=== PATIENT | female | born 1950 | race Hispanic/Latino ===

== ENCOUNTER 2017-05-18 09:49 | Inpatient (IN) | payer MEDICARE ==
[2017-05-18] MEDS ORDERED: NITROSTAT SL ONE (10:21)
[2017-05-18] MEDS: NITROSTAT SL ONE ×3 (10:30→11:25)
--- NOTE | 2017-05-18 10:30 | Emergency Department Report ---
ED Chest Pain HPI - General Chief Complaint: Chest Pain Stated Complaint: CHEST PAIN Time Seen by Provider: 05/18/17 10:16 Source: patient, EMS Mode of arrival: Stretcher Limitations: No Limitations - History of Present Illness Initial Comments: Mrs. Ferrari presents with chest pain since yesterday. The pain resolved with nitroglycerin and aspirin. The pain recurred while in the office of Dr. Lovett at [facility]. Patient arrived via EMS. Chest pain transiently improved with ASA and nitroglycerin. Pain has now returned to 10/[address] Lovett communicated with Dr. Carr. Dr. Carr spoke with my ED colleague Dr. Humberto KINCAID Complaint: chest pain -: Gradual, days(s) (1) Onset: during rest Pain Location: substernal Pain Radiation: back Severity: severe Severity scale (0 -10): 10 Quality: squeezing Consistency: constant Improves With: nitroglycerin Worsens With: nothing Context: other (history of non-ST elevation AR LAD was stented December [address] Lovett she feels that the recent anginal is due to RCA chronically occluded with collaterals despite medical management Dr. Lovett felt the patient may need possible PTCA of chronically occluded RCA) Treatments Prior to Arrival: aspirin, nitroglycerin - Related Data Home Medications Medication Instructions Recorded Confirmed Last Taken Metoprolol [Lopressor TAB] 50 mg PO BID 10/26/16 02/28/17 10/26/16 Furosemide [Lasix] 20 mg PO DAILY 02/28/17 02/28/17 Unknown methOCARBAMOL [Robaxin TAB] 1,000 mg PO Q8H PRN 02/28/17 02/28/17 Unknown Previous Rx's Medication Instructions Recorded Last Taken Type AtorvaSTATin [Lipitor] 40 mg PO QHS #30 tablet 12/30/15 10/26/16 Rx Losartan [Cozaar] 50 mg PO QDAY #30 tablet 12/30/15 10/26/16 Rx Nitroglycerin [Nitrostat] 0.4 mg SL .Q5MIN PRN #60 tablet 12/30/15 10/26/16 Rx Acetaminophen [Acetaminophen TAB] 325 mg PO Q6H PRN #30 tablet 03/01/17 Unknown Rx Aspirin EC [Aspirin Enteric Coated 81 mg PO DAILY #30 tablet 03/01/17 Unknown Rx TAB] AtorvaSTATin [Lipitor] 40 mg PO QHS #30 tablet 03/01/17 Unknown Rx Clopidogrel [Plavix] 75 mg PO DAILY #30 tablet 03/01/17 Unknown Rx ISOSORBIDE MONOnitrate [Imdur ER] 60 mg PO QDAY #30 day 03/01/17 Unknown Rx LORazepam [Ativan] 1 mg PO DAILY PRN tablet 03/01/17 Unknown Rx Pantoprazole [Protonix TAB] 40 mg PO QDAY #7 day 03/01/17 Unknown Rx Ranolazine ER [Ranexa ER] 1,000 mg PO BID #60 day 03/01/17 Unknown Rx Allergies Allergy/AdvReac Type Severity Reaction Status Date / Time No Known Allergies Allergy Unverified 12/24/15 08:47 Heart Score - HEART Score History: Highly suspicious EKG: Non-specific Age: > 65 Risk factors: > 3 risk factors or hx of atherosclerotic disease Troponin: < normal limit HEART Score: 7 ED Review of Systems ROS: Stated complaint: CHEST PAIN Other details as noted in HPI Comment: All other systems reviewed and negative Constitutional: denies: fever, malaise Respiratory: denies: cough Cardiovascular: chest pain ED Past Medical Hx - Past Medical History Hx Hypertension: Yes Hx Heart Attack/AMI: Yes Hx Congestive Heart Failure: Yes Hx Arthritis: Yes - Surgical History Hx Coronary Stent: Yes - Social History Smoking Status: Former Smoker - Medications Home Medications: Home Medications Medication Instructions Recorded Confirmed Last Taken Type AtorvaSTATin [Lipitor] 40 mg PO QHS #30 tablet 12/30/15 02/28/17 10/26/16 Rx Losartan [Cozaar] 50 mg PO QDAY #30 tablet 12/30/15 02/28/17 10/26/16 Rx Nitroglycerin [Nitrostat] 0.4 mg SL .Q5MIN PRN #60 tablet 12/30/15 02/28/17 Rx Metoprolol [Lopressor TAB] 50 mg PO BID 10/26/16 02/28/17 10/26/16 History Furosemide [Lasix] 20 mg PO DAILY 02/28/17 02/28/17 Unknown History methOCARBAMOL [Robaxin TAB] 1,000 mg PO Q8H PRN 02/28/17 02/28/17 Unknown History Acetaminophen [Acetaminophen TAB] 325 mg PO Q6H PRN #30 tablet 01/18/18 Unknown Rx Aspirin EC [Aspirin Enteric Coated 81 mg PO DAILY #30 tablet 03/01/17 Unknown Rx TAB] AtorvaSTATin [Lipitor] 40 mg PO QHS #30 tablet 03/01/17 Unknown Rx Clopidogrel [Plavix] 75 mg PO DAILY #30 tablet 03/01/17 Unknown Rx ISOSORBIDE MONOnitrate [Imdur ER] 60 mg PO QDAY #30 day 03/01/17 Unknown Rx LORazepam [Ativan] 1 mg PO DAILY PRN tablet 03/01/17 Unknown Rx Pantoprazole [Protonix TAB] 40 mg PO QDAY #7 day 03/01/17 Unknown Rx Ranolazine ER [Ranexa ER] 1,000 mg PO BID #60 day 03/01/17 Unknown Rx ED Physical Exam - General Limitations: No Limitations General appearance: alert, other (appears in severe pain) - Head Head exam: Present: atraumatic, normocephalic - Eye Eye exam: Present: normal appearance - ENT ENT exam: Present: mucous membranes moist - Neck Neck exam: Present: normal inspection - Respiratory Respiratory exam: Present: normal lung sounds bilaterally. Absent: respiratory distress, wheezes, rales, rhonchi - Cardiovascular Cardiovascular Exam: Present: regular rate, normal rhythm, normal heart sounds. Absent: systolic murmur, diastolic murmur, rubs, gallop - GI/Abdominal GI/Abdominal exam: Present: soft, normal bowel sounds. Absent: distended, tenderness, guarding, rebound - Extremities Exam Extremities exam: Present: normal inspection - Back Exam Back exam: Present: normal inspection - Neurological Exam Neurological exam: Present: alert, oriented X3 - Psychiatric Psychiatric exam: Present: normal affect, normal mood - Skin Skin exam: Present: warm, dry, intact, normal color. Absent: rash ED Course Vital Signs 05/18/17 10:01 Temperature 97.8 F Pulse Rate 64 Respiratory 17 Rate Blood Pressure 149/78 O2 Sat by Pulse 98 Oximetry - Reevaluation(s) Reevaluation #1: 05/18/17 10:33 I reviewed EKG sent with the patient from Dr. Lovett's office. I reviewed 12 lead heart tracing for EMS. Both revealed inferior and anterior Q waves without significant ST elevation or acute ischemia LAYNE score - Layne Score Age > 65: (1) Yes Aspirin use within the Past 7 Days: (1) Yes 3 or more CAD Risk Factors: (1) Yes 2 or more Angina events in past 24 hrs: (0) No Known CAD with more than 50% Stenosis: (1) Yes Elevated Cardiac Markers: (0) No ST Deviation Greater than 0.5mm: (0) No LAYNE Score: 4 ED Medical Decision Making - Medical Decision Making Mrs. Ferrari will be admitted for unstable angina, acute coronary syndrome. I have discussed this case with pharmacy delivery driver Dr. Carr. Critical care attestation.: If time is entered above; I have spent that time in minutes in the direct care of this critically ill patient, excluding procedure time. ED Disposition Clinical Impression: Acute coronary syndrome, Unstable angina pectoris due to coronary arteriosclerosis Disposition: 09 OP ADMIT IP TO THIS HOSP Is pt being admited?: Yes Does the pt Need Aspirin: No Condition: Stable Time of Disposition: 10:36
--- NOTE | 2017-05-18 10:56 | XRay Report ---
PORTABLE CHEST INDICATION: Chest pain. COMPARISON: 02/28/2017 FINDINGS: Portable, frontal chest radiograph demonstrates stable cardiomediastinal silhouette, slight aortic knob calcifications and slightly prominent/crowded lung markings centrally. Mild biapical scarring/pleural thickening. No pleural effusions or CHF. EKG leads. Intact bones. CONCLUSION: No acute chest process or significant interval change, as described. Thank you for the opportunity to participate in this patient's care.
[2017-05-18] MEDS ORDERED: TRIDIL DRIP 50MG/250ML 50 MG/250 ML BOTTLE IV SCH (11:00)
[2017-05-18 11:09] LABS: Basophils % (Auto) 0.7 % (0.0-1.8); Eosinophils # (Auto) 0.3 K/mm3 (0.0-0.4); Hematocrit 39.5 % (30.3-42.9); Hemoglobin 12.6 gm/dl (10.1-14.3); Lymphocytes # (Auto) 1.6 K/mm3 (1.2-5.4); Lymphocytes % (Auto) 26.5 % (13.4-35.0); Mean Corpuscular HGB Conc 32 % (30-34); Mean Corpuscular Hemoglobin 29 pg (28-32); Mean Corpuscular Volume 92 fl (79-97); Monocytes # (Auto) 0.3 K/mm3 (0.0-0.8); Monocytes % (Auto) 5.9 % (0.0-7.3); Platelet Count 229 K/mm3 (140-440); Red Blood Count 4.31 M/mm3 (3.65-5.03); Red Cell Distribution Width 16.2 % (13.2-15.2)
[2017-05-18 11:10] LABS: Alanine Aminotransferase 16 units/L (7-56); Albumin 3.7 g/dL (3.9-5); BUN/Creatinine Ratio 23; Blood Urea Nitrogen 21 mg/dL (7-17); Calcium 9.3 mg/dL (8.4-10.2); Hemolysis Index 52
--- NOTE | 2017-05-18 11:12 | Progress Note ---
Assessment and Plan Angina Hx of CAD LHC: patent LAD stent. There was chronic total occlusion of the RCA with left to right collaterals. Left ventricular ejection fraction 35%. Risk factor modification and medical management was recommended. Hypertension Ischemic Cardiomyopathy Recommend: Medical therapy for coronary artery disease to include imdur and ranexa twice a day. Subjective Date of service: 05/18/17 Interval history: This is a 66yr old woman with a history of coronary artery disease. She presented to his flue blower's office this morning with increasing chest pain. 12 lead EKG is a sinus rhythm with old inferior infarct. No acute ischemia. She was sent to the emergency room for further evaluation and management. Patient underwent a cardiac catheterization 2 months ago which reports a patent LAD stent. There was chronic total occlusion of the RCA with left to right collaterals. Left ventricular ejection fraction 35%. Risk factor modification and medical management was recommended. Objective Vital Signs Temp Pulse Resp BP BP Pulse Ox 05/18/17 10:51 18 98 05/18/17 10:40 65 126/75 05/18/17 10:30 68 126/75 05/18/17 10:25 97.8 F 64 17 149/78 98 05/18/17 10:01 97.8 F 64 17 149/78 98
[2017-05-18 11:17] LABS: INR 0.85 (0.87-1.13)
[2017-05-18 11:18] LABS: Partial Thromboplastin Time 22.5 Sec. (24.2-36.6)
--- NOTE | 2017-05-18 12:26 | History and Physical Report ---
History of Present Illness Chief complaint: My chest hurts History of present illness: 66 YO Female with CAD, HTN, CHF, Nicotine Dependence, OA, Obesity presents to ED for evaluation. Pt states that she has experienced pain in her chest for the past 2 days with worsening symptoms over the past 1 day. Pt states that pain is 10/10, substernal, radiates to her back, crushing in nature, not worsened with exertion or relieved with rest. Pt was seen and evaluated in her dark room attendant's office and was sent to ED for further care and evaluation. EMS notified and patient transported to [facility]. Pt denies fever, chills, palpitations, NVD, diaphoresis, shortness of breath, back pain, BRBPR, productive cough, trauma, or recent ill contacts. Pt seen an evaluated in ED and found to have unstable angina. Pt initiated on nitro drip and admitted to ICU. Past History Past Medical History: acute [place], arthritis, CAD, heart failure, hypertension Past Surgical History: Other (cardiac stent placement) Social history: , lives with family. denies: smoking, alcohol abuse, prescription drug abuse Family history: CAD, hypertension Medications and Allergies Allergies Allergy/AdvReac Type Severity Reaction Status Date / Time No Known Allergies Allergy Unverified 12/24/15 08:47 Home Medications Medication Instructions Recorded Confirmed Last Taken Type Losartan [Cozaar] 50 mg PO QDAY #30 tablet 12/30/15 05/18/17 10/26/16 Rx Nitroglycerin [Nitrostat] 0.4 mg SL .Q5MIN PRN #60 tablet 12/30/15 05/18/17 Rx Metoprolol [Lopressor TAB] 50 mg PO BID 10/26/16 05/18/17 10/26/16 History Furosemide [Lasix] 20 mg PO DAILY 02/28/17 05/18/17 Unknown History Aspirin EC [Aspirin Enteric Coated 81 mg PO DAILY #30 tablet 03/01/17 05/18/17 Unknown Rx TAB] AtorvaSTATin [Lipitor] 40 mg PO QHS #30 tablet 03/01/17 05/18/17 Unknown Rx Clopidogrel [Plavix] 75 mg PO DAILY #30 tablet 03/01/17 05/18/17 Unknown Rx Pantoprazole [Protonix TAB] 40 mg PO QDAY #7 day 03/01/17 05/18/17 Unknown Rx Ranolazine ER [Ranexa ER] 1,000 mg PO BID #60 day 03/01/17 05/18/17 Unknown Rx Acetaminophen/Codeine [Tylenol 1 tab PO BID PRN 05/18/17 05/18/17 Unknown History /Codeine # 3 tab] Celecoxib [Celebrex] 100 mg PO BID 05/18/17 05/18/17 Unknown History Duloxetine HCl [Cymbalta] 30 mg PO QDAY 05/18/17 05/18/17 Unknown History Gabapentin [Neurontin] 300 mg PO HS 05/18/17 05/18/17 Unknown History HYDROcodone/APAP 7.5-325 [[place] 1 each PO BID 05/18/17 05/18/17 Unknown History 7.5/325] ISOSORBIDE MONOnitrate [Imdur ER] 60 mg PO QDAY 05/18/17 05/18/17 Unknown History LORazepam [Ativan] 0.5 - 1 mg PO DAILY PRN 05/18/17 05/18/17 Unknown History Active Meds: Active Medications Nitroglycerin/Dextrose (Tridil Drip 50mg/250ml) 50 mg in 250 mls @ 3 mls/hr IV TITR RU; Protocol Last Titration: 05/18/17 12:15 Dose: 40 mcg/min, 12 mls/hr Review of Systems Constitutional: no weight loss, no weight gain, no fever, no chills Ears, nose, mouth and throat: no ear pain, no ear discharge, no tinnitis, no decreased hearing, no nose pain, no nasal congestion, no nasal discharge, no sinus pressure Breasts: no change in shape, no swelling, no mass Cardiovascular: chest pain, no palpitations, no rapid/irregular heart beat, no edema, no lightheadedness Respiratory: no cough, no cough with sputum, no excessive sputum, no hemoptysis Gastrointestinal: no nausea, no vomiting, no diarrhea, no constipation Genitourinary Female: no pelvic pain, no flank pain, no menorrhagia, no dysuria , no urinary frequency, no urgency Rectal: no pain, no incontinence, no bleeding Musculoskeletal: no neck stiffness, no neck pain, no shooting arm pain, no arm numbness/tingling, no low back pain, no shooting leg pain, no leg numbness/ tingling Integumentary: no rash, no pruritis, no redness, no wounds, no jaundice, no boils Neurological: no head injury, no transient paralysis, no paralysis, no weakness , no parathesias, no numbness, no tingling, no seizures, no syncope Psychiatric: no memory loss, no change in sleep habits, no sleep disturbances, no insomnia, no hypersomnia, no change in appetite, no change in libido, no suicidal ideation Endocrine: no cold intolerance, no heat intolerance, no polyphagia, no excessive thirst, no polydipsia, no polyuria, no nocturia, no excessive sweating , no flushing Hematologic/Lymphatic: no easy bruising, no easy bleeding, no lymphadenopathy, no lymphedema Allergic/Immunologic: no urticaria, no allergic rhinitis, no wheezing, no persistent infections, no anaphylaxis, no angioedema Exam - Constitutional Vitals: Temp Pulse Resp BP Pulse Ox 97.8 F 68 18 156/73 98 05/18/17 10:25 05/18/17 11:25 05/18/17 10:51 05/18/17 11:25 05/18/17 10:51 General appearance: Present: mild distress, obese - EENT Eyes: Present: PERRL ENT: hearing intact, clear oral mucosa - Neck Neck: Present: supple, normal ROM - Respiratory Respiratory effort: normal Respiratory: bilateral: CTA - Cardiovascular Heart Sounds: Present: S1 & S2. Absent: rub, click - Extremities Extremities: pulses symmetrical, No edema Peripheral Pulses: within normal limits - Abdominal General gastrointestinal: Present: soft, non-tender, non-distended, normal bowel sounds Female genitourinary: Present: normal - Integumentary Integumentary: Present: clear - Musculoskeletal Musculoskeletal: strength equal bilaterally - Psychiatric Psychiatric: appropriate mood/affect, intact judgment & insight, memory intact - Neurologic Neurologic: CNII-XII intact, gait normal Results - Labs CBC & Chem 7: 05/18/17 10:36 05/18/17 10:40 Labs: Abnormal lab results 05/18/17 05/18/17 05/18/17 Range/Units 10:36 10:40 10:40 RDW 16.2 H (13.2-15.2) % Eos % (Auto) 5.0 H (0.0-4.3) % PT 12.0 L (12.2-14.9) Sec. INR 0.85 L (0.87-1.13) APTT 22.5 L (24.2-36.6) Sec. Sodium 136 L (137-145) mmol/L BUN 21 H (7-17) mg/dL Glucose 111 H (65-100) mg/dL Albumin 3.7 L (3.9-5) g/dL Assessment and Plan - Patient Problems (1) Unstable angina pectoris due to coronary arteriosclerosis Current Visit: Yes Status: Acute Plan to address problem: Nitro drip, cardiology consulted, heparin, supportive care. The high probability of a clinically significant, sudden or life threatening deterioration of the [cardiac, renal, pulmonary] system(s) required my full and direct attention, intervention and personal management. The aggregate critical care time was [65] minutes. This time is in addition to time spent performing reported procedures but includes the following: [x] Data Review and interpretation [x] Patient assessment and monitoring of vital signs [x] Documentation [x] Medication orders and management (2) CHF (congestive heart failure) Current Visit: No Status: Acute Qualifiers: Heart failure type: systolic Heart failure chronicity: acute on chronic Qualified Code(s): I50.23 - Acute on chronic systolic (congestive) heart failure Plan to address problem: Cardiology consulted in ED: Admit to ICU, nitro drip as per cardiology team, monitor uop q shift, strict I/O, daily weight, afterload reduction, diuresis, low sodium diet. (3) HTN (hypertension) Current Visit: No Status: Acute (4) CAD (coronary artery disease) Current Visit: No Status: Chronic Qualifiers: Associated angina: with angina and documented spasm Plan to address problem: Cardiology consulted, Nitro drip, pain control, supportive care. (5) DVT prophylaxis Current Visit: No Status: Acute
[2017-05-18] MEDS ORDERED: SODIUM CHLORIDE FLUSH SYRINGE 10 ML IV PRN (12:51)
[2017-05-18] MEDS ORDERED: PROVENTIL IH PRN (12:51)
[2017-05-18] MEDS ORDERED: MORPHINE IV PRN (12:51)
[2017-05-18] MEDS ORDERED: ATIVAN PO PRN (12:52)
[2017-05-18] MEDS: LOPRESSOR PO SCH (21:06)
[2017-05-18] MEDS: NEURONTIN PO SCH (21:06)
[2017-05-18] MEDS: SODIUM CHLORIDE FLUSH SYRINGE 10 ML IV SCH (21:07)
[2017-05-19] MEDS: RANEXA ER PO SCH ×3 (06:52→22:06)
[2017-05-19] MEDS: LASIX PO SCH (07:37)
--- NOTE | 2017-05-19 10:50 | Progress Note ---
Assessment and Plan - Patient Problems (1) Unstable angina pectoris due to coronary arteriosclerosis Current Visit: Yes Status: Acute (2) Cardiomyopathy Current Visit: No Status: Acute (3) HTN (hypertension) Current Visit: No Status: Acute Subjective Date of service: 05/19/17 Interval history: [place] C\O NOW Objective Vital Signs Temp Pulse Resp BP Pulse Ox 05/19/17 08:00 97.4 F L 05/18/17 22:00 90 05/18/17 19:43 96 05/18/17 17:32 98.2 F 05/18/17 17:16 80 10 L 118/64 96 05/18/17 17:00 71 17 112/51 96 05/18/17 16:46 76 19 104/59 97 05/18/17 16:30 70 16 108/63 96 05/18/17 16:15 71 15 114/58 96 05/18/17 16:00 69 23 111/55 95 05/18/17 15:45 71 19 116/62 96 05/18/17 15:30 69 19 111/60 94 05/18/17 15:18 68 20 128/65 97 05/18/17 15:00 69 26 H 112/49 98 05/18/17 14:45 70 18 113/61 98 05/18/17 14:30 68 18 131/70 95 05/18/17 14:15 65 17 112/73 96 05/18/17 14:00 66 18 117/64 94 05/18/17 13:46 67 19 113/63 95 05/18/17 13:30 67 18 117/68 95 05/18/17 13:15 67 16 114/60 95 05/18/17 13:00 67 18 116/57 95 05/18/17 12:45 67 19 124/65 95 05/18/17 12:30 68 12 142/61 96 05/18/17 12:16 69 23 139/59 97 05/18/17 12:00 68 19 148/69 94 05/18/17 11:45 67 14 134/71 98 05/18/17 11:30 67 24 127/62 96 05/18/17 11:25 68 156/73 05/18/17 11:16 76 26 H 127/62 97 05/18/17 11:00 67 25 H 127/62 97 05/18/17 10:51 18 98 - Physical Examination General: Other (OW) HEENT: Positive: PERRL Neck: Positive: neck supple Cardiac: Positive: Reg Rate and Rhythm Lungs: Positive: clear to auscultation Abdomen: Positive: Unremarkable - Labs and Meds Cardiac Enzymes 05/18/17 Range/Units 10:40 AST 16 (5-40) units/L Coagulation 05/18/17 Range/Units 10:40 PT 12.0 L (12.2-14.9) Sec. INR 0.85 L (0.87-1.13) APTT 22.5 L (24.2-36.6) Sec. CBC 05/18/17 Range/Units 10:36 WBC 6.0 (4.5-11.0) K/mm3 RBC 4.31 (3.65-5.03) M/mm3 Hgb 12.6 (10.1-14.3) gm/dl Hct 39.5 (30.3-42.9) % Plt Count 229 (140-440) K/mm3 Lymph # 1.6 (1.2-5.4) K/mm3 [place] # 0.3 (0.0-0.8) K/mm3 Eos # 0.3 (0.0-0.4) K/mm3 Baso # 0.0 (0.0-0.1) K/mm3 Comprehensive Metabolic Panel 05/18/17 Range/Units 10:40 Sodium 136 L (137-145) mmol/L Potassium 4.9 (3.6-5.0) mmol/L Chloride 99.0 (98-107) mmol/L Carbon Dioxide 23 (22-30) mmol/L BUN 21 H (7-17) mg/dL Creatinine 0.9 (0.7-1.2) mg/dL Glucose 111 H (65-100) mg/dL Calcium 9.3 (8.4-10.2) mg/dL AST 16 (5-40) units/L ALT 16 (7-56) units/L Alkaline Phosphatase 65 (35-129) units/L Total Protein 6.8 (6.3-8.2) g/dL Albumin 3.7 L (3.9-5) g/dL
[2017-05-19] MEDS: PLAVIX PO SCH (11:00)
[2017-05-19] MEDS: IMDUR PO SCH (11:00)
[2017-05-19] MEDS: HALFPRIN EC PO SCH (11:00)
[2017-05-19] MEDS: COZAAR PO SCH (11:00)
[2017-05-19] MEDS: CYMBALTA PO SCH (11:01)
[2017-05-19] MEDS: PROTONIX PO SCH (11:01)
--- NOTE | 2017-05-19 11:41 | Progress Note ---
Assessment and Plan (1) Unstable angina pectoris due to coronary arteriosclerosis Current Visit: Yes Status: Acute Plan to address problem: s/p Nitro drip, cardiology consulted, heparin, supportive care. (2) CHF (congestive heart failure) Current Visit: No Status: Acute Qualifiers: Heart failure type: systolic Heart failure chronicity: acute on chronic Qualified Code(s): I50.23 - Acute on chronic systolic (congestive) heart failure Plan to address problem: Cardiology consulted in ED: Admit to ICU, nitro drip as per cardiology team, monitor uop q shift, strict I/O, daily weight, afterload reduction, diuresis, low sodium diet. (3) HTN (hypertension) Current Visit: No Status: Acute (4) CAD (coronary artery disease) Current Visit: No Status: Chronic Qualifiers: Associated angina: with angina and documented spasm Plan to address problem: Cardiology consulted, Nitro drip, pain control, supportive care. (5) DVT prophylaxis Current Visit: No Status: Acute Brief history: Radiological test: Hospitalist Physical exam: GENERAL: well-developed and well-nourished lying on bed appeared to be in no discomfort. HEENT: Normocephalic. Atraumatic. No conjunctival congestion or icterus. Patient has moist mucous membranes. NECK: Supple. Trachea midline. CHEST/LUNGS: Clear to auscultated bilaterally, breathing nonlabored. No wheezes crackles or rhonchi. HEART/CARDIOVASCULAR: Regular in rate and rhythm. S1 and S2 positive. ABDOMEN: Abdomen is soft, nontender. Patient has normal bowel sounds. SKIN: There is no rash. Warm and dry. NEURO: No focal motor deficit. Follows command. MUSCULOSKELETAL: No joint effusion or tenderness. EXTRIMITY: No edema, no cyanosis or clubbing. PSYCH: Cooperative. Subjective Date of service: 05/19/17 Interval history: Patient seen and examined. Medical records and medication list reviewed. No acute event overnight noted by the RN. Patient denies any chest pain or difficulty breathing. Discussed plan of care at bedside with patient. Objective - Constitutional Vitals: Vital Signs - 12hr 05/19/17 08:00 Temperature 97.4 F L - Labs CBC & Chem 7: 05/18/17 10:36 05/18/17 10:40 Labs: Abnormal lab results 05/18/17 Range/Units 17:57 D-Dimer 287.23 H (0-234) ng/mlDDU
[2017-05-19] MEDS: LOPRESSOR PO SCH ×2 (13:00→22:06)
--- NOTE | 2017-05-19 15:02 | Consultation ---
History of Present Illness Consult date: 05/19/17 Requesting physician: KUSH NG Reason for consult: other (Unstable Angina) History of present illness: PULMONARY/CCM CONSULT NOTE (Full dictation # ) Please see dictated notes for full details Past History Past Medical History: acute [place], arthritis, CAD, heart failure, hypertension Past Surgical History: Other (cardiac stent placement) Social history: , lives with family. denies: smoking, alcohol abuse, prescription drug abuse Family history: CAD, hypertension Medications and Allergies Allergies Allergy/AdvReac Type Severity Reaction Status Date / Time No Known Allergies Allergy Unverified 12/24/15 08:47 Home Medications Medication Instructions Recorded Confirmed Last Taken Type Losartan [Cozaar] 50 mg PO QDAY #30 tablet 12/30/15 05/18/17 10/26/16 Rx Nitroglycerin [Nitrostat] 0.4 mg SL .Q5MIN PRN #60 tablet 12/30/15 05/18/17 Rx Metoprolol [Lopressor TAB] 50 mg PO BID 10/26/16 05/18/17 10/26/16 History Furosemide [Lasix] 20 mg PO DAILY 02/28/17 05/18/17 Unknown History Aspirin EC [Aspirin Enteric Coated 81 mg PO DAILY #30 tablet 03/01/17 05/18/17 Unknown Rx TAB] AtorvaSTATin [Lipitor] 40 mg PO QHS #30 tablet 03/01/17 05/18/17 Unknown Rx Clopidogrel [Plavix] 75 mg PO DAILY #30 tablet 03/01/17 05/18/17 Unknown Rx Pantoprazole [Protonix TAB] 40 mg PO QDAY #7 day 03/01/17 05/18/17 Unknown Rx Ranolazine ER [Ranexa ER] 1,000 mg PO BID #60 day 03/01/17 05/18/17 Unknown Rx Acetaminophen/Codeine [Tylenol 1 tab PO BID PRN 05/18/17 05/18/17 Unknown History /Codeine # 3 tab] Celecoxib [Celebrex] 100 mg PO BID 05/18/17 05/18/17 Unknown History Duloxetine HCl [Cymbalta] 30 mg PO QDAY 05/18/17 05/18/17 Unknown History Gabapentin [Neurontin] 300 mg PO HS 05/18/17 05/18/17 Unknown History HYDROcodone/APAP 7.5-325 [[place] 1 each PO BID 05/18/17 05/18/17 Unknown History 7.5/325] ISOSORBIDE MONOnitrate [Imdur ER] 60 mg PO QDAY 05/18/17 05/18/17 Unknown History LORazepam [Ativan] 0.5 - 1 mg PO DAILY PRN 05/18/17 05/18/17 Unknown History Active Meds: Active Medications Albuterol (Proventil) 2.5 mg IH Q3HRT PRN PRN Reason: Shortness Of Breath Aspirin (Halfprin Ec) 81 mg PO DAILY [facility] Last Admin: 05/19/17 11:00 Dose: 81 mg Atorvastatin Calcium (Lipitor) 40 mg PO QHS [facility] Last Admin: 05/18/17 21:06 Dose: 40 mg Celecoxib (Celebrex) 100 mg PO BID [facility] Last Admin: 05/19/17 12:50 Dose: Not Given Clopidogrel Bisulfate (Plavix) 75 mg PO DAILY [facility] Last Admin: 05/19/17 11:00 Dose: 75 mg Duloxetine HCl (Cymbalta) 30 mg PO QDAY [facility] Last Admin: 05/19/17 11:01 Dose: 30 mg Furosemide (Lasix) 20 mg PO DAILY@0600 [facility] Last Admin: 05/19/17 07:37 Dose: 20 mg Gabapentin (Neurontin) 300 mg PO HS [facility] Last Admin: 05/18/17 21:06 Dose: 300 mg Nitroglycerin/Dextrose (Tridil Drip 50mg/250ml) 50 mg in 250 mls @ 3 mls/hr IV TITR [facility]; Protocol Last Titration: 05/18/17 18:25 Dose: Infused Isosorbide Mononitrate (Imdur) 60 mg PO QDAY [facility] Last Admin: 05/19/17 11:00 Dose: 60 mg Lorazepam (Ativan) 1 mg PO DAILY PRN PRN Reason: Anxiety Last Admin: 05/18/17 21:06 Dose: 1 mg Losartan Potassium (Cozaar) 50 mg PO QDAY [facility] Last Admin: 05/19/17 11:00 Dose: 50 mg Metoprolol Tartrate (Lopressor) 50 mg PO BID [facility] Last Admin: 05/19/17 13:00 Dose: Not Given Morphine Sulfate (Morphine) 2 mg IV Q4H PRN PRN Reason: Pain, Moderate (4-6) Last Admin: 05/18/17 13:16 Dose: 2 mg Pantoprazole Sodium (Protonix) 40 mg PO QDAY [facility] Last Admin: 05/19/17 11:01 Dose: 40 mg Ranolazine (Ranexa Er) 1,000 mg PO BID [facility] Last Admin: 05/19/17 06:52 Dose: Not Given Sodium Chloride (Sodium Chloride Flush Syringe 10 Ml) 10 ml IV BID [facility] Last Admin: 05/18/17 21:07 Dose: 10 ml Sodium Chloride (Sodium Chloride Flush Syringe 10 Ml) 10 ml IV PRN PRN PRN Reason: LINE FLUSH Physical Examination Vital signs: Vital Signs Pulse Resp Pulse Ox 63 17 98 05/18/17 09:49 05/18/17 09:49 05/18/17 09:49 Results - Laboratory Findings CBC and BMP: 05/18/17 10:36 05/18/17 10:40 PT/INR, D-dimer PT 12.0 Sec. (12.2-14.9) L 05/18/17 10:40 INR 0.85 (0.87-1.13) L 05/18/17 10:40 D-Dimer 287.23 ng/mlDDU (0-234) H 05/18/17 17:57 Abnormal lab findings: Abnormal Labs 05/18/17 05/18/17 05/18/17 10:36 10:40 10:40 RDW 16.2 H Eos % (Auto) 5.0 H PT 12.0 L INR 0.85 L APTT 22.5 L D-Dimer Sodium 136 L BUN 21 H Glucose 111 H Albumin 3.7 L 05/18/17 17:57 RDW Eos % (Auto) PT INR APTT D-Dimer 287.23 H Sodium BUN Glucose Albumin
[2017-05-19] MEDS: NEURONTIN PO SCH (22:06)
[2017-05-19] MEDS: SODIUM CHLORIDE FLUSH SYRINGE 10 ML IV SCH ×2 (22:11)
[2017-05-20] MEDS: LASIX PO SCH (05:21)
[2017-05-20] MEDS: RANEXA ER PO SCH (09:40)
[2017-05-20] MEDS: CYMBALTA PO SCH (09:40)
[2017-05-20] MEDS: HALFPRIN EC PO SCH (09:40)
[2017-05-20] MEDS: PROTONIX PO SCH (09:40)
[2017-05-20] MEDS: COZAAR PO SCH (09:41)
[2017-05-20] MEDS: PLAVIX PO SCH (09:41)
[2017-05-20] MEDS: IMDUR PO SCH (09:42)
[2017-05-20] MEDS: LOPRESSOR PO SCH (09:42)
[2017-05-20] MEDS: SODIUM CHLORIDE FLUSH SYRINGE 10 ML IV SCH (09:43)
--- NOTE | 2017-05-20 11:21 | Progress Note ---
Assessment and Plan - Patient Problems (1) Unstable angina pectoris due to coronary arteriosclerosis Current Visit: Yes Status: Acute (2) Cardiomyopathy Current Visit: No Status: Acute (3) HTN (hypertension) Current Visit: No Status: Acute Subjective Date of service: 05/20/17 Interval history: NO CV C\O NOW,,,AMBULATED SIN CP MILD EDEMA--PCP CHECKING FOR DVT D\C SOON WITH ANTIANGINAL Rx Objective Vital Signs Temp Pulse Pulse Resp BP BP Pulse Ox 05/20/17 10:12 61 20 05/20/17 10:00 62 05/20/17 09:42 61 108/67 05/20/17 09:41 61 108/67 05/20/17 08:28 97.3 F L 61 22 108/67 98 05/20/17 08:27 96 05/20/17 04:49 97.9 F 58 L 20 132/52 96 05/20/17 01:16 97.4 F L 87 111/42 05/20/17 00:13 58 L 92 05/19/17 20:38 97.9 F 78 20 123/67 94 05/19/17 17:47 98.1 F 71 22 109/58 95 05/19/17 16:59 97.5 F L 68 20 112/64 93 05/19/17 13:41 81 27 H 143/70 97 05/19/17 13:31 74 8 L 143/70 98 05/19/17 13:21 75 14 143/70 96 05/19/17 13:11 80 15 143/70 98 05/19/17 13:01 74 12 143/70 97 05/19/17 12:51 76 15 143/70 98 05/19/17 12:41 78 16 143/70 97 05/19/17 12:31 78 15 143/70 96 05/19/17 12:21 77 13 143/70 94 05/19/17 12:11 79 13 143/70 97 05/19/17 12:01 78 14 143/70 98 05/19/17 11:51 77 16 143/70 96 05/19/17 11:41 75 15 143/70 95 05/19/17 11:31 70 20 143/70 98 05/19/17 11:21 65 21 143/70 98 - Physical Examination General: Other (OW) HEENT: Positive: PERRL Neck: Positive: neck supple Cardiac: Positive: Reg Rate and Rhythm Lungs: Positive: clear to auscultation Abdomen: Positive: Unremarkable Extremities: Present: edema (TR)
--- NOTE | 2017-05-20 14:17 | Discharge Summary ---
Providers - Providers Date of Admission: 05/18/17 12:51 Date of discharge: 05/20/17 Attending physician: STEFF SHERIFF 05/18/17 10:24 Consult to Cardiology [CONS] Stat Consulting Provider: BROOK REED Reason For Exam: Unstable angina 05/18/17 11:41 Consult to Physician [CONS] Stat Comment: Consulting Provider: JUNE LAN Physician Instructions: Reason For Exam: ICU admit 05/19/17 11:43 Physical Therapy Evaluation and Treat [CONS] Routine Comment: Reason For Exam: d/c clearance Primary care physician: PALLETIZER OPERATOR Hospitalization Condition: Stable Hospital course: Discharge diagnosis and management: / Unstable angina pectoris due to coronary arteriosclerosis / CHF (congestive heart failure) / HTN (hypertension) / CAD (coronary artery disease) / DVT prophylaxis Disposition: - TO HOME OR SELFCARE Time spent for discharge: 32 minutes Core Measure Documentation - Palliative Care Palliative Care/ Comfort Measures: Not Applicable - Core Measures Any of the following diagnoses?: history only Exam - Constitutional Vitals: Temp Pulse Resp BP Pulse Ox 97.3 F L 61 20 108/67 98 05/20/17 08:28 05/20/17 10:12 05/20/17 10:12 05/20/17 09:42 05/20/17 08:28 General appearance: Present: no acute distress, well-nourished - EENT Eyes: Present: PERRL ENT: hearing intact, clear oral mucosa - Neck Neck: Present: supple, normal ROM - Respiratory Respiratory effort: normal Respiratory: bilateral: CTA - Cardiovascular Heart Sounds: Present: S1 & S2. Absent: rub, click - Extremities Extremities: pulses symmetrical, No edema Peripheral Pulses: within normal limits - Abdominal General gastrointestinal: Present: soft, non-tender, non-distended, normal bowel sounds - Integumentary Integumentary: Present: clear, warm, dry - Musculoskeletal Musculoskeletal: gait normal, strength equal bilaterally - Psychiatric Psychiatric: appropriate mood/affect, intact judgment & insight - Neurologic Neurologic: CNII-XII intact, moves all extremities Plan Activity: advance as tolerated Weight Bearing Status: Weight Bear as Tolerated Diet: low fat, low salt Additional Instructions: f/u with piping manager in one week Follow up with: PRIMARY CARE, [Primary Care Provider] - 7 Days
[2017-05-20 15:46] VITALS: BP 125/64
== END 2017-05-20 18:21 | disposition home or self-care (01) | DRG 303 ==
LOC: ED 09:49 → CC1 12:51 → 4A 05-19 14:13
PROVIDERS: ADMIT Internal Medicine; ATTEND Internal Medicine
DX: I25.110 Atherosclerotic heart disease of native coronary artery with unstable angina pectoris (principal); I50.22 Chronic systolic (congestive) heart failure; M19.90 Unspecified osteoarthritis, unspecified site; E66.9 Obesity, unspecified; I25.5 Ischemic cardiomyopathy; I11.0 Hypertensive heart disease with heart failure; Z79.899 Other long term (current) drug therapy; I25.2 Old myocardial infarction; Z95.5 Presence of coronary angioplasty implant and graft; Z68.39 Body mass index [BMI] 39.0-39.9, adult; Z82.49 Family history of ischemic heart disease and other diseases of the circulatory system
CPT/HCPCS: 36415; 71045; 80053; 83880; 84484; 85025; 85379; 85610; 85730; 93005; 93010; 93970; 94760; 96365; 96375; A9270-GY; J2270

== ENCOUNTER 2017-06-07 18:26 | Inpatient (IN) | payer MEDICARE ==
[2017-06-07] MEDS ORDERED: ASPIRIN PO ONE (18:32)
[2017-06-07 19:06] LABS: Calcium 9.3 mg/dL (8.4-10.2)
[2017-06-07 19:09] LABS: Basophils # (Auto) 0.1 K/mm3 (0.0-0.1); Basophils % (Auto) 0.9 % (0.0-1.8); Eosinophils # (Auto) 0.4 K/mm3 (0.0-0.4); Eosinophils % (Auto) 5.4 % (0.0-4.3); Hematocrit 35.7 % (30.3-42.9); Hemoglobin 11.7 gm/dl (10.1-14.3); Lymphocytes # (Auto) 1.7 K/mm3 (1.2-5.4); Lymphocytes % (Auto) 22.1 % (13.4-35.0); Mean Corpuscular HGB Conc 33 % (30-34); Mean Corpuscular Hemoglobin 29 pg (28-32); Mean Corpuscular Volume 89 fl (79-97); Monocytes # (Auto) 0.4 K/mm3 (0.0-0.8); Monocytes % (Auto) 5.6 % (0.0-7.3); Platelet Count 273 K/mm3 (140-440); Red Cell Distribution Width 14.7 % (13.2-15.2)
[2017-06-07 19:11] LABS: INR 0.9 (0.87-1.13); Partial Thromboplastin Time 23.7 Sec. (24.2-36.6)
[2017-06-07] MEDS ORDERED: LASIX IV ONE (20:35)
[2017-06-07] MEDS ORDERED: MORPHINE IV ONE (20:35)
[2017-06-07] MEDS ORDERED: NITRO-BID 2% TP ONE (20:35)
[2017-06-07] MEDS ORDERED: HEPARIN 10,000 UNITS/10 ML IV ONE (20:36)
--- NOTE | 2017-06-07 21:27 | Emergency Department Report ---
ED Chest Pain HPI - General Chief Complaint: Chest Pain Stated Complaint: CHEST PAIN Time Seen by Provider: 06/07/17 20:04 Source: patient Mode of arrival: Ambulatory Limitations: No Limitations - History of Present Illness Initial Comments: Mrs. Ferrari is a pleasant 66 yo female with hx of CHF and CAD. Hx of [place]. She was recently admitted to the hospital earlier this month for unstable angina. She was also recently discharged Sunday 6 days ago from [facility]. She had cardiac 4 stents placed during recent hospitalization at [place]. She developed chest pain yesterday. Chest pain is episodic. Mild improvement with nitroglycerin without complete relief. She also has had feert swelling for several days. She contacted her cardiac nurse who recommended double dose of furosemide. She takes 40 mg of furosemide daily. She took aspirin 6 tablets prior to arrival. She took 2 nitroglycerin tablets prior to arrival. Current chest pain is 6 out of 10. MD Complaint: chest pain -: Gradual Onset: during rest Pain Location: substernal Pain Radiation: back Severity scale (0 -10): 6 Quality: dull Consistency: intermittent Improves With: nitroglycerin Worsens With: nothing Context: recent illness, recent surgery re: dyspnea Other Symptoms: denies: cough, fever, syncope, rash, palpitations, burping Treatments Prior to Arrival: aspirin, nitroglycerin - Related Data Home Medications Medication Instructions Recorded Confirmed Last Taken Metoprolol [Lopressor TAB] 50 mg PO BID 10/26/16 05/18/17 10/26/16 Furosemide [Lasix] 20 mg PO DAILY 02/28/17 05/18/17 Unknown Acetaminophen/Codeine [Tylenol 1 tab PO BID PRN 05/18/17 05/18/17 Unknown /Codeine # 3 tab] Celecoxib [Celebrex] 100 mg PO BID 05/18/17 05/18/17 Unknown Duloxetine HCl [Cymbalta] 30 mg PO QDAY 05/18/17 05/18/17 Unknown Gabapentin [Neurontin] 300 mg PO HS 05/18/17 05/18/17 Unknown HYDROcodone/APAP 7.5-325 [[place] 1 each PO BID 05/18/17 05/18/17 Unknown 7.5-325 mg TAB] ISOSORBIDE MONOnitrate [Imdur ER] 60 mg PO QDAY 05/18/17 05/18/17 Unknown LORazepam [Ativan] 0.5 - 1 mg PO DAILY PRN 05/18/17 05/18/17 Unknown Previous Rx's Medication Instructions Recorded Last Taken Type Losartan [Cozaar] 50 mg PO QDAY #30 tablet 12/30/15 10/26/16 Rx Nitroglycerin [Nitrostat] 0.4 mg SL .Q5MIN PRN #60 tablet 12/30/15 10/26/16 Rx Aspirin EC [Aspirin Enteric Coated 81 mg PO DAILY #30 tablet 03/01/17 Unknown Rx TAB] AtorvaSTATin [Lipitor] 40 mg PO QHS #30 tablet 03/01/17 Unknown Rx Clopidogrel [Plavix] 75 mg PO DAILY #30 tablet 03/01/17 Unknown Rx Pantoprazole [Protonix TAB] 40 mg PO QDAY #7 day 03/01/17 Unknown Rx Ranolazine ER [Ranexa ER] 1,000 mg PO BID #60 day 03/01/17 Unknown Rx Allergies Allergy/AdvReac Type Severity Reaction Status Date / Time No Known Allergies Allergy Unverified 12/24/15 08:47 Heart Score - HEART Score History: Highly suspicious EKG: Non-specific Age: > 65 Risk factors: > 3 risk factors or hx of atherosclerotic disease Troponin: 1-3x normal limit HEART Score: 8 ED Review of Systems ROS: Stated complaint: CHEST PAIN Other details as noted in HPI Comment: All other systems reviewed and negative Constitutional: denies: fever, malaise Respiratory: denies: cough ED Past Medical Hx - Past Medical History Hx Hypertension: Yes Hx Heart Attack/AMI: Yes Hx Congestive Heart Failure: Yes Hx Arthritis: Yes - Surgical History Hx Coronary Stent: Yes Additional Surgical History: cardiac stents - Social History Smoking Status: Former Smoker Substance Use Type: None - Medications Home Medications: Home Medications Medication Instructions Recorded Confirmed Last Taken Type Losartan [Cozaar] 50 mg PO QDAY #30 tablet 12/30/15 05/18/17 10/26/16 Rx Nitroglycerin [Nitrostat] 0.4 mg SL .Q5MIN PRN #60 tablet 12/30/15 05/18/17 Rx Metoprolol [Lopressor TAB] 50 mg PO BID 10/26/16 05/18/17 10/26/16 History Furosemide [Lasix] 20 mg PO DAILY 02/28/17 05/18/17 Unknown History Aspirin EC [Aspirin Enteric Coated 81 mg PO DAILY #30 tablet 03/01/17 05/18/17 Unknown Rx TAB] AtorvaSTATin [Lipitor] 40 mg PO QHS #30 tablet 03/01/17 05/18/17 Unknown Rx Clopidogrel [Plavix] 75 mg PO DAILY #30 tablet 03/01/17 05/18/17 Unknown Rx Pantoprazole [Protonix TAB] 40 mg PO QDAY #7 day 03/01/17 05/18/17 Unknown Rx Ranolazine ER [Ranexa ER] 1,000 mg PO BID #60 day 03/01/17 05/18/17 Unknown Rx Acetaminophen/Codeine [Tylenol 1 tab PO BID PRN 05/18/17 05/18/17 Unknown History /Codeine # 3 tab] Celecoxib [Celebrex] 100 mg PO BID 05/18/17 05/18/17 Unknown History Duloxetine HCl [Cymbalta] 30 mg PO QDAY 05/18/17 05/18/17 Unknown History Gabapentin [Neurontin] 300 mg PO HS 05/18/17 05/18/17 Unknown History HYDROcodone/APAP 7.5-325 [[place] 1 each PO BID 05/18/17 05/18/17 Unknown History 7.5-325 mg TAB] ISOSORBIDE MONOnitrate [Imdur ER] 60 mg PO QDAY 05/18/17 05/18/17 Unknown History LORazepam [Ativan] 0.5 - 1 mg PO DAILY PRN 05/18/17 05/18/17 Unknown History ED Physical Exam - General Limitations: No Limitations General appearance: alert, in no apparent distress - Head Head exam: Present: atraumatic, normocephalic - Eye Eye exam: Present: normal appearance - ENT ENT exam: Present: mucous membranes moist - Neck Neck exam: Present: normal inspection - Respiratory Respiratory exam: Present: normal lung sounds bilaterally. Absent: respiratory distress, wheezes, rales, rhonchi - Cardiovascular Cardiovascular Exam: Present: regular rate, normal rhythm, normal heart sounds. Absent: bradycardia, tachycardia, systolic murmur, diastolic murmur, rubs, gallop - GI/Abdominal GI/Abdominal exam: Present: soft, normal bowel sounds. Absent: distended, tenderness, guarding, rebound - Extremities Exam Extremities exam: Present: normal inspection - Back Exam Back exam: Present: normal inspection - Neurological Exam Neurological exam: Present: alert, oriented X3 - Psychiatric Psychiatric exam: Present: normal affect, normal mood - Skin Skin exam: Present: warm, dry, intact, normal color. Absent: rash ED Course Vital Signs 06/07/17 06/07/17 18:30 20:44 Pulse Rate 65 58 L Respiratory 16 Rate Blood Pressure 121/55 112/45 O2 Sat by Pulse 97 Oximetry LAYNE score - Layne Score Age > 65: (1) Yes Aspirin use within the Past 7 Days: (1) Yes 3 or more CAD Risk Factors: (1) Yes 2 or more Angina events in past 24 hrs: (0) No Known CAD with more than 50% Stenosis: (1) Yes Elevated Cardiac Markers: (0) No ST Deviation Greater than 0.5mm: (0) No LAYNE Score: 4 ED Medical Decision Making - Lab Data Result diagrams: 06/07/17 18:39 06/07/17 18:39 Laboratory Results - last 24 hr 06/07/17 06/07/17 06/07/17 18:39 18:39 18:53 WBC 7.6 RBC 4.00 Hgb 11.7 Hct 35.7 MCV 89 MCH 29 MCHC 33 RDW 14.7 Plt Count 273 Lymph % (Auto) 22.1 [place] % (Auto) 5.6 Eos % (Auto) 5.4 H Baso % (Auto) 0.9 Lymph # 1.7 [place] # 0.4 Eos # 0.4 Baso # 0.1 Seg Neutrophils % 66.0 Seg Neutrophils # 5.0 PT 12.6 INR 0.90 APTT 23.7 L Sodium 135 L Potassium 3.7 Chloride 91.8 L Carbon Dioxide 28 Anion Gap 19 BUN 25 H Creatinine 1.2 Estimated GFR 45 BUN/Creatinine Ratio 21 Glucose 123 H Calcium 9.3 Troponin T 0.093 H Vital Signs - 24 hr 06/07/17 06/07/17 18:30 20:44 Pulse Rate 65 58 L Respiratory 16 Rate Blood Pressure 121/55 112/45 O2 Sat by Pulse 97 Oximetry - EKG Data When compared to previous EKG there are: no significant change Interpretation: no acute changes, unchanged when compared t (05/18/2017) 06/07/17 21:31 EKG obtained 1834 Normal sinus rhythm rate of a wall axis prolonged QT no signs of ischemiain the significant ST elevation persistent Q waves in inferior leads - Medical Decision Making however presents with unstable angina and CHF exacerbation. EKG did not have acute changes from previous EKG earlier this month. Heparin infusion initiated in the ED. Dr. Ramos cardiolgist consulted on behalf of primary chargemaster analyst Dr. Carr Hospitalist Dr. Viera will admit. Critical care attestation.: If time is entered above; I have spent that time in minutes in the direct care of this critically ill patient, excluding procedure time. ED Disposition Clinical Impression: Unstable angina, Acute exacerbation of CHF (congestive heart failure) Disposition: OP ADMIT IP TO THIS HOSP Is pt being admited?: Yes Does the pt Need Aspirin: No Condition: Stable Time of Disposition: 20:30
--- NOTE | 2017-06-07 22:07 | XRay Report ---
FINAL REPORT PROCEDURE: XR CHEST 1V AP TECHNIQUE: Chest radiograph anteroposterior view. CPT 06662 HISTORY: dyspnea COMPARISON: No prior studies are available for comparison. FINDINGS: Heart: Normal. Mediastinum/Vessels: Normal. Lungs/Pleural space: Normal. Bony thorax: No acute osseous abnormality. Life support devices: None. IMPRESSION: No acute cardiopulmonary abnormality.
[2017-06-07] MEDS: HEPARIN/ 0.45% NACL-25,000 UNIT/500 ML 25,000 UNIT/500 ML BAG IV SCH (22:30)
[2017-06-07 22:52] LABS: Chol/HDL Ratio 4.59 %
[2017-06-07] MEDS ORDERED: XOPENEX IH PRN (22:54)
[2017-06-07] MEDS ORDERED: ZOFRAN IV PRN (22:55)
[2017-06-07] MEDS ORDERED: TYLENOL PO PRN (23:13)
[2017-06-07] MEDS: NITRO-BID 2% TP SCH (23:26)
[2017-06-08 00:06] LABS: Creatine Kinase MB 2.4 ng/mL (0.0-4.0)
[2017-06-08] MEDS ORDERED: HEPARIN 10,000 UNITS/10 ML IV ONE (06:28)
[2017-06-08] MEDS: NITRO-BID 2% TP SCH ×5 (06:43→18:21)
--- NOTE | 2017-06-08 08:21 | Progress Note ---
Assessment and Plan Assessment and plan: --Nonischemic cardiomyopathy; Continue current cardiac medications, cardiology evaluation noted and appreciated Continue current cardiac medications, continue heparin drip Possible heart cath on Sunday --History of coronary artery disease status post PCI[1 week ago and [facility]] Continue current cardiac medications, cardiology following --Dyslipidemia; stable on lipid lowering medications --Ischemic cardiomyopathy; LVEF is 35% Continue current anti-failure medications --Chronic systolic congestive heart failure; stable --DVT prophylaxis; patient on heparin drip Closely monitor the patient and adjust management as needed Plan of care reviewed with the patient. Cardiology recommendations noted and appreciated History Interval history: Patient was admitted for chest pain One week ago had heart cath status post stents in [facility] Today patient denies any chest pain or shortness of breath Cardiology evaluated the patient Alert awake oriented 3 Vital signs reviewed Hospitalist Physical - Constitutional Vitals: Temp Pulse Resp BP Pulse Ox 98.3 F 78 20 112/66 94 06/08/17 04:47 06/08/17 06:43 06/08/17 04:47 06/08/17 06:43 06/08/17 04:47 General appearance: Present: no acute distress, well-nourished, obese (morbidly obese) - EENT Eyes: Present: PERRL, EOM intact - Neck Neck: Present: supple, normal ROM - Respiratory Respiratory effort: normal Respiratory: negative: rales, rhonchi, wheezing - Cardiovascular Rhythm: regular Heart Sounds: Present: S1 & S2 - Extremities Extremities: no ischemia, No edema - Abdominal General gastrointestinal: soft, non-tender, non-distended, normal bowel sounds - Integumentary Integumentary: Present: clear, warm - Psychiatric Psychiatric: appropriate mood/affect, cooperative - Neurologic Neurologic: CNII-XII intact, moves all extremities Results - Labs CBC & Chem 7: 06/07/17 18:39 06/07/17 18:39 Labs: Laboratory Last Values WBC 7.6 K/mm3 (4.5-11.0) 06/07/17 18:39 RBC 4.00 M/mm3 (3.65-5.03) 06/07/17 18:39 Hgb 11.7 gm/dl (10.1-14.3) 06/07/17 18:39 Hct 35.7 % (30.3-42.9) 06/07/17 18:39 MCV 89 fl (79-97) 06/07/17 18:39 MCH 29 pg (28-32) 06/07/17 18:39 MCHC 33 % (30-34) 06/07/17 18:39 RDW 14.7 % (13.2-15.2) 06/07/17 18:39 Plt Count 273 K/mm3 (140-440) 06/07/17 18:39 Lymph % (Auto) 22.1 % (13.4-35.0) 06/07/17 18:39 [place] % (Auto) 5.6 % (0.0-7.3) 06/07/17 18:39 Eos % (Auto) 5.4 % (0.0-4.3) H 06/07/17 18:39 Baso % (Auto) 0.9 % (0.0-1.8) 06/07/17 18:39 Lymph # 1.7 K/mm3 (1.2-5.4) 06/07/17 18:39 [place] # 0.4 K/mm3 (0.0-0.8) 06/07/17 18:39 Eos # 0.4 K/mm3 (0.0-0.4) 06/07/17 18:39 Baso # 0.1 K/mm3 (0.0-0.1) 06/07/17 18:39 Seg Neutrophils % 66.0 % (40.0-70.0) 06/07/17 18:39 Seg Neutrophils # 5.0 K/mm3 (1.8-7.7) 06/07/17 18:39 PT 12.6 Sec. (12.2-14.9) 06/07/17 18:53 INR 0.90 (0.87-1.13) 06/07/17 18:53 APTT 23.7 Sec. (24.2-36.6) L 06/07/17 18:53 Heparin Anti-Xa Level < 0.10 U.I./ml (0.3-0.7) L 06/08/17 05:12 Sodium 135 mmol/L (137-145) L 06/07/17 18:39 Potassium 3.7 mmol/L (3.6-5.0) 06/07/17 18:39 Chloride 91.8 mmol/L (98-107) L 06/07/17 18:39 Carbon Dioxide 28 mmol/L (22-30) 06/07/17 18:39 Anion Gap 19 mmol/L 06/07/17 18:39 BUN 25 mg/dL (7-17) H 06/07/17 18:39 Creatinine 1.2 mg/dL (0.7-1.2) 06/07/17 18:39 Estimated GFR 45 ml/min 06/07/17 18:39 BUN/Creatinine Ratio 21 % 06/07/17 18:39 Glucose 123 mg/dL (65-100) H 06/07/17 18:39 Calcium 9.3 mg/dL (8.4-10.2) 06/07/17 18:39 Total Creatine Kinase 51 units/L (30-135) 06/07/17 23:03 CK-MB (CK-2) 2.4 ng/mL (0.0-4.0) 06/07/17 23:03 CK-MB (CK-2) Rel Index 4.7 (0-4) H 06/07/17 23:03 Troponin T 0.075 ng/mL (0.00-0.029) H D 06/08/17 05:12 Triglycerides 295 mg/dL (2-149) H 06/07/17 22:08 Cholesterol 193 mg/dL (50-199) 06/07/17 22:08 LDL Cholesterol Direct 117 mg/dL (50-130) 06/07/17 22:08 HDL Cholesterol 42 mg/dL (40-59) 06/07/17 22:08 Cholesterol/HDL Ratio 4.59 % 06/07/17 22:08
--- NOTE | 2017-06-08 08:24 | History and Physical Report ---
CHIEF COMPLAINT: Chest pain. HISTORY OF PRESENT ILLNESS: The patient is a 66-year-old female with history of coronary artery disease, status post myocardial infarction, congestive heart failure presenting with chest pain. The patient was recently discharged about six days ago from [facility], where actually she had four cardiac stents placed. The patient started having chest pain the day prior to presentation. She described the pain as intermittent that was relieved with nitroglycerin. There is also complaint of swelling in the ankles going on for some days. The patient denies history of fever or chills,but complained about associated shortness of breath and wheezing. Also, the patient denies history of nausea or vomiting or dizziness. PAST MEDICAL HISTORY: Pertinent for congestive heart failure, coronary artery disease. The patient has past medical history of hypertension and arthritis. PAST SURGICAL HISTORY: Pertinent for coronary stent placed. FAMILY HISTORY: Noncontributory. SOCIAL HISTORY: The patient is a former cigarette smoker, does not smoke currently, does not drink alcohol, and does not use illicit drugs. MEDICATIONS: The patient is on losartan 50 mg by mouth daily, Nitrostat 0.4 mg sublingual every 5 minutes as needed for pain, Lopressor 50 mg by mouth twice daily. The patient is also on Lasix 20 mg by mouth daily, and aspirin 81 mg by mouth daily as well as Lipitor 40 mg by mouth at bedtime. The patient is also on Plavix 75 mg by mouth daily, Protonix 40 mg by mouth daily, Ranexa 1000 mg by mouth twice daily. Also, the patient is on Tylenol No. 3 one by mouth twice daily and Celebrex 100 mg by mouth daily as well as Cymbalta 30 mg by mouth daily. The patient is also on Neurontin 300 mg by mouth at bedtime, and [place] 7.5/325 mg one by mouth twice daily as well as isosorbide mononitrate, Imdur 60 mg by mouth daily, and Ativan 0.5 to 1 mg by mouth daily. ALLERGIES: There are no known drug allergies. REVIEW OF SYSTEMS: CONSTITUTIONAL: There is no fever, no chills, no diaphoresis. HEENT: There is no headache or sore throat. CARDIOVASCULAR SYSTEM: There is chest pain, but no orthopnea. RESPIRATORY SYSTEM: There is shortness of breath and no cough, but there is wheezing as well. GASTROINTESTINAL SYSTEM: There is no nausea, no vomiting, no abdominal pain, diarrhea or constipation. NEUROLOGICAL SYSTEM: There is no numbness, no dizziness, no altered mental status. MUSCULOSKELETAL SYSTEM: There is no joint pain or swelling. DERMATOLOGICAL SYSTEM: There is no skin rash or itching. GENITOURINARY SYSTEM: There is no dysuria, hematuria, or flank pain. Rest of system review is normal. PHYSICAL EXAMINATION: GENERAL: At the time of exam, the patient was found to be alert, oriented x 3, and is mild distress due to shortness of breath. VITAL SIGNS: The patient's vital signs at the time of presentation shows normal temperature with pulse of 65, respiration 16, blood pressure 121/55, O2 sat of 97% on room air. HEENT: Showed pupils to be equal, round, and reactive to light and accommodation. Extraocular muscles are intact. NECK: Supple with no JVD or carotid bruit. CARDIOVASCULAR SYSTEM: Show normal first and second heart sounds, with no gallops or murmur. RESPIRATORY SYSTEM: Show reduced air entry on both sides of the lung with respiratory wheezing. GASTROINTESTINAL SYSTEM: Show abdomen to be full, soft, nontender with no organomegaly or rigidity. NEUROLOGIC: Exam shows no focal deficit. MUSCULOSKELETAL SYSTEM: Show no joint swelling or tenderness. DERMATOLOGICAL SYSTEM: Show no skin rash. GENITOURINARY SYSTEM: Show no costovertebral angle tenderness. PERTINENT LABORATORY AND IMAGING STUDIES: The patient had chest x-ray done that shows no acute cardiopulmonary lesion and the patient's lab results shows a CBC, which was unremarkable except for CBC differential that shows elevated eosinophilic count of 5.4%. The patient's coagulation studies were unremarkable. Chemistry shows low sodium of 135, low chloride of 91.8, with slightly elevated BUN of 25, otherwise, rest of chemistry remained unremarkable. Cardiac enzymes shows normal total CPK with normal CK-MB fraction with elevated CK percentage index and elevated troponin level with first one being 0.093, the second one being elevated with a value of 0.105, the third troponin level has also showed an increase up to 0.110. The patient's lipid panel show high triglyceride and remaining lipid levels were unremarkable. DIAGNOSES: 1. Non-ST elevation myocardial infarction. 2. Chronic obstructive pulmonary disease exacerbation. PLAN: The patient will be admitted to medical floor on telemetry and will remain nothing by mouth with cardiac enzymes that will be monitored every 6 hours x 2 levels. The patient will be on aspirin 325 mg by mouth daily and will have intravenous Lasix 40 mg daily because of edema in the leg. The patient will continue intravenous heparin drip started in the Emergency Room and will be on intravenous Solu-Medrol 60 mg every 8 hours. The patient will also be on intravenous morphine 2 mg every 3 hours as needed for pain and will be on nitro paste 1-inch to anterior chest wall four times a day as well as intravenous Zofran 4 mg every 6 hours for nausea and vomiting. The patient will be on oxygen by nasal cannula. We will continue Cardiology consult with the enlisted aircrew/aerial observer/gunner who is covering the patient's enlisted aircrew/aerial observer/gunner Dr. Carr as indicated by the ER physician. JOB# [id number] LAXMIN/JOSETTE MTDD
[2017-06-08] MEDS: MORPHINE IV PRN ×2 (09:12→11:25)
[2017-06-08] MEDS ORDERED: LASIX IV SCH (10:00)
[2017-06-08] MEDS ORDERED: ASPIRIN PO SCH (10:00)
--- NOTE | 2017-06-08 10:00 | Consultation ---
History of Present Illness Consult date: 06/08/17 Consult reason: chest pain History of present illness: This is a 66yr old woman who is admitted with chest pain. Patient has a history of coronary artery disease an ischemic cardiomyopathy. A cardiac cath 3 months ago demonstrates a widely patent LAD stent and a chronic total occlusion of the right coronary artery. Ejection fraction 35%. Despite maximal medical therapy, patient continued to experience chest pain and just a week ago, patient was referred to [facility] and underwent revascularization of the right coronary artery using synergy drug eluting stents. Patient admits to compliance with plavix and aspirin. Currently, she is chest pain free. She denies shortness of breath. MIld lower extremity edema noted. A chest xray is negative. 12 lead ECG is a sinus rhythm, no acute ischemic changes. Cardiac consultation is requested for further evaluation. Medications and Allergies Allergies Allergy/AdvReac Type Severity Reaction Status Date / Time No Known Allergies Allergy Unverified 12/24/15 08:47 Home Medications Medication Instructions Recorded Confirmed Last Taken Type Losartan [Cozaar] 50 mg PO QDAY #30 tablet 12/30/15 06/08/17 2 Days Ago Rx ~06/06/17 Metoprolol [Lopressor TAB] 50 mg PO BID 10/26/16 06/08/17 2 Days Ago History ~06/06/17 Furosemide [Lasix] 20 mg PO DAILY 02/28/17 06/08/17 2 Days Ago History ~06/06/17 Aspirin EC [Aspirin Enteric Coated 81 mg PO DAILY #30 tablet 03/01/17 06/08/17 2 Days Ago Rx TAB] ~06/06/17 AtorvaSTATin [Lipitor] 40 mg PO QHS #30 tablet 03/01/17 06/08/17 2 Days Ago Rx ~06/06/17 Clopidogrel [Plavix] 75 mg PO DAILY #30 tablet 03/01/17 06/08/17 2 Days Ago Rx ~06/06/17 Ranolazine ER [Ranexa ER] 1,000 mg PO BID #60 day 03/01/17 06/08/17 2 Days Ago Rx ~06/06/17 Celecoxib [Celebrex] 100 mg PO BID 05/18/17 06/08/17 2 Days Ago History ~06/06/17 Duloxetine HCl [Cymbalta] 30 mg PO QDAY 05/18/17 06/08/17 2 Days Ago History ~06/06/17 Gabapentin [Neurontin] 300 mg PO HS 05/18/17 06/08/17 2 Days Ago History ~06/06/17 ISOSORBIDE MONOnitrate [Imdur ER] 60 mg PO QDAY 05/18/17 06/08/17 2 Days Ago History ~06/06/17 Active Meds: Active Medications Acetaminophen (Tylenol) 650 mg PO Q4H PRN PRN Reason: For Pain/Fever/Headache Aspirin (Halfprin Ec) 81 mg PO DAILY [facility] Atorvastatin Calcium (Lipitor) 40 mg PO QHS [facility] Clopidogrel Bisulfate (Plavix) 75 mg PO DAILY [facility] Duloxetine HCl (Cymbalta) 30 mg PO QDAY [facility] Furosemide (Lasix) 20 mg PO DAILY [facility] Gabapentin (Neurontin) 300 mg PO HS [facility] Heparin Sodium/Sodium Chloride (Heparin/ 0.45% Nacl-25,000 Unit/500 Ml) 25,000 unit in 500 mls @ 20 mls/hr IV TITRATE [facility]; Protocol Last Titration: 06/08/17 06:30 Dose: 1,350 units/hr, 27 mls/hr Isosorbide Mononitrate (Imdur) 60 mg PO QDAY [facility] Levalbuterol HCl (Xopenex) 0.63 mg IH Q8HRT PRN PRN Reason: Shortness Of Breath Losartan Potassium (Cozaar) 50 mg PO QDAY [facility] Methylprednisolone Sodium Succinate (Solu-Medrol) 60 mg IV Q8H [facility] Last Admin: 06/08/17 00:12 Dose: 60 mg Metoprolol Tartrate (Lopressor) 50 mg PO BID [facility] Morphine Sulfate (Morphine) 2 mg IV Q3H PRN PRN Reason: Pain, Moderate (4-6) Nitroglycerin (Nitro-Bid 2%) 1 inch TP QIDNTG [facility]; Protocol Last Admin: 06/08/17 06:43 Dose: 1 inch Ondansetron HCl (Zofran) 4 mg IV Q6H PRN PRN Reason: Nausea And Vomiting Ranolazine (Ranexa Er) 1,000 mg PO BID [facility] Physical Examination Vital Signs Pulse Resp BP Pulse Ox 65 16 121/55 97 06/07/17 18:30 06/07/17 18:30 06/07/17 18:30 06/07/17 18:30 General appearance: no acute distress HEENT: Positive: PERRL Cardiac: Positive: Reg Rate and Rhythm Lungs: Positive: Decreased Breath Sounds Neuro: Positive: Grossly Intact Extremities: Present: +1 Edema Results 06/07/17 18:39 06/07/17 18:39 Cardiac Enzymes 06/07/17 Range/Units 23:03 CK-MB (CK-2) 2.4 (0.0-4.0) ng/mL Coagulation 06/07/17 Range/Units 18:53 PT 12.6 (12.2-14.9) Sec. INR 0.90 (0.87-1.13) APTT 23.7 L (24.2-36.6) Sec. Lipids 06/07/17 Range/Units 22:08 Triglycerides 295 H (2-149) mg/dL Cholesterol 193 (50-199) mg/dL HDL Cholesterol 42 (40-59) mg/dL Cholesterol/HDL Ratio 4.59 % CBC 06/07/17 Range/Units 18:39 WBC 7.6 (4.5-11.0) K/mm3 RBC 4.00 (3.65-5.03) M/mm3 Hgb 11.7 (10.1-14.3) gm/dl Hct 35.7 (30.3-42.9) % Plt Count 273 (140-440) K/mm3 Lymph # 1.7 (1.2-5.4) K/mm3 Reagan # 0.4 (0.0-0.8) K/mm3 Eos # 0.4 (0.0-0.4) K/mm3 Baso # 0.1 (0.0-0.1) K/mm3 Comprehensive Metabolic Panel 06/07/17 Range/Units 18:39 Sodium 135 L (137-145) mmol/L Potassium 3.7 (3.6-5.0) mmol/L Chloride 91.8 L (98-107) mmol/L Carbon Dioxide 28 (22-30) mmol/L BUN 25 H (7-17) mg/dL Creatinine 1.2 (0.7-1.2) mg/dL Glucose 123 H (65-100) mg/dL Calcium 9.3 (8.4-10.2) mg/dL Assessment and Plan Chronic angina Hx of CAD [facility] 06/01/2017 at [place]: 1. patent LAD stent. 2. s/p revascularization of the RCA using synergy drug eluting stents Hypertension Ischemic Cardiomyopathy
[2017-06-08] MEDS: LASIX PO SCH (11:06)
[2017-06-08] MEDS: IMDUR PO SCH (11:07)
[2017-06-08] MEDS: LOPRESSOR PO SCH ×2 (11:08→22:00)
[2017-06-08] MEDS: HALFPRIN EC PO SCH (11:08)
[2017-06-08] MEDS: RANEXA ER PO SCH ×2 (11:09→22:35)
[2017-06-08] MEDS: CYMBALTA PO SCH (11:10)
[2017-06-08] MEDS: COZAAR PO SCH (11:10)
[2017-06-08] MEDS: PLAVIX PO SCH (11:11)
--- NOTE | 2017-06-08 15:01 | Event Note ---
Date: 06/08/17 The patient underwent plasty and stenting of the chronic total occlusion of the right coronary artery one week ago at [facility]. The post intervention angiograms revealed an excellent angiographic result and taoism of LAYNE-3 flow. Since then, she has been fully compliant with her dual oral antiplatelet therapy of aspirin and Plavix. On this presentation, her chest pain is atypical, she mostly complained of some mild bilateral lower extremity edema. She appears comfortable in no distress. Most significantly, the ECG shows no changes suggestive of subacute stent thrombosis. There is normal sinus rhythm, with old inferior Q waves unchanged from her old EKG. No acute ST or T-wave abnormalities. There is no clinical or ECG evidence of subacute stent thrombosis, we will continue medical management of underlying coronary artery disease. The patient states that she feels fine and will be stable for discharge home tomorrow on medical management and close outpatient follow-up.
[2017-06-08] MEDS ORDERED: ATIVAN PO PRN ×2 (15:11→20:54)
[2017-06-08] MEDS ORDERED: NEURONTIN PO SCH (22:00)
[2017-06-09] MEDS: HEPARIN/ 0.45% NACL-25,000 UNIT/500 ML 25,000 UNIT/500 ML BAG IV SCH (01:40)
[2017-06-09 05:42] LABS: Hematocrit 33.1 % (30.3-42.9); Hemoglobin 10.7 gm/dl (10.1-14.3)
[2017-06-09 05:58] LABS: BUN/Creatinine Ratio 26; Blood Urea Nitrogen 23 mg/dL (7-17); Calcium 9.2 mg/dL (8.4-10.2); Hemolysis Index 27
[2017-06-09] MEDS: NITRO-BID 2% TP SCH (07:24)
[2017-06-09] MEDS ORDERED: HEPARIN 10,000 UNITS/10 ML IV ONE (07:44)
--- NOTE | 2017-06-09 09:37 | Progress Note ---
Assessment and Plan 1. Coronary artery disease status post PCI to the RCA one week ago 2. Ischemic cardiomyopathy (ventricular ejection fraction 55% [place] [employer] class II 3. Hyperlipidemia 4. Essential hypertension 5. Obesity Plan. Patient is currently stable scheduled for coronary angiography on Sunday to assess patency of the RCA stent given present presentation Subjective Date of service: 06/09/17 Interval history: No cardiac symptoms Objective Vital Signs Temp Pulse Pulse Resp Resp Resp BP 06/09/17 08:35 06/09/17 07:17 97.7 F 80 20 137/70 06/09/17 04:45 81 06/09/17 04:44 98.4 F 78 20 113/60 06/09/17 00:00 82 06/08/17 23:43 98.7 F 76 20 06/08/17 22:24 81 14 06/08/17 22:11 79 13 06/08/17 22:00 20 06/08/17 20:09 20 06/08/17 19:17 98.4 F 89 18 06/08/17 18:21 93/41 06/08/17 17:48 82 06/08/17 16:00 87 06/08/17 15:13 87 06/08/17 12:20 97.9 F 95 H 20 116/64 06/08/17 11:12 100 H 06/08/17 11:10 100 H 06/08/17 11:08 100 H 06/08/17 11:07 100 H 06/08/17 09:57 06/08/17 09:54 BP Pulse Ox 06/09/17 08:35 95 06/09/17 07:17 95 06/09/17 04:45 96 06/09/17 04:44 96 06/09/17 00:00 06/08/17 23:43 110/58 95 06/08/17 22:24 06/08/17 22:11 06/08/17 22:00 06/08/17 20:09 06/08/17 19:17 107/45 91 06/08/17 18:21 06/08/17 17:48 93/41 06/08/17 16:00 06/08/17 15:13 06/08/17 12:20 91 06/08/17 11:12 06/08/17 11:10 06/08/17 11:08 06/08/17 11:07 06/08/17 09:57 96 06/08/17 09:54 96 - Physical Examination General: Appears Well HEENT: Positive: PERRL, Normocephaly, Mucus Membranes Moist Neck: Positive: neck supple, trachea midline. Negative: JVD/HJR Cardiac: Positive: Regular Rate, S1/S2, PMI, Laterally Displaced Lungs: Positive: clear to auscultation Neuro: Positive: Grossly Intact Abdomen: Positive: Unremarkable, Soft Extremities: Absent: edema - Labs and Meds CBC 06/09/17 Range/Units 04:46 Hgb 10.7 (10.1-14.3) gm/dl Hct 33.1 (30.3-42.9) % Plt Count 287 (140-440) K/mm3 Comprehensive Metabolic Panel 06/09/17 Range/Units 04:46 Sodium 136 L (137-145) mmol/L Potassium 4.1 (3.6-5.0) mmol/L Chloride 94.9 L (98-107) mmol/L Carbon Dioxide 26 (22-30) mmol/L BUN 23 H (7-17) mg/dL Creatinine 0.9 (0.7-1.2) mg/dL Glucose 168 H (65-100) mg/dL Calcium 9.2 (8.4-10.2) mg/dL
[2017-06-09] MEDS: LASIX PO SCH (10:34)
[2017-06-09] MEDS: PLAVIX PO SCH (10:34)
[2017-06-09] MEDS: HALFPRIN EC PO SCH (10:34)
[2017-06-09] MEDS: IMDUR PO SCH (10:34)
[2017-06-09] MEDS: LOPRESSOR PO SCH (10:34)
[2017-06-09] MEDS: RANEXA ER PO SCH (10:34)
[2017-06-09] MEDS: CYMBALTA PO SCH (10:35)
[2017-06-09] MEDS: COZAAR PO SCH (10:35)
[2017-06-09 10:37] VITALS: BP 137/72
--- NOTE | 2017-06-09 13:09 | Discharge Summary ---
Providers - Providers Date of Admission: 06/07/17 22:47 Date of discharge: 06/09/17 Attending physician: THAI ELLIS 06/08/17 05:57 Consult to Physician [CONS] Routine Comment: Consulting Provider: HUGH MCCABE Physician Instructions: Reason For Exam: NSTEMI Primary care physician: DAVID TAVERAS MD Hospitalization Reason for admission: chest pain Condition: Stable Pertinent studies: Chest x-ray no acute abnormality Hospital course: Very pleasant 66-year-old obese female patient was admitted through emergency room with chest pain patient recently had heart catheterization, status post stent placement one week ago, patient was symptomatically managed Evaluated by golf club assembler, old records reviewed No further cardiac intervention was recommended Patient's medications resumed, symptoms significantly improved Today patient is comfortable, denies chest pain shortness of breath Vital signs stable, ambulatory and tolerating oral nutrition Physical examination prior to discharge is unremarkable Clear by cardiology for discharge and follow-up with private golf club assembler Advised to continue all her home medications as before Patient is stable at the time of discharge Discharge diagnosis; --History of coronary artery disease status post PCI[1 week ago and [facility]] --Dyslipidemia; stable on lipid lowering medications --Ischemic cardiomyopathy; LVEF is 35% --Chronic systolic congestive heart failure; stable --Morbid obesity; BMI 42.6, counseling done Disposition: DC-01 TO HOME OR SELFCARE Time spent for discharge: 32 min Core Measure Documentation - Palliative Care Palliative Care/ Comfort Measures: Not Applicable - Core Measures Any of the following diagnoses?: heart failure - Heart Failure Discharge Requirements LILIAN/ARB for LVSD if EF <40%: Yes Beta juan at discharge: Yes Exam - Constitutional Vitals: Temp Pulse Resp BP Pulse Ox 97.7 F 78 20 137/72 95 06/09/17 07:17 06/09/17 10:34 06/09/17 07:17 06/09/17 10:35 06/09/17 08:35 General appearance: Present: no acute distress, well-nourished, obese - EENT Eyes: Present: PERRL, EOM intact - Neck Neck: Present: supple, normal ROM - Respiratory Respiratory effort: normal Respiratory: negative: rales, rhonchi, wheezing - Cardiovascular Rhythm: regular Heart Sounds: Present: S1 & S2 - Extremities Extremities: no ischemia, No edema - Abdominal General gastrointestinal: Present: soft, non-tender, non-distended, normal bowel sounds - Integumentary Integumentary: Present: clear, warm - Musculoskeletal Musculoskeletal: strength equal bilaterally - Psychiatric Psychiatric: appropriate mood/affect, cooperative - Neurologic Neurologic: CNII-XII intact, moves all extremities Plan Activity: no restrictions Diet: other (cardiac diet) Additional Instructions: If you have chest pain or shortness of breath, contact M.D. or go to emergency room Follow up with: DAVID TAVERAS MD [Primary Care Provider] - 7 Days CHUCKY CLARK MD [Staff Physician] - 7 Days
== END 2017-06-09 14:54 | disposition home or self-care (01) | DRG 280 ==
LOC: ED 18:26 → 4A 22:47
PROVIDERS: ADMIT Internal Medicine; ATTEND Internal Medicine
DX: I21.4 Non-ST elevation (NSTEMI) myocardial infarction (principal); I50.23 Acute on chronic systolic (congestive) heart failure; J44.1 Chronic obstructive pulmonary disease with (acute) exacerbation; Z68.41 Body mass index [BMI] 40.0-44.9, adult; E78.5 Hyperlipidemia, unspecified; I25.5 Ischemic cardiomyopathy; E66.01 Morbid (severe) obesity due to excess calories; I11.0 Hypertensive heart disease with heart failure; M19.90 Unspecified osteoarthritis, unspecified site; I25.110 Atherosclerotic heart disease of native coronary artery with unstable angina pectoris; Z95.5 Presence of coronary angioplasty implant and graft; Z79.899 Other long term (current) drug therapy
CPT/HCPCS: 36415; 71045; 80048; 80061; 82550; 82553; 82962; 84484; 85014; 85018; 85025; 85049; 85520; 85610; 85730; 93005; 93010; 94640; 96365; 96375; 96376; A9270-GY; J1644; J1940; J2270; J2920

== ENCOUNTER 2017-06-17 10:51 | Inpatient (IN) | payer MEDICARE ==
[2017-06-17] MEDS ORDERED: ASPIRIN PO ONE (11:30)
[2017-06-17 11:43] LABS: Basophils % (Auto) 0.4 % (0.0-1.8); Eosinophils # (Auto) 0.2 K/mm3 (0.0-0.4); Eosinophils % (Auto) 2.5 % (0.0-4.3); Hematocrit 35.3 % (30.3-42.9); Hemoglobin 11.9 gm/dl (10.1-14.3); Lymphocytes # (Auto) 1.6 K/mm3 (1.2-5.4); Lymphocytes % (Auto) 17.1 % (13.4-35.0); Mean Corpuscular HGB Conc 34 % (30-34); Mean Corpuscular Hemoglobin 30 pg (28-32); Mean Corpuscular Volume 88 fl (79-97); Monocytes # (Auto) 0.7 K/mm3 (0.0-0.8); Monocytes % (Auto) 7.4 % (0.0-7.3); Platelet Count 233 K/mm3 (140-440)
[2017-06-17] MEDS ORDERED: ZOFRAN IV ONE (11:50)
[2017-06-17] MEDS ORDERED: NACL 0.9% 1000 ML 1,000 ML IV ONE (11:50)
--- NOTE | 2017-06-17 11:55 | Emergency Department Report ---
ED General Adult HPI - General Chief complaint: Neck Pain/Injury Stated complaint: CHEST PAIN Time Seen by Provider: 06/17/17 11:44 Source: patient, EMS Mode of arrival: Stretcher Limitations: No Limitations - History of Present Illness Initial comments: Patient is 66 years old female history of coronary artery disease with multiple stents, congestive heart failure and hypertension and arthritis. Patient presented to the ER complaining of neck pain and nausea and vomiting. Patient stated that her neck pain started yesterday and this is similar to when she had her first heart attack 3 years ago. She stated that she woke up this morning with nausea and vomiting. Patient is actively vomiting in the ER. She denied any chest pain at this moment, abdominal pain or diarrhea. No cough or urinary symptoms. - Related Data Home Medications Medication Instructions Recorded Confirmed Last Taken Metoprolol [Lopressor TAB] 50 mg PO BID 10/26/16 06/08/17 2 Days Ago ~06/06/17 Furosemide [Lasix] 20 mg PO DAILY 02/28/17 06/08/17 2 Days Ago ~06/06/17 Celecoxib [Celebrex] 100 mg PO BID 05/18/17 06/08/17 2 Days Ago ~06/06/17 Duloxetine HCl [Cymbalta] 30 mg PO QDAY 05/18/17 06/08/17 2 Days Ago ~06/06/17 Gabapentin [Neurontin] 300 mg PO HS 05/18/17 06/08/17 2 Days Ago ~06/06/17 ISOSORBIDE MONOnitrate [Imdur ER] 60 mg PO QDAY 05/18/17 06/08/17 2 Days Ago ~06/06/17 Previous Rx's Medication Instructions Recorded Last Taken Type Losartan [Cozaar] 50 mg PO QDAY #30 tablet 12/30/15 2 Days Ago Rx ~06/06/17 Aspirin EC [Aspirin Enteric Coated 81 mg PO DAILY #30 tablet 03/01/17 2 Days Ago Rx TAB] ~06/06/17 AtorvaSTATin [Lipitor] 40 mg PO QHS #30 tablet 03/01/17 2 Days Ago Rx ~06/06/17 Clopidogrel [Plavix] 75 mg PO DAILY #30 tablet 03/01/17 2 Days Ago Rx ~06/06/17 Ranolazine ER [Ranexa ER] 1,000 mg PO BID #60 day 03/01/17 2 Days Ago Rx ~06/06/17 Allergies Allergy/AdvReac Type Severity Reaction Status Date / Time No Known Allergies Allergy Unverified 06/17/17 11:29 ED Review of Systems ROS: Stated complaint: CHEST PAIN Other details as noted in HPI Comment: All other systems reviewed and negative Constitutional: denies: chills, fever Respiratory: denies: cough, orthopnea, shortness of breath, SOB with exertion, SOB at rest Cardiovascular: denies: chest pain, palpitations, dyspnea on exertion, orthopnea Gastrointestinal: nausea, vomiting. denies: abdominal pain, diarrhea, constipation, hematemesis, melena, hematochezia Musculoskeletal: denies: back pain Neurological: denies: headache, weakness, numbness, paresthesias, confusion, abnormal gait, vertigo ED Past Medical Hx - Past Medical History Previous Medical History?: Yes Hx Hypertension: Yes Hx Heart Attack/AMI: Yes Hx Congestive Heart Failure: Yes Hx Arthritis: Yes - Surgical History Past Surgical History?: Yes Hx Coronary Stent: Yes Additional Surgical History: cardiac stents - Social History Smoking Status: Current Every Day Smoker Substance Use Type: None - Medications Home Medications: Home Medications Medication Instructions Recorded Confirmed Last Taken Type Losartan [Cozaar] 50 mg PO QDAY #30 tablet 12/30/15 06/08/17 2 Days Ago Rx ~06/06/17 Metoprolol [Lopressor TAB] 50 mg PO BID 10/26/16 06/08/17 2 Days Ago History ~06/06/17 Furosemide [Lasix] 20 mg PO DAILY 02/28/17 06/08/17 2 Days Ago History ~06/06/17 Aspirin EC [Aspirin Enteric Coated 81 mg PO DAILY #30 tablet 03/01/17 06/08/17 2 Days Ago Rx TAB] ~06/06/17 AtorvaSTATin [Lipitor] 40 mg PO QHS #30 tablet 03/01/17 06/08/17 2 Days Ago Rx ~06/06/17 Clopidogrel [Plavix] 75 mg PO DAILY #30 tablet 03/01/17 06/08/17 2 Days Ago Rx ~06/06/17 Ranolazine ER [Ranexa ER] 1,000 mg PO BID #60 day 03/01/17 06/08/17 2 Days Ago Rx ~06/06/17 Celecoxib [Celebrex] 100 mg PO BID 05/18/17 06/08/17 2 Days Ago History ~06/06/17 Duloxetine HCl [Cymbalta] 30 mg PO QDAY 05/18/17 06/08/17 2 Days Ago History ~06/06/17 Gabapentin [Neurontin] 300 mg PO HS 05/18/17 06/08/17 2 Days Ago History ~06/06/17 ISOSORBIDE MONOnitrate [Imdur ER] 60 mg PO QDAY 05/18/17 06/08/17 2 Days Ago History ~06/06/17 ED Physical Exam - General Limitations: No Limitations General appearance: alert, in no apparent distress, other (actively vomiting) - Head Head exam: Present: atraumatic, normocephalic, normal inspection - Eye Eye exam: Present: normal appearance, PERRL - ENT ENT exam: Present: normal exam, normal orophraynx, mucous membranes moist - Neck Neck exam: Present: normal inspection, full ROM. Absent: tenderness, meningismus, lymphadenopathy, thyromegaly - Respiratory Respiratory exam: Present: normal lung sounds bilaterally. Absent: respiratory distress, wheezes, rales, rhonchi, stridor, chest wall tenderness, accessory muscle use, decreased breath sounds, prolonged expiratory - Cardiovascular Cardiovascular Exam: Present: regular rate, bradycardia - GI/Abdominal GI/Abdominal exam: Present: soft, normal bowel sounds. Absent: distended, tenderness, guarding, rebound, rigid, organomegaly, mass, bruit, pulsatile mass , hernia - Extremities Exam Extremities exam: Present: normal inspection, full ROM, normal capillary refill. Absent: tenderness, pedal edema, joint swelling, calf tenderness - Back Exam Back exam: Present: normal inspection, full ROM. Absent: tenderness, CVA tenderness (R), CVA tenderness (L), muscle spasm, paraspinal tenderness, vertebral tenderness, rash noted - Neurological Exam Neurological exam: Present: alert, oriented X3, CN II-XII intact, normal gait - Skin Skin exam: Present: warm, intact, normal color ED Course Vital Signs 06/17/17 06/17/17 06/17/17 11:15 11:19 11:30 Temperature 97.9 F Pulse Rate 53 L 55 L 55 L Respiratory 15 16 11 L Rate Blood Pressure 75/36 71/40 75/36 O2 Sat by Pulse 97 96 99 Oximetry 06/17/17 06/17/17 06/17/17 11:45 12:08 12:15 Temperature Pulse Rate 56 L 54 L 53 L Respiratory 14 14 17 Rate Blood Pressure 80/35 80/35 78/42 O2 Sat by Pulse 99 98 96 Oximetry 06/17/17 06/17/17 06/17/17 12:30 12:46 13:00 Temperature Pulse Rate 54 L 55 L 56 L Respiratory 14 13 14 Rate Blood Pressure 82/46 80/35 80/35 O2 Sat by Pulse 98 99 100 Oximetry ED Medical Decision Making - Lab Data Result diagrams: 06/17/17 11:33 06/17/17 11:33 - EKG Data -: EKG Interpreted by Me EKG shows normal: sinus rhythm - EKG Data Interpretation: no acute changes - Radiology Data Radiology results: report reviewed CT cervical spine is negative for acute finding. - Medical Decision Making I discussed the patient with Dr Alcala, he agreed to admit to his service. Critical care attestation.: If time is entered above; I have spent that time in minutes in the direct care of this critically ill patient, excluding procedure time. ED Disposition Clinical Impression: Acute renal failure, Vomiting, Hypotension, Neck pain Disposition: DC-09 OP ADMIT IP TO THIS HOSP Is pt being admited?: Yes Condition: Stable Referrals: PRIMARY CARE, [Primary Care Provider] - 3-5 Days
[2017-06-17 12:05] LABS: Calcium 8.9 mg/dL (8.4-10.2)
--- NOTE | 2017-06-17 12:19 | Cat Scan Report ---
CT SCAN OF THE CERVICAL SPINE: HISTORY: Neck pain. TECHNIQUE: Contiguous 1.25 mm axial images of the cervical spine were obtained. Sagittal and coronal reformatted images. FINDINGS: There is normal alignment of the cervical spine. The body, pedicles and posterior ligaments are intact. No evidence of fracture or subluxation is seen. The spinal canal appears normal. Mild diffuse facet arthropathy and early degenerative disc disease at C4-5 and C5-6 are noted. The prevertebral soft tissues appear normal. IMPRESSION: Mild cervical spondylosis. No acute process is noted.
--- NOTE | 2017-06-17 13:22 | XRay Report ---
AP CHEST: HISTORY: chest pain AP view of the chest demonstrates a normal mediastinal and cardiac contour with clear lungs and normal bony and soft tissue structures. IMPRESSION: Unremarkable AP chest. No change since 06/07/17.
--- NOTE | 2017-06-17 13:36 | History and Physical Report ---
History of Present Illness Chief complaint: MY neck, and back hurts History of present illness: 66 YO Female with CAD S/P Stent Placement, SC, HTN, CHF, Nicotine Dependence, OA , Obesity presents to ED for evaluation. Pt states that she has experienced pain in her neck, and back for the past 2 days with worsening symptoms over the past 1 day. Pt states that she also experienced naussea, and three episodes of vomiting. Pt states that she experienced similar symptoms the last time she had a heart attack. Pt denies fever, chills, palpitations, diaphoresis, shortness of breath, BRBPR, productive cough, trauma, or recent ill contacts. Pt seen an evaluated in ED and found to have Acute Renal Failure and evidence of CHF and sinus bradycardia. Cardiology consulted in ED. Atropine sonography technician at patient bedside. Past History Past Medical History: acute SC, CAD, heart failure, hypertension Past Surgical History: Other (Stent placement) Social history: , lives with family Family history: hypertension Medications and Allergies Allergies Allergy/AdvReac Type Severity Reaction Status Date / Time No Known Allergies Allergy Unverified 06/17/17 11:29 Home Medications Medication Instructions Recorded Confirmed Last Taken Type Losartan [Cozaar] 50 mg PO QDAY #30 tablet 12/30/15 06/17/17 2 Days Ago Rx ~06/06/17 Metoprolol [Lopressor TAB] 50 mg PO BID 10/26/16 06/17/17 2 Days Ago History ~06/06/17 Furosemide [Lasix] 40 mg PO DAILY 02/28/17 06/17/17 2 Days Ago History ~06/06/17 Aspirin EC [Aspirin Enteric Coated 81 mg PO DAILY #30 tablet 03/01/17 06/17/17 2 Days Ago Rx TAB] ~06/06/17 AtorvaSTATin [Lipitor] 40 mg PO QHS #30 tablet 03/01/17 06/17/17 2 Days Ago Rx ~06/06/17 Clopidogrel [Plavix] 75 mg PO DAILY #30 tablet 03/01/17 06/17/17 2 Days Ago Rx ~06/06/17 Ranolazine ER [Ranexa ER] 1,000 mg PO BID #60 day 03/01/17 06/17/17 2 Days Ago Rx ~06/06/17 Duloxetine HCl [Cymbalta] 60 mg PO QDAY 05/18/17 06/17/17 2 Days Ago History ~06/06/17 Gabapentin [Neurontin] 300 mg PO HS 05/18/17 06/17/17 2 Days Ago History ~06/06/17 ISOSORBIDE MONOnitrate [Imdur ER] 60 mg PO QDAY 05/18/17 06/17/17 2 Days Ago History ~06/06/17 HYDROcodone/APAP 7.5-325 [[place] 1 tab PO BID 06/17/17 06/17/17 Unknown History 7.5-325 mg TAB] LORazepam [Ativan] 1 mg PO DAILY PRN 06/17/17 06/17/17 Unknown History Metolazone 5 mg PO DAILY 06/17/17 06/17/17 Unknown History Nitroglycerin [Nitrostat] 0.4 mg SL Q5M PRN 06/17/17 06/17/17 Unknown History Pantoprazole [Protonix] 40 mg PO QDAY 06/17/17 06/17/17 Unknown History Potassium Chloride 10 meq PO DAILY 06/17/17 06/17/17 Unknown History Review of Systems Constitutional: no weight loss, no weight gain, no fever, no chills Ears, nose, mouth and throat: pain front of neck, no ear pain, no ear discharge , no tinnitis, no decreased hearing, no nose pain Breasts: no change in shape, no swelling, no mass Cardiovascular: no chest pain, no orthopnea, no palpitations, no rapid/ irregular heart beat, no edema, no syncope, no lightheadedness Respiratory: no cough, no cough with sputum, no excessive sputum, no hemoptysis , no shortness of breath Gastrointestinal: no nausea, no vomiting, no diarrhea, no constipation Genitourinary Female: no pelvic pain, no flank pain, no menorrhagia, no dysuria , no urinary frequency Rectal: no pain, no incontinence, no bleeding Musculoskeletal: neck pain, no neck stiffness, no shooting arm pain, no arm numbness/tingling, no shooting leg pain, no redness of joints, no hot joints, no morning stiffness Integumentary: no rash, no pruritis, no redness, no sores, no wounds, no jaundice, no boils Neurological: no head injury, no transient paralysis, no paralysis, no weakness , no parathesias, no numbness, no tingling, no seizures, no syncope Psychiatric: no anxiety, no memory loss, no change in sleep habits, no insomnia , no hypersomnia, no change in appetite, no change in libido, no suicidal ideation Endocrine: no cold intolerance, no heat intolerance, no polyphagia, no excessive sweating, no flushing Hematologic/Lymphatic: no easy bruising, no lymphadenopathy, no lymphedema Allergic/Immunologic: no urticaria, no allergic rhinitis, no wheezing, no anaphylaxis, no angioedema Exam - Constitutional Vitals: Temp Pulse Resp BP Pulse Ox 97.9 F 56 L 14 80/35 100 06/17/17 11:19 06/17/17 13:00 06/17/17 13:00 06/17/17 13:00 06/17/17 13:00 General appearance: Present: mild distress, obese - EENT Eyes: Present: PERRL ENT: hearing intact, clear oral mucosa - Neck Neck: Present: supple, normal ROM - Respiratory Respiratory effort: normal Respiratory: bilateral: CTA - Cardiovascular Heart Sounds: Present: S1 & S2. Absent: rub, click - Extremities Extremities: pulses symmetrical, No edema Peripheral Pulses: within normal limits - Abdominal General gastrointestinal: Present: soft, non-tender, non-distended, normal bowel sounds Female genitourinary: Present: normal - Integumentary Integumentary: Present: clear, warm, dry - Musculoskeletal Musculoskeletal: gait normal, strength equal bilaterally - Psychiatric Psychiatric: appropriate mood/affect, intact judgment & insight - Neurologic Neurologic: CNII-XII intact, moves all extremities Results - Labs CBC & Chem 7: 06/17/17 11:33 06/17/17 11:33 Labs: Abnormal lab results 06/17/17 06/17/17 Range/Units 11:33 11:33 [place] % (Auto) 7.4 H (0.0-7.3) % Seg Neutrophils % 72.6 H (40.0-70.0) % Sodium 132 L (137-145) mmol/L Chloride 89.8 L (98-107) mmol/L BUN 33 H (7-17) mg/dL Creatinine 2.1 H (0.7-1.2) mg/dL Glucose 126 H (65-100) mg/dL Assessment and Plan - Patient Problems (1) Acute exacerbation of CHF (congestive heart failure) Current Visit: No Status: Acute Qualifiers: Heart failure type: systolic Qualified Code(s): I50.23 - Acute on chronic systolic (congestive) heart failure Plan to address problem: Cardiology consulted in ED, Admit to telemetry, Strict I/O, Daily weight, diuresis, afterload reduction, supplemental oxygen, (2) Nicotine dependence with withdrawal Current Visit: Yes Status: Acute Qualifiers: Nicotine product type: cigarettes Qualified Code(s): F17.213 - Nicotine dependence, cigarettes, with withdrawal Plan to address problem: supportive care. (3) Acute renal failure Current Visit: Yes Status: Acute Qualifiers: Acute renal failure type: with acute tubular necrosis Qualified Code(s): N17.0 - Acute kidney failure with tubular necrosis Plan to address problem: monitor uop q shift, urine electrolytes, monitor serum creatnine, (4) Acute coronary syndrome Current Visit: No Status: Acute Plan to address problem: serial cardiac enzymes, ekg,telemetry, morphine, supplemental oxygen, nitro, aspirin, (5) DVT prophylaxis Current Visit: No Status: Acute Plan to address problem: scd to ble while in bed
[2017-06-17] MEDS ORDERED: TYLENOL PO PRN (13:51)
[2017-06-17] MEDS ORDERED: SODIUM CHLORIDE FLUSH SYRINGE 10 ML IV PRN ×2 (13:51→16:41)
[2017-06-17] MEDS ORDERED: ZOFRAN IV PRN (13:51)
[2017-06-17] MEDS ORDERED: PROVENTIL IH PRN (13:51)
[2017-06-17] MEDS ORDERED: ATROPINE IV ONE ×2 (13:53→15:20)
[2017-06-17] MEDS ORDERED: ATROPINE IV NR (15:18)
[2017-06-17] MEDS ORDERED: NITROSTAT SL PRN (16:41)
[2017-06-17] MEDS: NORCO 7.5/325 PO SCH ×2 (17:17→22:44)
[2017-06-17] MEDS: CYMBALTA PO SCH (17:17)
[2017-06-17] MEDS: LASIX IV SCH (17:18)
[2017-06-17] MEDS: PROTONIX PO SCH (17:18)
[2017-06-17] MEDS: IMDUR PO SCH (17:18)
[2017-06-17] MEDS: COZAAR PO SCH (17:20)
[2017-06-17] MEDS: RANEXA ER PO SCH ×2 (20:22→22:51)
[2017-06-17] MEDS: ATIVAN PO PRN (20:26)
[2017-06-17] MEDS: NEURONTIN PO SCH ×2 (20:26→22:50)
[2017-06-17 21:39] LABS: Basophils # (Auto) 0.1 K/mm3 (0.0-0.1); Basophils % (Auto) 0.8 % (0.0-1.8); Eosinophils # (Auto) 0.2 K/mm3 (0.0-0.4); Eosinophils % (Auto) 2.4 % (0.0-4.3); Hematocrit 34.6 % (30.3-42.9); Hemoglobin 11.4 gm/dl (10.1-14.3); Lymphocytes # (Auto) 2.1 K/mm3 (1.2-5.4); Lymphocytes % (Auto) 24.7 % (13.4-35.0); Mean Corpuscular HGB Conc 33 % (30-34); Mean Corpuscular Hemoglobin 29 pg (28-32); Mean Corpuscular Volume 88 fl (79-97); Monocytes # (Auto) 0.7 K/mm3 (0.0-0.8); Monocytes % (Auto) 8.5 % (0.0-7.3); Platelet Count 231 K/mm3 (140-440); Red Blood Count 3.93 M/mm3 (3.65-5.03)
[2017-06-17 22:01] LABS: Calcium 8.7 mg/dL (8.4-10.2)
[2017-06-17] MEDS: LOPRESSOR PO SCH (22:50)
[2017-06-17] MEDS: SODIUM CHLORIDE FLUSH SYRINGE 10 ML IV SCH (22:52)
[2017-06-18] MEDS: LASIX IV SCH (07:44)
--- NOTE | 2017-06-18 08:58 | Progress Note ---
Assessment and Plan 1) Acute exacerbation of CHF (congestive heart failure) Current Visit: No Status: Acute Qualifiers: Heart failure type: systolic Qualified Code(s): I50.23 - Acute on chronic systolic (congestive) heart failure Plan to address problem: Cardiology consulted in ED, Admit to telemetry, Strict I/O, Daily weight, diuresis, afterload reduction, supplemental oxygen, LVEF 35 % as at 03/01 (2) Nicotine dependence with withdrawal Current Visit: Yes Status: Acute Qualifiers: Nicotine product type: cigarettes Qualified Code(s): F17.213 - Nicotine dependence, cigarettes, with withdrawal Plan to address problem: supportive care. (3) Acute renal failure Current Visit: Yes Status: Acute Qualifiers: Acute renal failure type: with acute tubular necrosis Qualified Code(s): N17.0 - Acute kidney failure with tubular necrosis Plan to address problem: Ranl US Nephrology consult monitor uop q shift, urine electrolytes, monitor serum creatnine, (4) Acute coronary syndrome Current Visit: No Status: Acute Plan to address problem: S/p Cath 03/01 with patent Coronaries serial cardiac enzymes, ekg,telemetry, morphine, supplemental oxygen, nitro, aspirin, (5) DVT prophylaxis Current Visit: No Status: Acute Plan to address problem: scd to ble while in bed Subjective Date of service: 06/18/17 Principal diagnosis: Systolic heart failure exercebation Interval history: Pt seen and examied. Still short of breath. Objective - Constitutional Vitals: Vital Signs - 12hr 06/17/17 06/17/17 06/17/17 21:09 21:10 23:11 Temperature 97.6 F 97.6 F 97.5 F L Pulse Rate 67 66 68 Respiratory 20 20 18 Rate Blood Pressure 109/52 Blood Pressure 75/37 75/37 [Left] Blood Pressure 85/45 [Right] O2 Sat by Pulse 90 92 90 Oximetry 06/17/17 06/17/17 06/18/17 23:12 23:51 04:47 Temperature 98.0 F Pulse Rate 68 66 71 Respiratory 20 Rate Blood Pressure Blood Pressure [Left] Blood Pressure 125/66 [Right] O2 Sat by Pulse 91 96 Oximetry 06/18/17 07:30 Temperature 98.4 F Pulse Rate 63 Respiratory 20 Rate Blood Pressure 113/57 Blood Pressure [Left] Blood Pressure [Right] O2 Sat by Pulse 94 Oximetry General appearance: Present: no acute distress, well-nourished - EENT Eyes: PERRL, EOM intact - Neck Neck: supple, normal ROM - Respiratory Respiratory effort: normal Respiratory: bilateral: diminished - Cardiovascular Rhythm: regular Heart Sounds: Present: S1 & S2. Absent: gallop, rub Extremities: pulses intact, No edema, normal color, Full ROM - Gastrointestinal General gastrointestinal: Present: soft, non-tender, non-distended, normal bowel sounds - Genitourinary Female genitourinary: normal - Integumentary Integumentary: clear, warm, dry - Musculoskeletal Musculoskeletal: 1, strength equal bilaterally - Neurologic Neurologic: moves all extremities - Psychiatric Psychiatric: memory intact, appropriate mood/affect, intact judgment & insight - Labs CBC & Chem 7: 06/17/17 21:16 06/17/17 21:16 Labs: Abnormal lab results 06/17/17 06/17/17 06/17/17 Range/Units 11:33 11:33 21:16 [place] % (Auto) 7.4 H 8.5 H (0.0-7.3) % Seg Neutrophils % 72.6 H (40.0-70.0) % Sodium 132 L (137-145) mmol/L Chloride 89.8 L (98-107) mmol/L BUN 33 H (7-17) mg/dL Creatinine 2.1 H (0.7-1.2) mg/dL Glucose 126 H (65-100) mg/dL 06/17/17 Range/Units 21:16 [place] % (Auto) (0.0-7.3) % Seg Neutrophils % (40.0-70.0) % Sodium 133 L (137-145) mmol/L Chloride 89.7 L (98-107) mmol/L BUN 36 H (7-17) mg/dL Creatinine 2.5 H (0.7-1.2) mg/dL Glucose 111 H (65-100) mg/dL
[2017-06-18] MEDS ORDERED: ZAROXOLYN PO SCH (10:00)
[2017-06-18] MEDS ORDERED: K-DUR PO SCH (10:00)
[2017-06-18] MEDS: CYMBALTA PO SCH (10:41)
[2017-06-18] MEDS: IMDUR PO SCH (10:41)
[2017-06-18] MEDS: PLAVIX PO SCH (10:41)
[2017-06-18] MEDS: ECOTRIN PO SCH (10:41)
[2017-06-18] MEDS: RANEXA ER PO SCH ×2 (10:41→21:45)
[2017-06-18] MEDS: PROTONIX PO SCH (10:41)
[2017-06-18] MEDS: COZAAR PO SCH (10:43)
[2017-06-18] MEDS: LOPRESSOR PO SCH ×2 (10:44→21:45)
[2017-06-18] MEDS: NORCO 7.5/325 PO SCH ×2 (10:51→21:45)
--- NOTE | 2017-06-18 11:09 | Consultation ---
History of Present Illness Consult date: 06/18/17 Consult reason: congestive heart failure History of present illness: This is a 66yr old woman with a history of coronary artery disease and ischemic cardiomyopathy. Patient underwent angioplasty and stenting of the chronic total occlusion of the right coronary artery 3 weeks ago at [facility]. Since then, she has been fully compliant with her dual oral antiplatelet therapy of aspirin and Plavix. Patient presented with complaints of right sided neck pain associated with nausea vomiting. A cardiac consultation is requested for CHF. Patient has no chest pain or shortness of breath. There is no lower extremity edema. She has a negative chest xray. ECG is normal sinus rhythm, with old inferior Q waves unchanged from her old EKG. No acute ST or T-wave abnormalities. Past History Past Medical History: CAD, heart failure, hypertension Social history: , lives with family Family history: hypertension Medications and Allergies Allergies Allergy/AdvReac Type Severity Reaction Status Date / Time No Known Allergies Allergy Unverified 06/17/17 11:29 Home Medications Medication Instructions Recorded Confirmed Last Taken Type Losartan [Cozaar] 50 mg PO QDAY #30 tablet 12/30/15 06/17/17 2 Days Ago Rx ~06/06/17 Metoprolol [Lopressor TAB] 50 mg PO BID 10/26/16 06/17/17 2 Days Ago History ~06/06/17 Furosemide [Lasix] 40 mg PO DAILY 02/28/17 06/17/17 2 Days Ago History ~06/06/17 Aspirin EC [Aspirin Enteric Coated 81 mg PO DAILY #30 tablet 03/01/17 06/17/17 2 Days Ago Rx TAB] ~06/06/17 AtorvaSTATin [Lipitor] 40 mg PO QHS #30 tablet 03/01/17 06/17/17 2 Days Ago Rx ~06/06/17 Clopidogrel [Plavix] 75 mg PO DAILY #30 tablet 03/01/17 06/17/17 2 Days Ago Rx ~06/06/17 Ranolazine ER [Ranexa ER] 1,000 mg PO BID #60 day 03/01/17 06/17/17 2 Days Ago Rx ~06/06/17 Duloxetine HCl [Cymbalta] 60 mg PO QDAY 05/18/17 06/17/17 2 Days Ago History ~06/06/17 Gabapentin [Neurontin] 300 mg PO HS 05/18/17 06/17/17 2 Days Ago History ~06/06/17 ISOSORBIDE MONOnitrate [Imdur ER] 60 mg PO QDAY 05/18/17 06/17/17 2 Days Ago History ~06/06/17 HYDROcodone/APAP 7.5-325 [[place] 1 tab PO BID 06/17/17 06/17/17 Unknown History 7.5-325 mg TAB] LORazepam [Ativan] 1 mg PO DAILY PRN 06/17/17 06/17/17 Unknown History Metolazone 5 mg PO DAILY 06/17/17 06/17/17 Unknown History Nitroglycerin [Nitrostat] 0.4 mg SL Q5M PRN 06/17/17 06/17/17 Unknown History Pantoprazole [Protonix] 40 mg PO QDAY 06/17/17 06/17/17 Unknown History Potassium Chloride 10 meq PO DAILY 06/17/17 06/17/17 Unknown History Active Meds: Active Medications Acetaminophen (Tylenol) 650 mg PO Q4H PRN PRN Reason: Pain MILD(1-3)/Fever >100.5/AVENDANO Last Admin: 06/17/17 20:26 Dose: 650 mg Acetaminophen/Hydrocodone Bitart ([place] 7.5/325) 1 each PO BID [facility] Last Admin: 06/18/17 10:51 Dose: Not Given Albuterol (Proventil) 2.5 mg IH Q4HRT PRN PRN Reason: Shortness Of Breath Aspirin (Ecotrin) 325 mg PO QDAY [facility] Last Admin: 06/18/17 10:41 Dose: 325 mg Atorvastatin Calcium (Lipitor) 40 mg PO QHS [facility] Last Admin: 06/17/17 22:53 Dose: Not Given Clopidogrel Bisulfate (Plavix) 75 mg PO DAILY [facility] Last Admin: 06/18/17 10:41 Dose: 75 mg Duloxetine HCl (Cymbalta) 60 mg PO QDAY [facility] Last Admin: 06/18/17 10:41 Dose: 60 mg Furosemide (Lasix) 20 mg IV 0600,1800 [facility] Last Admin: 06/18/17 07:44 Dose: 20 mg Gabapentin (Neurontin) 300 mg PO [facility] Last Admin: 06/17/17 22:50 Dose: Not Given Isosorbide Mononitrate (Imdur) 60 mg PO QDAY [facility] Last Admin: 06/18/17 10:41 Dose: 60 mg Lorazepam (Ativan) 1 mg PO DAILY PRN PRN Reason: Anxiety Last Admin: 06/17/17 20:26 Dose: 1 mg Losartan Potassium (Cozaar) 50 mg PO QDAY [facility] Last Admin: 06/18/17 10:43 Dose: Not Given Metolazone (Zaroxolyn) 5 mg PO DAILY [facility] Last Admin: 06/18/17 10:41 Dose: 5 mg Metoprolol Tartrate (Lopressor) 50 mg PO BID [facility] Last Admin: 06/18/17 10:44 Dose: 50 mg Nitroglycerin (Nitrostat) 0.4 mg SL Q5M PRN PRN Reason: Chest Pain Ondansetron HCl (Zofran) 4 mg IV Q8H PRN PRN Reason: Nausea And Vomiting Pantoprazole Sodium (Protonix) 40 mg PO QDAY [facility] Last Admin: 06/18/17 10:41 Dose: 40 mg Potassium Chloride (K-Dur) 10 meq PO QDAY [facility] Last Admin: 06/18/17 10:41 Dose: 10 meq Ranolazine (Ranexa Er) 1,000 mg PO BID [facility] Last Admin: 06/18/17 10:41 Dose: 1,000 mg Sodium Chloride (Sodium Chloride Flush Syringe 10 Ml) 10 ml IV BID [facility] Last Admin: 06/17/17 22:52 Dose: 10 ml Sodium Chloride (Sodium Chloride Flush Syringe 10 Ml) 10 ml IV PRN PRN PRN Reason: LINE FLUSH Sodium Chloride (Sodium Chloride Flush Syringe 10 Ml) 10 ml IV PRN PRN PRN Reason: LINE FLUSH Last Admin: 06/17/17 20:28 Dose: 10 ml Physical Examination Vital Signs Pulse Resp BP Pulse Ox 53 L 15 75/36 97 06/17/17 11:15 06/17/17 11:15 06/17/17 11:15 06/17/17 11:15 General appearance: no acute distress HEENT: Positive: PERRL Cardiac: Positive: Reg Rate and Rhythm Lungs: Positive: Decreased Breath Sounds Neuro: Positive: Grossly Intact Extremities: Absent: edema Results 06/17/17 21:16 06/17/17 21:16 CBC 06/17/17 06/17/17 Range/Units 11:33 21:16 WBC 9.5 8.7 (4.5-11.0) K/mm3 RBC 4.00 3.93 (3.65-5.03) M/mm3 Hgb 11.9 11.4 (10.1-14.3) gm/dl Hct 35.3 34.6 (30.3-42.9) % Plt Count 233 231 (140-440) K/mm3 Lymph # 1.6 2.1 (1.2-5.4) K/mm3 [place] # 0.7 0.7 (0.0-0.8) K/mm3 Eos # 0.2 0.2 (0.0-0.4) K/mm3 Baso # 0.0 0.1 (0.0-0.1) K/mm3 Comprehensive Metabolic Panel 06/17/17 06/17/17 Range/Units 11:33 21:16 Sodium 132 L 133 L (137-145) mmol/L Potassium 4.3 3.9 (3.6-5.0) mmol/L Chloride 89.8 L 89.7 L (98-107) mmol/L Carbon Dioxide 28 27 (22-30) mmol/L BUN 33 H 36 H (7-17) mg/dL Creatinine 2.1 H 2.5 H (0.7-1.2) mg/dL Glucose 126 H 111 H (65-100) mg/dL Calcium 8.9 8.7 (8.4-10.2) mg/dL Assessment and Plan Neck pain Hx of CAD [facility] 06/01/2017 at [place]: 1. patent LAD s stent 2. s/p revascularization of the [employer] of the RCA using synergy drug eluting stents Hypertension Ischemic Cardiomyopathy, EF 35%
--- NOTE | 2017-06-18 13:22 | Event Note ---
Date: 06/18/17 Patient's cardiac status is stable, chest x-ray has no heart failure, patient has no edema or other cardiac symptoms. Left ventricular systolic function was moderately reduced, 35-40% on cardiac catheterization 3 months ago. She is on adequate medical therapy for coronary artery disease and her ischemic cardiomyopathy, without symptoms of heart failure decompensation at this time. On my full review of heart chart, the major concern I have is acute renal failure. 2 weeks ago her creatinine was 0.9, and on this current admission creatinine is 2.1-2.5. I would strongly recommend to the medical service to obtain nephrology assessment of acute renal failure prior to anticipated discharge.
[2017-06-18] MEDS: NEURONTIN PO SCH (21:45)
[2017-06-18] MEDS: ATIVAN PO PRN (21:45)
[2017-06-19] MEDS: SODIUM CHLORIDE FLUSH SYRINGE 10 ML IV SCH ×3 (02:27→22:49)
--- NOTE | 2017-06-19 08:29 | Ultrasound Report ---
FINAL REPORT EXAM: US RENAL BILAT HISTORY: Acute renal failure COMPARISONS: None. FINDINGS: Grayscale and color Doppler renal and bladder ultrasound The right kidney measures 10.4 cm in length and is without hydronephrosis or echogenic shadowing foci to suggest nephrolithiasis. Left kidney measures 11.5 cm in length and is also without hydronephrosis or echogenic shadowing foci to suggest nephrolithiasis. No abdominal ascites or free fluid in Morison's pouch. The urinary bladder is incompletely distended and not well evaluated. In the left adnexa there is a hypoechoic cystic mass measuring 7.4 x 4.1 x 7.1 cm with an echogenic shadowing area measuring up to 2.6 cm. IMPRESSION: No hydronephrosis. Suggested left adnexal dermoid or other complex cyst measuring up to 7.4 cm. Consider dedicated pelvic ultrasound and/or CT for initial further evaluation.
--- NOTE | 2017-06-19 08:30 | Consultation ---
History of Present Illness - History of Present Illness Error, consult already dictated Past History Past Medical History: CAD, heart failure, hypertension Past Surgical History: Other (Stent placement) Social history: , lives with family Family history: hypertension Medications and Allergies Allergies Allergy/AdvReac Type Severity Reaction Status Date / Time No Known Allergies Allergy Unverified 06/17/17 11:29 Home Medications Medication Instructions Recorded Confirmed Last Taken Type Losartan [Cozaar] 50 mg PO QDAY #30 tablet 12/30/15 06/17/17 2 Days Ago Rx ~06/06/17 Metoprolol [Lopressor TAB] 50 mg PO BID 10/26/16 06/17/17 2 Days Ago History ~06/06/17 Aspirin EC [Aspirin Enteric Coated 81 mg PO DAILY #30 tablet 03/01/17 06/17/17 2 Days Ago Rx TAB] ~06/06/17 AtorvaSTATin [Lipitor] 40 mg PO QHS #30 tablet 03/01/17 06/17/17 2 Days Ago Rx ~06/06/17 Clopidogrel [Plavix] 75 mg PO DAILY #30 tablet 03/01/17 06/17/17 2 Days Ago Rx ~06/06/17 Ranolazine ER [Ranexa ER] 1,000 mg PO BID #60 day 03/01/17 06/17/17 2 Days Ago Rx ~06/06/17 Duloxetine HCl [Cymbalta] 60 mg PO QDAY 05/18/17 06/17/17 2 Days Ago History ~06/06/17 Gabapentin [Neurontin] 300 mg PO HS 05/18/17 06/17/17 2 Days Ago History ~06/06/17 ISOSORBIDE MONOnitrate [Imdur ER] 60 mg PO QDAY 05/18/17 06/17/17 2 Days Ago History ~06/06/17 HYDROcodone/APAP 7.5-325 [[place] 1 tab PO BID 06/17/17 06/17/17 Unknown History 7.5-325 mg TAB] LORazepam [Ativan] 1 mg PO DAILY PRN 06/17/17 06/17/17 Unknown History Nitroglycerin [Nitrostat] 0.4 mg SL Q5M PRN 06/17/17 06/17/17 Unknown History Pantoprazole [Protonix TAB] 40 mg PO QDAY 06/17/17 06/17/17 Unknown History Cephalexin [Keflex] 500 mg PO BID #6 capsule 06/20/17 Unknown Rx Furosemide [Lasix] 40 mg PO DAILY #60 06/20/17 06/17/17 2 Days Ago Rx ~06/06/17 Active Meds: Active Medications Acetaminophen (Tylenol) 650 mg PO Q4H PRN PRN Reason: Pain MILD(1-3)/Fever >100.5/AVENDANO Last Admin: 06/17/17 20:26 Dose: 650 mg Acetaminophen/Hydrocodone Bitart ([place] 7.5/325) 1 each PO BID [facility] Last Admin: 06/18/17 21:45 Dose: 1 each Albuterol (Proventil) 2.5 mg IH Q4HRT PRN PRN Reason: Shortness Of Breath Aspirin (Ecotrin) 325 mg PO QDAY [facility] Last Admin: 06/18/17 10:41 Dose: 325 mg Atorvastatin Calcium (Lipitor) 40 mg PO QHS [facility] Last Admin: 06/19/17 02:28 Dose: 40 mg Clopidogrel Bisulfate (Plavix) 75 mg PO DAILY [facility] Last Admin: 06/18/17 10:41 Dose: 75 mg Duloxetine HCl (Cymbalta) 60 mg PO QDAY [facility] Last Admin: 06/18/17 10:41 Dose: 60 mg Gabapentin (Neurontin) 300 mg PO [facility] Last Admin: 06/18/17 21:45 Dose: 300 mg Isosorbide Mononitrate (Imdur) 60 mg PO QDAY [facility] Last Admin: 06/18/17 10:41 Dose: 60 mg Lorazepam (Ativan) 1 mg PO DAILY PRN PRN Reason: Anxiety Last Admin: 06/18/17 21:45 Dose: 1 mg Losartan Potassium (Cozaar) 50 mg PO QDAY [facility] Last Admin: 06/18/17 10:43 Dose: Not Given Metoprolol Tartrate (Lopressor) 50 mg PO BID [facility] Last Admin: 06/18/17 21:45 Dose: 50 mg Nitroglycerin (Nitrostat) 0.4 mg SL Q5M PRN PRN Reason: Chest Pain Ondansetron HCl (Zofran) 4 mg IV Q8H PRN PRN Reason: Nausea And Vomiting Pantoprazole Sodium (Protonix) 40 mg PO QDAY [facility] Last Admin: 06/18/17 10:41 Dose: 40 mg Ranolazine (Ranexa Er) 1,000 mg PO BID [facility] Last Admin: 06/18/17 21:45 Dose: 1,000 mg Sodium Chloride (Sodium Chloride Flush Syringe 10 Ml) 10 ml IV BID [facility] Last Admin: 06/19/17 02:27 Dose: 10 ml Sodium Chloride (Sodium Chloride Flush Syringe 10 Ml) 10 ml IV PRN PRN PRN Reason: LINE FLUSH Last Admin: 06/18/17 21:45 Dose: 10 ml Sodium Chloride (Sodium Chloride Flush Syringe 10 Ml) 10 ml IV PRN PRN PRN Reason: LINE FLUSH Last Admin: 06/17/17 20:28 Dose: 10 ml Exam - Vital Signs Vital signs: Vital Signs Pulse Resp BP Pulse Ox 53 L 15 75/36 97 06/17/17 11:15 06/17/17 11:15 06/17/17 11:15 06/17/17 11:15 Results - Lab Results 06/17/17 21:16 06/20/17 05:05 Most recent lab results Calcium 8.7 mg/dL (8.4-10.2) 06/17/17 21:16
--- NOTE | 2017-06-19 10:09 | Progress Note ---
Assessment and Plan Neck pain Acute renal failure diuretics held Hx of CAD [facility] 06/01/2017 at [place]: 1. patent LAD s stent 2. 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 Subjective Date of service: 06/19/17 Principal diagnosis: Systolic heart failure exercebation Interval history: Patient denies chest pain and shortness of breath. Objective Vital Signs Temp Pulse Resp BP BP Pulse Ox 06/19/17 09:26 97.9 F 64 18 93/52 95 06/19/17 04:14 97.7 F 54 L 18 114/55 114/55 98 06/19/17 04:12 61 93 06/19/17 02:30 61 06/19/17 00:12 97.4 F L 61 20 110/67 95 06/18/17 22:00 91 06/18/17 21:45 70 20 136/70 06/18/17 19:22 98.1 F 70 18 136/70 94 06/18/17 16:43 98.0 F 68 20 105/55 91 06/18/17 11:07 98.4 F 66 20 96/42 91 06/18/17 10:44 70 113/72 - Physical Examination General: No Apparent Distress HEENT: Positive: PERRL Neck: Positive: trachea midline Cardiac: Positive: Reg Rate and Rhythm Lungs: Positive: Decreased Breath Sounds Neuro: Positive: Grossly Intact Extremities: Absent: edema
[2017-06-19] MEDS: COZAAR PO SCH (10:15)
[2017-06-19] MEDS: RANEXA ER PO SCH ×2 (10:15→22:47)
[2017-06-19] MEDS: IMDUR PO SCH (10:15)
[2017-06-19] MEDS: PROTONIX PO SCH (10:15)
[2017-06-19] MEDS: PLAVIX PO SCH (10:15)
[2017-06-19] MEDS: ECOTRIN PO SCH (10:15)
[2017-06-19] MEDS: NORCO 7.5/325 PO SCH ×2 (10:15→22:47)
[2017-06-19] MEDS: LOPRESSOR PO SCH ×2 (10:15→22:48)
[2017-06-19] MEDS: CYMBALTA PO SCH (10:15)
[2017-06-19] MEDS ORDERED: NACL 0.9% 1000 ML 1,000 ML IV SCH (12:00)
--- NOTE | 2017-06-19 13:57 | Progress Note ---
Assessment and Plan Assessment and plan: 66 YO Female with CAD S/P Stent Placement, [place], HTN, CHF, Nicotine Dependence, OA , Obesity presents to ED for evaluation. Pt states that she has experienced pain in her neck, and back for the past 2 days with worsening symptoms over the past 1 day. Pt states that she also experienced naussea, and three episodes of vomiting. Pt states that she experienced similar symptoms the last time she had a heart attack Neck pain Acute renal failure diuretics held Hx of CAD [facility] 06/01/2017 at [place]: 1. patent LAD s stent 2. 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 1) Acute exacerbation of CHF (congestive heart failure) Current Visit: No Status: Acute Qualifiers: Heart failure type: systolic Qualified Code(s): I50.23 - Acute on chronic systolic (congestive) heart failure Plan to address problem: Cardiology consulted in ED, Admit to telemetry, Strict I/O, Daily weight, diuresis, afterload reduction, supplemental oxygen, LVEF 35 % as at 03/01 (2) Nicotine dependence with withdrawal Current Visit: Yes Status: Acute Qualifiers: Nicotine product type: cigarettes Qualified Code(s): F17.213 - Nicotine dependence, cigarettes, with withdrawal Plan to address problem: supportive care. (3) Acute renal failure Current Visit: Yes Status: Acute Qualifiers: Acute renal failure type: with acute tubular necrosis Qualified Code(s): N17.0 - Acute kidney failure with tubular necrosis Plan to address problem: Ranl US Nephrology consult monitor uop q shift, urine electrolytes, monitor serum creatnine, (4) Acute coronary syndrome Current Visit: No Status: Acute Plan to address problem: S/p Cath 03/01 with patent Coronaries serial cardiac enzymes, ekg,telemetry, morphine, supplemental oxygen, nitro, aspirin, (5) DVT prophylaxis Current Visit: No Status: Acute Plan to address problem: scd to ble while in bed Hospitalist Physical - Constitutional Vitals: Temp Pulse Resp BP Pulse Ox 97.9 F 64 18 93/52 96 06/19/17 09:26 06/19/17 10:15 06/19/17 09:26 06/19/17 10:15 06/19/17 10:02 General appearance: Present: no acute distress, well-nourished Results - Labs CBC & Chem 7: 06/17/17 21:16 06/17/17 21:16 Labs: Laboratory Last Values WBC 8.7 K/mm3 (4.5-11.0) 06/17/17 21:16 RBC 3.93 M/mm3 (3.65-5.03) 06/17/17 21:16 Hgb 11.4 gm/dl (10.1-14.3) 06/17/17 21:16 Hct 34.6 % (30.3-42.9) 06/17/17 21:16 MCV 88 fl (79-97) 06/17/17 21:16 MCH 29 pg (28-32) 06/17/17 21:16 MCHC 33 % (30-34) 06/17/17 21:16 RDW 15.0 % (13.2-15.2) 06/17/17 21:16 Plt Count 231 K/mm3 (140-440) 06/17/17 21:16 Lymph % (Auto) 24.7 % (13.4-35.0) 06/17/17 21:16 [place] % (Auto) 8.5 % (0.0-7.3) H 06/17/17 21:16 Eos % (Auto) 2.4 % (0.0-4.3) 06/17/17 21:16 Baso % (Auto) 0.8 % (0.0-1.8) 06/17/17 21:16 Lymph # 2.1 K/mm3 (1.2-5.4) 06/17/17 21:16 [place] # 0.7 K/mm3 (0.0-0.8) 06/17/17 21:16 Eos # 0.2 K/mm3 (0.0-0.4) 06/17/17 21:16 Baso # 0.1 K/mm3 (0.0-0.1) 06/17/17 21:16 Seg Neutrophils % 63.6 % (40.0-70.0) 06/17/17 21:16 Seg Neutrophils # 5.5 K/mm3 (1.8-7.7) 06/17/17 21:16 D-Dimer < 135.00 ng/mlDDU (0-234) 06/17/17 13:43 Sodium 133 mmol/L (137-145) L 06/17/17 21:16 Potassium 3.9 mmol/L (3.6-5.0) 06/17/17 21:16 Chloride 89.7 mmol/L (98-107) L 06/17/17 21:16 Carbon Dioxide 27 mmol/L (22-30) 06/17/17 21:16 Anion Gap 20 mmol/L 06/17/17 21:16 BUN 36 mg/dL (7-17) H 06/17/17 21:16 Creatinine 2.5 mg/dL (0.7-1.2) H 06/17/17 21:16 Estimated GFR 19 ml/min 06/17/17 21:16 BUN/Creatinine Ratio 14 % 06/17/17 21:16 Glucose 111 mg/dL (65-100) H 06/17/17 21:16 Calcium 8.7 mg/dL (8.4-10.2) 06/17/17 21:16 Troponin T < 0.010 ng/mL (0.00-0.029) 06/17/17 23:16 NT-Pro-B Natriuret Pep 298.2 pg/mL (0-900) 06/17/17 13:39 Lipase 13 units/L (13-60) 06/17/17 11:33
[2017-06-19 15:17] LABS: Calcium 9.4 mg/dL (8.4-10.2)
[2017-06-19] MEDS: ATIVAN PO PRN (17:02)
--- NOTE | 2017-06-19 20:05 | Consultation ---
History of Present Illness - Reason for Consult Consult date: 06/19/17 acute renal failure Requesting physician: CORETTA ROCHA - History of Present Illness 66-year-old lady with history of coronary artery disease, chronic systolic heart failure ejection fraction 35-40% who was recently hospitalized about a month ago at [facility] and had percutaneous transluminal coronary angioplasty and stenting. About 2 weeks ago she was started on celecoxib 2 mg twice a day because of knee pain. She took it for about a week and stopped taking it. She presents now on account of 1 day history of neck and shoulder pain with nausea and vomiting. She felt her symptoms were similar to when she had her first heart attack and so she was brought to the hospital for further evaluation. BUN and creatinine were found to be elevated at 33/2.1 mg/dL. They have actually worsened to 36/2.5 mg/dL. I'm consulted to assist with managing these. Patient denies any voiding difficulties in particular no frequency, urgency, dysuria or hematuria. She denies any history of kidney stones or recurrent infections. She was receiving diuretics and patient was also on angiotensin receptor juan. She's had episodes of hypotension while in the hospital with blood pressure is 71/40 mmHg on the day of admission. 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 denies: alcohol abuse , prescription drug abuse, IV drug use Family history: CAD (one brother has heart disease), cancer (father of stomach cancer at age 36), hypertension, stroke (mother of cerebral aneurysm at age 51), other (one brother received a liver transplant for hepatitis C related liver disease.) Medications and Allergies Allergies Allergy/AdvReac Type Severity Reaction Status Date / Time No Known Allergies Allergy Unverified 06/17/17 11:29 Home Medications Medication Instructions Recorded Confirmed Last Taken Type Losartan [Cozaar] 50 mg PO QDAY #30 tablet 12/30/15 06/17/17 2 Days Ago Rx ~06/06/17 Metoprolol [Lopressor TAB] 50 mg PO BID 10/26/16 06/17/17 2 Days Ago History ~06/06/17 Furosemide [Lasix] 40 mg PO DAILY 02/28/17 06/17/17 2 Days Ago History ~06/06/17 Aspirin EC [Aspirin Enteric Coated 81 mg PO DAILY #30 tablet 03/01/17 06/17/17 2 Days Ago Rx TAB] ~06/06/17 AtorvaSTATin [Lipitor] 40 mg PO QHS #30 tablet 03/01/17 06/17/17 2 Days Ago Rx ~06/06/17 Clopidogrel [Plavix] 75 mg PO DAILY #30 tablet 03/01/17 06/17/17 2 Days Ago Rx ~06/06/17 Ranolazine ER [Ranexa ER] 1,000 mg PO BID #60 day 03/01/17 06/17/17 2 Days Ago Rx ~06/06/17 Duloxetine HCl [Cymbalta] 60 mg PO QDAY 05/18/17 06/17/17 2 Days Ago History ~06/06/17 Gabapentin [Neurontin] 300 mg PO HS 05/18/17 06/17/17 2 Days Ago History ~06/06/17 ISOSORBIDE MONOnitrate [Imdur ER] 60 mg PO QDAY 05/18/17 06/17/17 2 Days Ago History ~06/06/17 HYDROcodone/APAP 7.5-325 [Simpson 1 tab PO BID 06/17/17 06/17/17 Unknown History 7.5-325 mg TAB] LORazepam [Ativan] 1 mg PO DAILY PRN 06/17/17 06/17/17 Unknown History Metolazone 5 mg PO DAILY 06/17/17 06/17/17 Unknown History Nitroglycerin [Nitrostat] 0.4 mg SL Q5M PRN 06/17/17 06/17/17 Unknown History Pantoprazole [Protonix] 40 mg PO QDAY 06/17/17 06/17/17 Unknown History Potassium Chloride 10 meq PO DAILY 06/17/17 06/17/17 Unknown History Active Meds: Active Medications Acetaminophen (Tylenol) 650 mg PO Q4H PRN PRN Reason: Pain MILD(1-3)/Fever >100.5/AVENDANO Last Admin: 06/17/17 20:26 Dose: 650 mg Acetaminophen/Hydrocodone Bitart (Simpson 7.5/325) 1 each PO BID [facility] Last Admin: 06/19/17 10:15 Dose: Not Given Albuterol (Proventil) 2.5 mg IH Q4HRT PRN PRN Reason: Shortness Of Breath Aspirin (Ecotrin) 325 mg PO QDAY [facility] Last Admin: 06/19/17 10:15 Dose: 325 mg Atorvastatin Calcium (Lipitor) 40 mg PO QHS [facility] Last Admin: 06/19/17 02:28 Dose: 40 mg Clopidogrel Bisulfate (Plavix) 75 mg PO DAILY [facility] Last Admin: 06/19/17 10:15 Dose: 75 mg Duloxetine HCl (Cymbalta) 60 mg PO QDAY [facility] Last Admin: 06/19/17 10:15 Dose: 60 mg Gabapentin (Neurontin) [address] [facility] Last Admin: 06/18/17 21:45 Dose: 300 mg Sodium Chloride (Nacl 0.9% 1000 Ml) 1,000 mls @ 60 mls/hr IV DIRECT [facility] Stop: 06/20/17 11:59 Last Admin: 06/19/17 13:48 Dose: 60 mls/hr Isosorbide Mononitrate (Imdur) 60 mg PO QDAY [facility] Last Admin: 06/19/17 10:15 Dose: Not Given Lorazepam (Ativan) 1 mg PO DAILY PRN PRN Reason: Anxiety Last Admin: 06/19/17 17:02 Dose: 1 mg Metoprolol Tartrate (Lopressor) 50 mg PO BID [facility] Last Admin: 06/19/17 10:15 Dose: Not Given Nitroglycerin (Nitrostat) 0.4 mg SL Q5M PRN PRN Reason: Chest Pain Ondansetron HCl (Zofran) 4 mg IV Q8H PRN PRN Reason: Nausea And Vomiting Pantoprazole Sodium (Protonix) 40 mg PO QDAY [facility] Last Admin: 06/19/17 10:15 Dose: 40 mg Ranolazine (Ranexa Er) 1,000 mg PO BID [facility] Last Admin: 06/19/17 10:15 Dose: Not Given Sodium Chloride (Sodium Chloride Flush Syringe 10 Ml) 10 ml IV BID [facility] Last Admin: 06/19/17 14:00 Dose: 10 ml Sodium Chloride (Sodium Chloride Flush Syringe 10 Ml) 10 ml IV PRN PRN PRN Reason: LINE FLUSH Last Admin: 06/18/17 21:45 Dose: 10 ml Review of Systems All systems: negative (Constitutional: no fever or chills. No anorexia or weight loss. HEENT: No sore throat but admits to sinus drainage no hearing or vision impairment . Cardiovascular: No chest pain or palpitations but admits to shortness of breath and had lower extremity swelling. No dizziness. Respiratory: No cough, sputum, shortness of breath, hemoptysis or wheezing. Gastrointestinal: Had nausea and vomiting on presentation. No diarrhea, abdominal pain, hematemesis or melena. Genitourinary: No frequency urgency dysuria or hematuria. hematologic: No abnormal bleeding or bruising. Integumentary: no pruritus or rash. Neurological: Admits to headache. No focal weakness or numbness, no syncope or seizures. Endocrine: admits to heat intolerance. No cold intolerance Musculoskeletal: Admits to joint pains in her knees, shoulders and neck stiffness. Psychiatry: Admits to both anxiety and depression) Exam - Vital Signs Vital signs: Vital Signs Pulse Resp BP Pulse Ox 53 L 15 75/36 97 06/17/17 11:15 06/17/17 11:15 06/17/17 11:15 06/17/17 11:15 - Physical Exam Narrative exam: Obese middle-aged white female lying in bed in no acute distress HEENT: NCAT, pink oral mucous membrane Neck: Supple, no venous distention CVS: S1S2 RRR with no murmur, rub or gallop Chest: Increased anterior-posterior diameter,faint rhonchi Abdomen: Obese, soft, nontender, no organomegaly, bowel sounds are present Extremities: No edema, no clubbing Skin: Warm and dry, no rash Neuro: Awake, alert no focal deficits Results - Lab Results 06/17/17 21:16 06/19/17 14:49 Most recent lab results Calcium 9.4 mg/dL (8.4-10.2) 06/19/17 14:49 Assessment and Plan - Patient Problems (1) Acute kidney failure with tubular necrosis Current Visit: Yes Status: Acute Plan to address problem: Acute kidney injury prerenal azotemia versus acute tubular necrosis secondary to hypotension. NSAID-induced nephropathy may also be contributing which recent exposure. It's unclear if after her recent contrast exposure there was worsening kidney function. Agree with holding diuretics. With the low blood pressure, will also temporarily hold angiotensin receptor juan. Ultrasound shows no hydronephrosis, mass or stones. Incidentally noted left adnexal mass needs further imaging and possibly gynecologic consult. Get urine studies. (2) Hypotension Current Visit: Yes Status: Acute Plan to address problem: Hypotension secondary to volume depletion secondary to nausea and vomiting on presentation and also diuretics and hypertensive medications. I agree with gentle volume repletion and holding diuretics. Follow blood pressure (3) Hyponatremia Current Visit: Yes Status: Acute Plan to address problem: Hypovolemic hyponatremia. I agree with isotonic saline. Follow-up sodium (4) Chronic systolic heart failure Current Visit: Yes Status: Acute Plan to address problem: No signs of volume overload. Monitor closely off of diuretics (5) History of coronary artery disease Current Visit: Yes Status: Acute Plan to address problem: Management Per Cardiology (6) Osteoarthritis Current Visit: Yes Status: Resolved Plan to address problem: Avoid NSAIDs in the future
[2017-06-19 21:26] LABS: Bacteria,Urine 1+ /HPF (Negative); Bilirubin,Urine NEG (Negative); Blood,Urine NEG (Negative); Color,Urine Yellow (Yellow); Hyaline Casts,Urine 1 /LPF; Protein,Urine <15 mg/dL mg/dL (Negative); Urobilinogen,Urine < 2.0 mg/dL (<2.0)
[2017-06-19 21:34] LABS: Creatinine,Urine 42.6 mg/dL (0.1-20.0)
[2017-06-19 21:37] LABS: Creatinine,Urine 42.6 mg/dL (0.1-20.0); Microalbumin/Creatinine Ratio 28.1 ug/mg
[2017-06-19] MEDS: NEURONTIN PO SCH (22:46)
--- NOTE | 2017-06-20 05:59 | Ultrasound Report ---
FINAL REPORT EXAM: US PELVIC COMPLETE HISTORY: left adnexal mass on abdominal ultrasound COMPARISONS: Renal ultrasound 06/18/2017 FINDINGS: Anteverted uterus measures 9.9 x 7 x 8.9 cm. Myometrium is within normal limits. Endometrium is heterogeneous and thickened at the fundal portion measuring up to 5 cm. No free fluid seen in the pelvis. The ovaries are not well visualized. Left adnexal partially cystic mass measuring up to 7.2 x 3.3 x 4.4 cm with eccentric echogenic shadowing structure measuring up to 2.4 cm. IMPRESSION: Left adnexal mass measuring up to 7.2 cm is most consistent with a dermoid cyst. Gynecology consultation is recommended if not already obtained. CT or MRI could further characterize this finding if needed. Suggested heterogeneous thickening of the fundal endometrium measuring up to 5 centimeters, which may be secondary to a polyp or fibroid. Correlation for abnormal uterine bleeding is requested. This finding can be further evaluated with additional imaging, direct visualization and sampling as warranted.
--- NOTE | 2017-06-20 09:23 | Progress Note ---
Assessment and Plan Neck pain Acute renal failure diuretics held Hx of CAD [facility] 06/01/2017 at [place]: 1. patent LAD s stent 2. 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 Stable cardiac guajardo. Subjective Date of service: 06/20/17 Principal diagnosis: Systolic heart failure exercebation Interval history: Patient has no complaints. Her creatinine has improved to 1.1 today. Objective Vital Signs Temp Pulse Pulse Resp Resp BP BP 06/20/17 08:15 06/20/17 05:47 98.9 F 58 L 18 06/20/17 00:27 98.9 F 74 109/61 06/19/17 23:47 18 06/19/17 22:48 82 133/74 06/19/17 22:47 19 06/19/17 22:00 70 18 06/19/17 21:50 67 06/19/17 20:05 97.2 F L 82 20 133/74 06/19/17 19:30 18 06/19/17 16:32 98.2 F 63 18 132/68 06/19/17 14:00 69 06/19/17 10:15 64 93/52 06/19/17 10:02 06/19/17 09:26 97.9 F 64 18 BP Pulse Ox 06/20/17 08:15 95 06/20/17 05:47 115/66 98 06/20/17 00:27 109/61 06/19/17 23:47 06/19/17 22:48 06/19/17 22:47 06/19/17 22:00 06/19/17 21:50 06/19/17 20:05 133/74 06/19/17 19:30 06/19/17 16:32 95 06/19/17 14:00 06/19/17 10:15 06/19/17 10:02 96 06/19/17 09:26 93/52 95 - Physical Examination General: No Apparent Distress HEENT: Positive: PERRL Neck: Positive: trachea midline Cardiac: Positive: Reg Rate and Rhythm Lungs: Positive: Decreased Breath Sounds Neuro: Positive: Grossly Intact Extremities: Absent: edema - Labs and Meds Comprehensive Metabolic Panel 05/08/18 05/09/18 Range/Units 14:49 05:05 Sodium 134 L 133 L (137-145) mmol/L Potassium 3.9 3.4 L (3.6-5.0) mmol/L Chloride 89.0 L 88.7 L (98-107) mmol/L Carbon Dioxide 32 H 30 (22-30) mmol/L BUN 34 H 26 H (7-17) mg/dL Creatinine 1.5 H 1.1 (0.7-1.2) mg/dL Glucose 132 H 111 H (65-100) mg/dL Calcium 9.4 9.0 (8.4-10.2) mg/dL
[2017-06-20] MEDS: CYMBALTA PO SCH (10:49)
[2017-06-20] MEDS: ECOTRIN PO SCH (10:49)
[2017-06-20] MEDS: RANEXA ER PO SCH (10:49)
[2017-06-20] MEDS: PLAVIX PO SCH (10:49)
[2017-06-20] MEDS: PROTONIX PO SCH (10:50)
[2017-06-20] MEDS: LOPRESSOR PO SCH (10:51)
[2017-06-20] MEDS: IMDUR PO SCH (10:51)
[2017-06-20] MEDS: NORCO 7.5/325 PO SCH (10:52)
[2017-06-20] MEDS: SODIUM CHLORIDE FLUSH SYRINGE 10 ML IV SCH (10:52)
--- NOTE | 2017-06-20 16:08 | Discharge Summary ---
Providers - Providers Date of Admission: 06/17/17 13:51 Attending physician: ADALGISA FERREIRA MD 06/17/17 Consult to Cardiac Rehabilitation [CONS] Routine Reason For Exam: Phase I 06/17/17 13:39 Consult to Physician [CONS] Routine Comment: Consulting Provider: BROOK REED Physician Instructions: Reason For Exam: chf, bradycardia 06/18/17 19:51 Consult to Physician [CONS] Routine Comment: Consulting Provider: YOHANA FOWLER Physician Instructions: Reason For Exam: acute renal failure Primary care physician: TELEVISION ANTENNA INSTALLER Hospitalization Condition: Stable Hospital course: 66 YO Female with CAD S/P Stent Placement, [place], HTN, CHF, Nicotine Dependence, OA , Obesity presents to ED for evaluation. Pt states that she has experienced pain in her neck, and back for the past 2 days with worsening symptoms over the past 1 day. Pt states that she also experienced naussea, and three episodes of vomiting. Pt states that she experienced similar symptoms the last time she had a heart attack Neck pain Acute renal failure diuretics held Hx of CAD [facility] 06/01/2017 at [facility]: 1. patent LAD s stent 2. 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 1) Acute exacerbation of CHF (congestive heart failure) Current Visit: No Status: Acute Qualifiers: Heart failure type: systolic Qualified Code(s): I50.23 - Acute on chronic systolic (congestive) heart failure Plan to address problem: Cardiology consulted in ED, Admit to telemetry, Strict I/O, Daily weight, diuresis, afterload reduction, supplemental oxygen, LVEF 35 % as at 03/01 (2) Nicotine dependence with withdrawal Current Visit: Yes Status: Acute Qualifiers: Nicotine product type: cigarettes Qualified Code(s): F17.213 - Nicotine dependence, cigarettes, with withdrawal Plan to address problem: supportive care. (3) Acute renal failure Current Visit: Yes Status: Acute Qualifiers: Acute renal failure type: with acute tubular necrosis Qualified Code(s): N17.0 - Acute kidney failure with tubular necrosis Plan to address problem: Ranl US Nephrology consult monitor uop q shift, urine electrolytes, monitor serum creatnine, (4) Acute coronary syndrome Current Visit: No Status: Acute Plan to address problem: S/p Cath 03/01 with patent Coronaries serial cardiac enzymes, ekg,telemetry, morphine, supplemental oxygen, nitro, aspirin, (5) DVT prophylaxis Current Visit: No Status: Acute Plan to address problem: scd to ble while in bed Disposition: DC-01 TO HOME OR SELFCARE Time spent for discharge: 33 minutes Core Measure Documentation - Palliative Care Palliative Care/ Comfort Measures: Not Applicable - Core Measures Any of the following diagnoses?: none Exam - Constitutional Vitals: Temp Pulse Resp BP Pulse Ox 98.9 F 66 20 120/64 95 06/20/17 05:47 06/20/17 14:00 06/20/17 10:52 06/20/17 10:51 06/20/17 08:15 General appearance: Present: no acute distress, well-nourished - EENT Eyes: Present: PERRL ENT: hearing intact, clear oral mucosa - Neck Neck: Present: supple, normal ROM - Respiratory Respiratory effort: normal Respiratory: bilateral: CTA - Cardiovascular Heart Sounds: Present: S1 & S2. Absent: rub, click - Extremities Extremities: pulses symmetrical, No edema Peripheral Pulses: within normal limits - Abdominal General gastrointestinal: Present: soft, non-tender, non-distended, normal bowel sounds Female genitourinary: Present: normal - Integumentary Integumentary: Present: clear, warm, dry - Musculoskeletal Musculoskeletal: gait normal, strength equal bilaterally - Psychiatric Psychiatric: appropriate mood/affect, intact judgment & insight - Neurologic Neurologic: CNII-XII intact, moves all extremities Plan Follow up with: PRIMARY CARE, [Primary Care Provider] - 3-5 Days
[2017-06-20 16:42] VITALS: BP 114/65
--- NOTE | 2017-06-20 17:10 | Progress Note ---
Assessment and Plan - Patient Problems (1) Acute kidney failure with tubular necrosis Current Visit: Yes Status: Acute Plan to address problem: Acute kidney injury prerenal azotemia versus acute tubular necrosis secondary to hypotension. NSAID-induced nephropathy may also be contributing which recent exposure. It's unclear if after her recent contrast exposure there was worsening kidney function. kidney function is now improving. OK to discharge from my standpoint and I will follow kidney function as an outpatientas (2) Hypotension Current Visit: Yes Status: Acute Plan to address problem: Hypotension secondary to volume depletion secondary to nausea and vomiting on presentation and also diuretics and hypertensive medications. I agree with gentle volume repletion and holding diuretics. Follow blood pressure (3) Hyponatremia Current Visit: Yes Status: Acute Plan to address problem: Hypovolemic hyponatremia. I agree with isotonic saline. Follow-up sodium (4) Chronic systolic heart failure Current Visit: Yes Status: Acute Plan to address problem: No signs of volume overload. Monitor closely off of diuretics (5) History of coronary artery disease Current Visit: Yes Status: Acute Plan to address problem: Management Per Cardiology (6) Osteoarthritis Current Visit: Yes Status: Resolved Plan to address problem: Avoid NSAIDs in the future Subjective Date of service: 06/20/17 Principal diagnosis: Systolic heart failure exercebation Interval history: Recent seen lying in bed. She feels much better. Would like to go home. Objective - Exam Narrative Exam: Obese middle-aged white female lying in bed in no acute distress HEENT: NCAT, pink oral mucous membrane Neck: Supple, no venous distention CVS: S1S2 RRR with no murmur, rub or gallop Chest: Increased anterior-posterior diameter,faint rhonchi Abdomen: Obese, soft, nontender, no organomegaly, bowel sounds are present Extremities: No edema, no clubbing Skin: Warm and dry, no rash Neuro: Awake, alert no focal deficits - Vital Signs Vital signs: Vital Signs - 12hr 06/20/17 06/20/17 06/20/17 05:47 08:15 10:00 Temperature 98.9 F Pulse Rate 58 L Respiratory 18 20 Rate Respiratory 20 Rate [Neck] Blood Pressure Blood Pressure 115/66 [Right] O2 Sat by Pulse 98 95 Oximetry 06/20/17 06/20/17 06/20/17 10:51 10:52 14:00 Temperature Pulse Rate 68 66 Respiratory 20 Rate Respiratory Rate [Neck] Blood Pressure 120/64 Blood Pressure [Right] O2 Sat by Pulse Oximetry 06/20/17 15:34 Temperature 98.3 F Pulse Rate 59 L Respiratory 20 Rate Respiratory Rate [Neck] Blood Pressure 114/65 Blood Pressure [Right] O2 Sat by Pulse 96 Oximetry - Lab 06/17/17 21:16 06/20/17 05:05 Most recent lab results Calcium 9.0 mg/dL (8.4-10.2) 06/20/17 05:05 Urine Creatinine 42.6 mg/dL (0.1-20.0) H 06/19/17 21:12 Urine Sodium 32 mmol/L 06/19/17 21:12 Urine Total Protein 7 mg/dL (5-11.8) 06/19/17 21:12
== END 2017-06-20 18:31 | disposition home or self-care (01) | DRG 682 ==
LOC: ED 10:51 → 4A 13:51
PROVIDERS: ADMIT Internal Medicine; ATTEND Internal Medicine
DX: N17.0 Acute kidney failure with tubular necrosis (principal); I50.23 Acute on chronic systolic (congestive) heart failure; F17.213 Nicotine dependence, cigarettes, with withdrawal; I24.9 Acute ischemic heart disease, unspecified; Z68.41 Body mass index [BMI] 40.0-44.9, adult; E87.1 Hypo-osmolality and hyponatremia; I11.0 Hypertensive heart disease with heart failure; N14.1 Nephropathy induced by other drugs, medicaments and biological substances; T39.395A Adverse effect of other nonsteroidal anti-inflammatory drugs [NSAID], initial encounter; M19.90 Unspecified osteoarthritis, unspecified site; E66.9 Obesity, unspecified; I25.5 Ischemic cardiomyopathy; I25.10 Atherosclerotic heart disease of native coronary artery without angina pectoris; M54.2 Cervicalgia; Z95.5 Presence of coronary angioplasty implant and graft; I25.2 Old myocardial infarction; Z79.899 Other long term (current) drug therapy; Z79.82 Long term (current) use of aspirin; Z82.49 Family history of ischemic heart disease and other diseases of the circulatory system; Z80.0 Family history of malignant neoplasm of digestive organs; Z82.3 Family history of stroke; Y92.89 Other specified places as the place of occurrence of the external cause; I95.2 Hypotension due to drugs; T50.2X5A Adverse effect of carbonic-anhydrase inhibitors, benzothiadiazides and other diuretics, initial encounter
CPT/HCPCS: 36415; 71045; 72125; 76770; 76856; 80048; 81001; 82043; 82570; 83690; 83880; 84156; 84300; 84484; 85025; 85379; 93005; 93010; 96361; 96374; 96375; 99406; A9270-GY; J0461; J1940; J2405; J7030

== ENCOUNTER 2017-06-26 15:17 | Inpatient (IN) | payer MEDICARE ==
[2017-06-26] MEDS ORDERED: ASPIRIN PO ONE (15:31)
[2017-06-26 15:51] LABS: Basophils # (Auto) 0.1 K/mm3 (0.0-0.1); Basophils % (Auto) 1.3 % (0.0-1.8); Eosinophils # (Auto) 0.4 K/mm3 (0.0-0.4); Eosinophils % (Auto) 4.7 % (0.0-4.3); Hematocrit 35.4 % (30.3-42.9); Hemoglobin 11.5 gm/dl (10.1-14.3); Lymphocytes # (Auto) 1.9 K/mm3 (1.2-5.4); Lymphocytes % (Auto) 23.3 % (13.4-35.0); Mean Corpuscular HGB Conc 33 % (30-34); Mean Corpuscular Hemoglobin 29 pg (28-32); Mean Corpuscular Volume 88 fl (79-97); Monocytes # (Auto) 0.5 K/mm3 (0.0-0.8); Monocytes % (Auto) 6.8 % (0.0-7.3); Platelet Count 248 K/mm3 (140-440); Red Blood Count 4.04 M/mm3 (3.65-5.03); Red Cell Distribution Width 15.1 % (13.2-15.2)
[2017-06-26] MEDS ORDERED: NACL 0.9% 1000 ML 1,000 ML ONE (16:06)
[2017-06-26 16:07] LABS: Calcium 9.4 mg/dL (8.4-10.2)
--- NOTE | 2017-06-26 16:40 | Emergency Department Report ---
ED Chest Pain HPI - General Chief Complaint: Chest Pain Stated Complaint: CHEST PAIN Time Seen by Provider: 06/26/17 16:14 Source: patient Mode of arrival: Ambulatory Limitations: No Limitations - History of Present Illness Initial Comments: Patient is patient Dr. bains was seen in the office several days ago. Only had a RCA stent placed a ?month ago at [facility], she has been having persistent intermittent chest pain although she does have history of anxiety she developed chest pain syndrome today that she's been taking nitroglycerin for her she presents with systolic in the 80s she did take her aspirin today. She is having intermittent chest pain. Case was discussed with Dr. bains who also reviewed her old and her current EKG he felt that they were unchanged he did not feel that it was group sales representative of acute STEMI. He did feel that it was consistent with old inferior wall [place]. She is here for evaluation of chest pain and hypotension in the history of patient had a stent one month ago did take her aspirin this morning and has been taking nitroglycerin pills all day, was admitted in June of 2017 w/ chf/cp/rf, hx of acs here today for midsternal chest pain across the precordium question of similar to previous patient is poor historian apparently does have some history of atypical chest pain she's not sure if is slightly reproducible. She said it is not tearing pain, did does not radiate between the scapula. She denies calf pain or swelling no history of DVT or PE no shortness of breath. Evaluation midsternal chest pain history of ACS with stents with no acute change on EKG , d/w dr bains and ekg sent to him and eval by him -: Gradual, hour(s) Onset: during rest Pain Location: substernal Pain Radiation: none Severity: mild, moderate Severity scale (0 -10): 4 Quality: tightness, aching, heaviness Other Symptoms: denies: cough, fever, syncope, rash, acid taste in mouth, leg swelling, palpitations, burping Treatments Prior to Arrival: aspirin, nitroglycerin - Related Data Home Medications Medication Instructions Recorded Confirmed Last Taken Metoprolol [Lopressor TAB] 50 mg PO BID 10/26/16 06/17/17 2 Days Ago ~06/06/17 Duloxetine HCl [Cymbalta] 60 mg PO QDAY 05/18/17 06/17/17 2 Days Ago ~06/06/17 Gabapentin [Neurontin] 300 mg PO HS 05/18/17 06/17/17 2 Days Ago ~06/06/17 ISOSORBIDE MONOnitrate [Imdur ER] 60 mg PO QDAY 05/18/17 06/17/17 2 Days Ago ~06/06/17 HYDROcodone/APAP 7.5-325 [[place] 1 tab PO BID 06/17/17 06/17/17 Unknown 7.5-325 mg TAB] LORazepam [Ativan] 1 mg PO DAILY PRN 06/17/17 06/17/17 Unknown Nitroglycerin [Nitrostat] 0.4 mg SL Q5M PRN 06/17/17 06/17/17 Unknown Pantoprazole [Protonix TAB] 40 mg PO QDAY 06/17/17 06/17/17 Unknown Previous Rx's Medication Instructions Recorded Last Taken Type Losartan [Cozaar] 50 mg PO QDAY #30 tablet 12/30/15 2 Days Ago Rx ~06/06/17 Aspirin EC [Aspirin Enteric Coated 81 mg PO DAILY #30 tablet 03/01/17 2 Days Ago Rx TAB] ~06/06/17 AtorvaSTATin [Lipitor] 40 mg PO QHS #30 tablet 03/01/17 2 Days Ago Rx ~06/06/17 Clopidogrel [Plavix] 75 mg PO DAILY #30 tablet 03/01/17 2 Days Ago Rx ~06/06/17 Ranolazine ER [Ranexa ER] 1,000 mg PO BID #60 day 03/01/17 2 Days Ago Rx ~06/06/17 Cephalexin [Keflex] 500 mg PO BID #6 capsule 06/20/17 Unknown Rx Furosemide [Lasix] 40 mg PO DAILY #60 06/20/17 2 Days Ago Rx ~06/06/17 Allergies Allergy/AdvReac Type Severity Reaction Status Date / Time No Known Allergies Allergy Unverified 06/17/17 11:29 Heart Score - HEART Score History: Moderately suspicious EKG: Non-specific Age: > 65 Risk factors: > 3 risk factors or hx of atherosclerotic disease Troponin: < normal limit HEART Score: 6 ED Review of Systems ROS: Stated complaint: CHEST PAIN Other details as noted in HPI Comment: All other systems reviewed and negative Constitutional: denies: diaphoresis, fever, malaise Eyes: denies: eye discharge, vision change ENT: denies: dental pain, hearing loss, epistaxis Respiratory: denies: shortness of breath, SOB with exertion, SOB at rest, stridor Cardiovascular: chest pain. denies: palpitations, edema, syncope Endocrine: denies: excessive sweating, flushing, intolerance to cold Gastrointestinal: denies: abdominal pain, nausea, vomiting, diarrhea, constipation, hematemesis, melena, hematochezia Neurological: denies: numbness, paresthesias, confusion, abnormal gait, vertigo Psychiatric: denies: auditory hallucinations, visual hallucinations, homicidal thoughts Hematological/Lymphatic: denies: easy bruising ED Past Medical Hx - Past Medical History Hx Hypertension: Yes Hx Heart Attack/AMI: Yes Hx Congestive Heart Failure: Yes Hx Arthritis: Yes - Surgical History Hx Coronary Stent: Yes Additional Surgical History: cardiac stents - Social History Smoking Status: Current Every Day Smoker Substance Use Type: None - Medications Home Medications: Home Medications Medication Instructions Recorded Confirmed Last Taken Type Losartan [Cozaar] 50 mg PO QDAY #30 tablet 12/30/15 06/17/17 2 Days Ago Rx ~06/06/17 Metoprolol [Lopressor TAB] 50 mg PO BID 10/26/16 06/17/17 2 Days Ago History ~06/06/17 Aspirin EC [Aspirin Enteric Coated 81 mg PO DAILY #30 tablet 03/01/17 06/17/17 2 Days Ago Rx TAB] ~06/06/17 AtorvaSTATin [Lipitor] 40 mg PO QHS #30 tablet 03/01/17 06/17/17 2 Days Ago Rx ~06/06/17 Clopidogrel [Plavix] 75 mg PO DAILY #30 tablet 03/01/17 06/17/17 2 Days Ago Rx ~06/06/17 Ranolazine ER [Ranexa ER] 1,000 mg PO BID #60 day 03/01/17 06/17/17 2 Days Ago Rx ~06/06/17 Duloxetine HCl [Cymbalta] 60 mg PO QDAY 05/18/17 06/17/17 2 Days Ago History ~06/06/17 Gabapentin [Neurontin] 300 mg PO HS 05/18/17 06/17/17 2 Days Ago History ~06/06/17 ISOSORBIDE MONOnitrate [Imdur ER] 60 mg PO QDAY 05/18/17 06/17/17 2 Days Ago History ~06/06/17 HYDROcodone/APAP 7.5-325 [[place] 1 tab PO BID 06/17/17 06/17/17 Unknown History 7.5-325 mg TAB] LORazepam [Ativan] 1 mg PO DAILY PRN 06/17/17 06/17/17 Unknown History Nitroglycerin [Nitrostat] 0.4 mg SL Q5M PRN 06/17/17 06/17/17 Unknown History Pantoprazole [Protonix TAB] 40 mg PO QDAY 06/17/17 06/17/17 Unknown History Cephalexin [Keflex] 500 mg PO BID #6 capsule 06/20/17 Unknown Rx Furosemide [Lasix] 40 mg PO DAILY #60 06/20/17 06/17/17 2 Days Ago Rx ~06/06/17 ED Physical Exam - General Limitations: No Limitations General appearance: alert, anxious - Head Head exam: Present: atraumatic, normocephalic - Eye Eye exam: Present: normal appearance, EOMI - ENT ENT exam: Present: normal exam, normal orophraynx - Neck Neck exam: Present: normal inspection. Absent: tenderness, meningismus - Respiratory Respiratory exam: Present: normal lung sounds bilaterally. Absent: rales - Cardiovascular Cardiovascular Exam: Present: regular rate, normal rhythm, other (pulses equal bilaterally, blood pressure, bilaterally). Absent: rubs - GI/Abdominal GI/Abdominal exam: Present: soft. Absent: distended, tenderness, guarding, rebound, rigid, mass - Extremities Exam Extremities exam: Present: normal capillary refill, other (O Homans sign for range of motion neurovascular intact). Absent: calf tenderness - Back Exam Back exam: Present: normal inspection. Absent: CVA tenderness (R) - Neurological Exam Neurological exam: Present: alert, oriented X3, CN II-XII intact. Absent: motor sensory deficit - Psychiatric Psychiatric exam: Present: anxious - Skin Skin exam: Present: warm ED Course Vital Signs 06/26/17 06/26/17 06/26/17 15:28 16:13 16:15 Temperature 98.6 F Pulse Rate 61 57 L 57 L Respiratory 24 19 14 Rate Blood Pressure 82/35 85/52 O2 Sat by Pulse 94 92 94 Oximetry 06/26/17 06/26/17 16:26 16:30 Temperature Pulse Rate 55 L Respiratory 16 18 Rate Blood Pressure 89/51 O2 Sat by Pulse 98 96 Oximetry LAYNE score - Layne Score Age > 65: (1) Yes Aspirin use within the Past 7 Days: (1) Yes 3 or more CAD Risk Factors: (1) Yes 2 or more Angina events in past 24 hrs: (0) No Known CAD with more than 50% Stenosis: (1) Yes Elevated Cardiac Markers: (0) No ST Deviation Greater than 0.5mm: (0) No LAYNE Score: 4 ED Medical Decision Making - Lab Data Result diagrams: 06/26/17 15:34 06/26/17 15:34 - EKG Data -: EKG Interpreted by Me - EKG Data Interpretation: other (old inferior wall [place] with unchanged EKG from a month ago) - Radiology Data Radiology results: image reviewed - Medical Decision Making Symptoms began at rest symptoms are atypical. Unclear of similar previous chest pain. Patient has been compliant with her medicines. She provided a stent placed at [facility] a month ago. She is unsure if it similar to previous cardiac pain is across precordium. Case was initially discussed with Dr. bains who has seen the patient recently. He did not feel that she was an acute STEMI at this time. Initial troponin is negative at this time. Blood pressure and pulses were equal bilaterally. Chest x-ray showed normal mediastinum. There was no CHF as per my reading the film. The blood pressure did improve with fluid bolus 100 systolic. The hypotension does seem related to excessive ntg glycerin. Patient did take her aspirin the case was discussed with Dr. Alcala of hospitalist service for abdomen for further evaluation of chest pain without evidence of EKG change or elevated troponin at this time with a normal mediastinum and equal pulses. Patient does have history of renal insufficiency , ekg were reveiwed by dr bains. and no stemi noted, pt admit for further eval cp Critical Care Time: Yes Critical care time in (mins) excluding proc time.: 45 Critical care attestation.: If time is entered above; I have spent that time in minutes in the direct care of this critically ill patient, excluding procedure time. ED Disposition Clinical Impression: Cardiomyopathy, CAD (coronary artery disease), Chest pain Disposition: OP ADMIT IP TO THIS HOSP Is pt being admited?: Yes Condition: Stable Instructions: Chest Pain (ED) Time of Disposition: 17:11
[2017-06-26] MEDS ORDERED: ZOFRAN ONE (17:01)
[2017-06-26] MEDS ORDERED: MORPHINE ONE (17:01)
[2017-06-26] MEDS ORDERED: ZOFRAN IV ONE (17:14)
[2017-06-26] MEDS ORDERED: MORPHINE IV ONE (17:15)
--- NOTE | 2017-06-26 17:25 | History and Physical Report ---
History of Present Illness Chief complaint: My chest was hurting History of present illness: 66 YO Female with CAD S/P Stent Placement, [place], HTN, Systolic CHF (EF 15%), Anxiety, Nicotine Dependence, OA, Obesity presents to ED for evaluation. Pt states that she has experienced pain in her chest for the past 2 days with worsening symptoms over the past 1 day. Pt states that the pain is 4-6/10, substernal, crushing, nonradiating, not worsened with exertion or relieved with rest. Pt states that she experienced similar symptoms the last time she had a heart attack. Pt denies fever, chills, palpitations, diaphoresis, shortness of breath, BRBPR, productive cough, trauma, or recent ill contacts. Pt seen an evaluated in ED and found to have Acute Renal Failure and evidence of CHF. Cardiology consulted in ED. Pt symptoms resolved at time of exam. Past History Past Medical History: acute MO, CAD, heart failure, hypertension Past Surgical History: Other (Cardiac Stent) Social history: , lives with family, smoking. denies: alcohol abuse Family history: hypertension Medications and Allergies Allergies Allergy/AdvReac Type Severity Reaction Status Date / Time No Known Allergies Allergy Unverified 06/17/17 11:29 Home Medications Medication Instructions Recorded Confirmed Last Taken Type Losartan [Cozaar] 50 mg PO QDAY #30 tablet 12/30/15 06/17/17 2 Days Ago Rx ~06/06/17 Metoprolol [Lopressor TAB] 50 mg PO BID 10/26/16 06/17/17 2 Days Ago History ~06/06/17 Aspirin EC [Aspirin Enteric Coated 81 mg PO DAILY #30 tablet 03/01/17 06/17/17 2 Days Ago Rx TAB] ~06/06/17 AtorvaSTATin [Lipitor] 40 mg PO QHS #30 tablet 03/01/17 06/17/17 2 Days Ago Rx ~06/06/17 Clopidogrel [Plavix] 75 mg PO DAILY #30 tablet 03/01/17 06/17/17 2 Days Ago Rx ~06/06/17 Ranolazine ER [Ranexa ER] 1,000 mg PO BID #60 day 03/01/17 06/17/17 2 Days Ago Rx ~06/06/17 Duloxetine HCl [Cymbalta] 60 mg PO QDAY 05/18/17 06/17/17 2 Days Ago History ~06/06/17 Gabapentin [Neurontin] 300 mg PO HS 05/18/17 06/17/17 2 Days Ago History ~06/06/17 ISOSORBIDE MONOnitrate [Imdur ER] 60 mg PO QDAY 05/18/17 06/17/17 2 Days Ago History ~06/06/17 HYDROcodone/APAP 7.5-325 [[place] 1 tab PO BID 06/17/17 06/17/17 Unknown History 7.5-325 mg TAB] LORazepam [Ativan] 1 mg PO DAILY PRN 06/17/17 06/17/17 Unknown History Nitroglycerin [Nitrostat] 0.4 mg SL Q5M PRN 06/17/17 06/17/17 Unknown History Pantoprazole [Protonix TAB] 40 mg PO QDAY 06/17/17 06/17/17 Unknown History Cephalexin [Keflex] 500 mg PO BID #6 capsule 06/20/17 Unknown Rx Furosemide [Lasix] 40 mg PO DAILY #60 06/20/17 06/17/17 2 Days Ago Rx ~06/06/17 Review of Systems Constitutional: no weight loss, no weight gain, no fever, no chills Ears, nose, mouth and throat: no ear pain, no ear discharge, no tinnitis, no decreased hearing, no nose pain, no nasal congestion Breasts: no change in shape, no swelling, no mass Cardiovascular: chest pain, no orthopnea, no dyspnea on exertion, no paroxysmal nocturnal dyspnea Respiratory: no cough, no cough with sputum, no excessive sputum Gastrointestinal: no nausea, no vomiting, no diarrhea, no constipation Genitourinary Female: no pelvic pain, no flank pain, no dysuria, no urinary frequency Rectal: no pain, no bleeding Musculoskeletal: no neck stiffness, no neck pain, no shooting arm pain, no arm numbness/tingling, no low back pain Integumentary: no rash, no pruritis, no redness, no sores, no wounds Neurological: no head injury, no transient paralysis, no paralysis, no weakness , no parathesias, no numbness Psychiatric: no anxiety, no memory loss, no change in sleep habits, no sleep disturbances, no insomnia, no hypersomnia Endocrine: no cold intolerance, no polyphagia, no excessive thirst, no polydipsia, no polyuria, no nocturia Hematologic/Lymphatic: no easy bruising, no easy bleeding, no lymphadenopathy, no lymphedema Allergic/Immunologic: no urticaria, no allergic rhinitis, no wheezing, no persistent infections, no anaphylaxis Exam - Constitutional Vitals: Temp Pulse Resp BP Pulse Ox 98.6 F 55 L 18 89/51 96 06/26/17 15:28 06/26/17 16:30 06/26/17 16:30 06/26/17 16:30 06/26/17 16:30 General appearance: Present: mild distress - EENT Eyes: Present: PERRL ENT: hearing intact, clear oral mucosa - Neck Neck: Present: supple, normal ROM - Respiratory Respiratory effort: normal Respiratory: bilateral: CTA - Cardiovascular Heart Sounds: Present: S1 & S2. Absent: rub, click - Extremities Extremities: pulses symmetrical, No edema Peripheral Pulses: within normal limits - Abdominal General gastrointestinal: Present: soft, non-tender, non-distended, normal bowel sounds Female genitourinary: Present: normal - Integumentary Integumentary: Present: clear, warm, dry - Musculoskeletal Musculoskeletal: gait normal, strength equal bilaterally - Psychiatric Psychiatric: appropriate mood/affect, intact judgment & insight - Neurologic Neurologic: CNII-XII intact, moves all extremities Results - Labs CBC & Chem 7: 06/26/17 15:34 06/26/17 15:34 Labs: Abnormal lab results 06/26/17 06/26/17 Range/Units 15:34 15:34 Eos % (Auto) 4.7 H (0.0-4.3) % Sodium 135 L (137-145) mmol/L Chloride 93.3 L (98-107) mmol/L BUN 43 H (7-17) mg/dL Creatinine 1.7 H (0.7-1.2) mg/dL Glucose 120 H (65-100) mg/dL Assessment and Plan - Patient Problems (1) Acute exacerbation of CHF (congestive heart failure) Current Visit: No Status: Acute Qualifiers: Heart failure type: systolic Qualified Code(s): I50.23 - Acute on chronic systolic (congestive) heart failure Plan to address problem: Strict I/O, monitor uop q shift, supplemental oxygen, daily weight, cardiology consulted in ED, (2) Acute coronary syndrome Current Visit: No Status: Acute Plan to address problem: serial cardiac enzymes, ekg, telemetry, morphine, supplemental oxygen, nitro, antiplatelet therapy (3) Nicotine dependence Current Visit: Yes Status: Acute Qualifiers: Nicotine product type: cigarettes Substance use status: in withdrawal Qualified Code(s): F17.213 - Nicotine dependence, cigarettes, with withdrawal Plan to address problem: supportive care, Pt declined to pick quit date at this time. (4) Acute renal failure Current Visit: No Status: Acute Qualifiers: Acute renal failure type: with acute tubular necrosis Qualified Code(s): N17.0 - Acute kidney failure with tubular necrosis Plan to address problem: monitor uop q shift, urine electrolytes, monitor serum creatnine, (5) DVT prophylaxis Current Visit: Yes Status: Acute Plan to address problem: SCD to BLE while in bed
--- NOTE | 2017-06-26 17:28 | XRay Report ---
FINAL REPORT PROCEDURE: Chest. TECHNIQUE: Portable AP view. HISTORY: Chest pain. COMPARISON: Chest 06/07/2017. FINDINGS: The heart size is normal. The lungs are grossly clear. There are no pleural effusions. The soft tissues and regional skeleton are unremarkable. IMPRESSION: Negative portable chest.
[2017-06-26] MEDS ORDERED: NACL 0.9% 1000 ML 1,000 ML IV ONE (17:43)
[2017-06-26] MEDS ORDERED: TYLENOL PO PRN (18:24)
[2017-06-26] MEDS ORDERED: ZOFRAN IV PRN (18:24)
[2017-06-26] MEDS ORDERED: NITROSTAT SL PRN (18:24)
[2017-06-26] MEDS ORDERED: SODIUM CHLORIDE FLUSH SYRINGE 10 ML IV PRN ×2 (18:24)
[2017-06-26] MEDS ORDERED: PROVENTIL IH PRN (18:24)
[2017-06-26] MEDS ORDERED: LOVENOX SUB-Q ONE ×2 (21:48)
[2017-06-26] MEDS ORDERED: NEURONTIN ONE (21:48)
[2017-06-26] MEDS ORDERED: LOVENOX SUB-Q SCH (22:00)
[2017-06-26] MEDS: NEURONTIN PO SCH (22:12)
[2017-06-26] MEDS: LOVENOX SUB-Q SCH (22:12)
[2017-06-26] MEDS: RANEXA ER PO SCH (22:12)
[2017-06-26] MEDS: SODIUM CHLORIDE FLUSH SYRINGE 10 ML IV SCH (22:13)
[2017-06-26] MEDS: ATIVAN PO PRN (23:37)
--- NOTE | 2017-06-27 08:31 | Progress Note ---
Assessment and Plan - Acute exacerbation of CHF (congestive heart failure) ECHO Strict I/O, monitor uop q shift, supplemental oxygen, daily weight, cardiology consulted in ED, - Acute coronary syndrome serial cardiac enzymes normal so far, morphine, supplemental oxygen, nitro, antiplatelet therapy - Nicotine dependence supportive care, Pt declined to pick quit date at this time. - Acute renal failure monitor uop q shift, urine electrolytes, Trend serum creatnine, - DVT prophylaxis anticoagulation SCD to BLE while in bed Subjective Date of service: 06/27/17 Principal diagnosis: Heart fafilure exercebation, chest pain, RAYMUNDO Interval history: still having shortness of breath. Denies any palpation Objective - Constitutional Vitals: Vital Signs - 12hr 06/26/17 06/26/17 06/26/17 20:30 20:41 20:50 Temperature Pulse Rate 61 64 69 Pulse Rate [ Apical] Respiratory 15 18 16 Rate Respiratory Rate [Neck] Blood Pressure 94/46 94/46 97/49 O2 Sat by Pulse 98 91 97 Oximetry 06/26/17 06/26/17 06/26/17 21:00 21:11 21:20 Temperature Pulse Rate 58 L 58 L 59 L Pulse Rate [ Apical] Respiratory 18 17 17 Rate Respiratory Rate [Neck] Blood Pressure 101/51 114/53 101/52 O2 Sat by Pulse 96 95 Oximetry 06/26/17 06/26/17 06/26/17 21:30 21:40 22:32 Temperature Pulse Rate 69 65 65 Pulse Rate [ Apical] Respiratory 21 25 H Rate Respiratory Rate [Neck] Blood Pressure 100/50 103/47 O2 Sat by Pulse 96 Oximetry 06/26/17 06/26/17 06/26/17 22:58 23:11 23:16 Temperature Pulse Rate Pulse Rate [ 88 Apical] Respiratory 20 20 Rate Respiratory 20 Rate [Neck] Blood Pressure O2 Sat by Pulse 98 Oximetry 06/27/17 06/27/17 00:12 04:38 Temperature 98.3 F 98.1 F Pulse Rate 66 73 Pulse Rate [ Apical] Respiratory 20 20 Rate Respiratory Rate [Neck] Blood Pressure 111/50 114/52 O2 Sat by Pulse 95 94 Oximetry General appearance: Present: no acute distress, well-nourished - EENT Eyes: PERRL, EOM intact Ears: bilateral: normal - Neck Neck: supple, normal ROM - Respiratory Respiratory effort: normal Respiratory: bilateral: diminished - Cardiovascular Rhythm: regular Heart Sounds: Present: S1 & S2. Absent: gallop, rub Extremities: pulses intact, No edema, normal color, Full ROM - Gastrointestinal General gastrointestinal: Present: soft, non-tender, non-distended, normal bowel sounds - Integumentary Integumentary: clear, warm, dry - Musculoskeletal Musculoskeletal: 1, strength equal bilaterally - Neurologic Neurologic: moves all extremities - Psychiatric Psychiatric: memory intact, appropriate mood/affect, intact judgment & insight - Labs CBC & Chem 7: 06/26/17 15:34 06/26/17 15:34 Labs: Abnormal lab results 06/26/17 06/26/17 Range/Units 15:34 15:34 Eos % (Auto) 4.7 H (0.0-4.3) % Sodium 135 L (137-145) mmol/L Chloride 93.3 L (98-107) mmol/L BUN 43 H (7-17) mg/dL Creatinine 1.7 H (0.7-1.2) mg/dL Glucose 120 H (65-100) mg/dL
[2017-06-27] MEDS: LOVENOX SUB-Q SCH ×2 (09:41→22:20)
[2017-06-27] MEDS: HALFPRIN EC PO SCH (09:42)
[2017-06-27] MEDS: PLAVIX PO SCH (09:42)
[2017-06-27] MEDS: RANEXA ER PO SCH ×2 (09:42→22:20)
[2017-06-27] MEDS: PROTONIX PO SCH (09:42)
[2017-06-27] MEDS: SODIUM CHLORIDE FLUSH SYRINGE 10 ML IV SCH ×2 (09:47→22:21)
[2017-06-27] MEDS ORDERED: CYMBALTA PO SCH (10:00)
--- NOTE | 2017-06-27 13:33 | Consultation ---
History of Present Illness Consult date: 06/27/17 Consult reason: chest pain History of present illness: This is a 66yr old woman with a history of coronary artery disease and ischemic cardiomyopathy. Patient underwent angioplasty and stenting of the chronic total occlusion of the right coronary artery 4 weeks ago at [facility]. Left ventricular systolic function was moderately reduced, 35-40% on cardiac catheterization 3 months ago. Since then, she has been fully compliant with her dual oral antiplatelet therapy of aspirin and Plavix. Patient presented with chest pain and hypotension secondary to taking nitroglycerin. Patient noted with acute renal failure, creatinine 1.7 on presentation. A cardiac consultation is requested. Currently, patient has no chest pain or shortness of breath. There is no lower extremity edema. Chest x-ray is negative. ECG is normal sinus rhythm, with old inferior Q waves unchanged from her old EKG. No acute ST or T-wave abnormalities. Past History Past Medical History: acute [place], CAD, heart failure, hypertension Social history: , lives with family Family history: hypertension Medications and Allergies Allergies Allergy/AdvReac Type Severity Reaction Status Date / Time No Known Allergies Allergy Unverified 06/17/17 11:29 Home Medications Medication Instructions Recorded Confirmed Last Taken Type Losartan [Cozaar] 50 mg PO QDAY #30 tablet 12/30/15 06/27/17 2 Days Ago Rx ~06/06/17 Metoprolol [Lopressor TAB] 50 mg PO BID 10/26/16 06/27/17 2 Days Ago History ~06/06/17 Aspirin EC [Aspirin Enteric Coated 81 mg PO DAILY #30 tablet 03/01/17 06/27/17 2 Days Ago Rx TAB] ~06/06/17 AtorvaSTATin [Lipitor] 40 mg PO QHS #30 tablet 03/01/17 06/27/17 2 Days Ago Rx ~06/06/17 Clopidogrel [Plavix] 75 mg PO DAILY #30 tablet 03/01/17 06/27/17 2 Days Ago Rx ~06/06/17 Ranolazine ER [Ranexa ER] 1,000 mg PO BID #60 day 03/01/17 06/27/17 2 Days Ago Rx ~06/06/17 Gabapentin [Neurontin] 300 mg PO HS 05/18/17 06/27/17 2 Days Ago History ~06/06/17 ISOSORBIDE MONOnitrate [Imdur ER] 60 mg PO QDAY 05/18/17 06/27/17 2 Days Ago History ~06/06/17 HYDROcodone/APAP 7.5-325 [[place] 1 tab PO Q12H PRN 06/17/17 06/27/17 Unknown History 7.5-325 mg TAB] LORazepam [Ativan] 1 mg PO DAILY PRN 06/17/17 06/27/17 Unknown History Nitroglycerin [Nitrostat] 0.4 mg SL Q5M PRN 06/17/17 06/27/17 Unknown History Pantoprazole [Protonix TAB] 40 mg PO QDAY 06/17/17 06/27/17 Unknown History Cephalexin [Keflex] 500 mg PO BID #6 capsule 06/20/17 06/27/17 Unknown Rx Furosemide [Lasix] 40 mg PO DAILY #60 06/20/17 06/27/17 2 Days Ago Rx ~06/06/17 Potassium Chloride [Klor-Con 10] 10 meq PO DAILY 06/27/17 06/27/17 Unknown History Active Meds: Active Medications Acetaminophen (Tylenol) 650 mg PO Q4H PRN PRN Reason: Pain MILD(1-3)/Fever >100.5/AVENDANO Albuterol (Proventil) 2.5 mg IH Q4HRT PRN PRN Reason: Shortness Of Breath Aspirin (Halfprin Ec) 81 mg PO DAILY [facility] Last Admin: 06/27/17 09:42 Dose: 81 mg Atorvastatin Calcium (Lipitor) 40 mg PO QHS [facility] Last Admin: 06/26/17 22:11 Dose: 40 mg Clopidogrel Bisulfate (Plavix) 75 mg PO DAILY [facility] Last Admin: 06/27/17 09:42 Dose: 75 mg Enoxaparin Sodium (Lovenox) 120 mg 1 mg/kg (120 mg) SUB-Q Q12HR [facility] Last Admin: 06/27/17 09:41 Dose: 120 mg Gabapentin (Neurontin) 300 mg PO [facility] Last Admin: 06/26/17 22:12 Dose: 300 mg Lorazepam (Ativan) 1 mg PO DAILY PRN PRN Reason: Anxiety Last Admin: 06/26/17 23:37 Dose: 1 mg Nitroglycerin (Nitrostat) 0.4 mg SL Q5M PRN PRN Reason: Chest Pain Ondansetron HCl (Zofran) 4 mg IV Q8H PRN PRN Reason: Nausea And Vomiting Pantoprazole Sodium (Protonix) 40 mg PO QDAY [facility] Last Admin: 06/27/17 09:42 Dose: 40 mg Ranolazine (Ranexa Er) 1,000 mg PO BID [facility] Last Admin: 06/27/17 09:42 Dose: 1,000 mg Sodium Chloride (Sodium Chloride Flush Syringe 10 Ml) 10 ml IV BID [facility] Last Admin: 06/27/17 09:47 Dose: 10 ml Sodium Chloride (Sodium Chloride Flush Syringe 10 Ml) 10 ml IV PRN PRN PRN Reason: LINE FLUSH Sodium Chloride (Sodium Chloride Flush Syringe 10 Ml) 10 ml IV PRN PRN PRN Reason: LINE FLUSH Physical Examination Vital Signs Temp Pulse Resp BP Pulse Ox 98.6 F 61 24 82/35 94 06/26/17 15:28 06/26/17 15:28 06/26/17 15:28 06/26/17 15:28 06/26/17 15:28 General appearance: no acute distress HEENT: Positive: PERRL Neck: Positive: trachea midline Cardiac: Positive: Reg Rate and Rhythm Lungs: Positive: Decreased Breath Sounds Neuro: Positive: Grossly Intact Extremities: Absent: edema Results 06/26/17 15:34 06/26/17 15:34 CBC 06/26/17 Range/Units 15:34 WBC 8.0 (4.5-11.0) K/mm3 RBC 4.04 (3.65-5.03) M/mm3 Hgb 11.5 (10.1-14.3) gm/dl Hct 35.4 (30.3-42.9) % Plt Count 248 (140-440) K/mm3 Lymph # 1.9 (1.2-5.4) K/mm3 [place] # 0.5 (0.0-0.8) K/mm3 Eos # 0.4 (0.0-0.4) K/mm3 Baso # 0.1 (0.0-0.1) K/mm3 Comprehensive Metabolic Panel 06/26/17 Range/Units 15:34 Sodium 135 L (137-145) mmol/L Potassium 4.0 (3.6-5.0) mmol/L Chloride 93.3 L (98-107) mmol/L Carbon Dioxide 28 (22-30) mmol/L BUN 43 H (7-17) mg/dL Creatinine 1.7 H (0.7-1.2) mg/dL Glucose 120 H (65-100) mg/dL Calcium 9.4 (8.4-10.2) mg/dL Assessment and Plan Acute renal failure Hx of CAD [facility] 06/01/2017 at [place]: 1. patent LAD s stent 2. 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
[2017-06-27] MEDS: ATIVAN PO PRN (18:21)
[2017-06-27] MEDS: NEURONTIN PO SCH (22:20)
[2017-06-28] MEDS: ATIVAN PO PRN (00:26)
[2017-06-28 07:25] LABS: Basophils % (Auto) 0.6 % (0.0-1.8); Eosinophils # (Auto) 0.3 K/mm3 (0.0-0.4); Eosinophils % (Auto) 4.8 % (0.0-4.3); Hematocrit 35.1 % (30.3-42.9); Hemoglobin 11.9 gm/dl (10.1-14.3); Lymphocytes # (Auto) 1.6 K/mm3 (1.2-5.4); Lymphocytes % (Auto) 28.8 % (13.4-35.0); Mean Corpuscular HGB Conc 34 % (30-34); Mean Corpuscular Hemoglobin 30 pg (28-32); Mean Corpuscular Volume 87 fl (79-97); Monocytes # (Auto) 0.4 K/mm3 (0.0-0.8); Monocytes % (Auto) 7.8 % (0.0-7.3); Platelet Count 193 K/mm3 (140-440); Red Blood Count 4.05 M/mm3 (3.65-5.03); Red Cell Distribution Width 15.2 % (13.2-15.2)
[2017-06-28 07:44] LABS: Albumin 3.6 g/dL (3.9-5); Calcium 9.1 mg/dL (8.4-10.2)
[2017-06-28] MEDS: PLAVIX PO SCH (09:37)
[2017-06-28] MEDS: RANEXA ER PO SCH ×2 (09:37→22:17)
[2017-06-28] MEDS: PROTONIX PO SCH (09:37)
[2017-06-28] MEDS: LOVENOX SUB-Q SCH ×2 (09:38→22:16)
[2017-06-28] MEDS: HALFPRIN EC PO SCH (09:38)
[2017-06-28] MEDS: SODIUM CHLORIDE FLUSH SYRINGE 10 ML IV SCH ×2 (09:39→22:21)
--- NOTE | 2017-06-28 13:45 | Discharge Summary ---
Providers - Providers Date of Admission: 06/26/17 18:24 Date of discharge: 06/28/17 Attending physician: ELAINE MORGAN MD 06/26/17 Consult to Cardiac Rehabilitation [CONS] Routine Reason For Exam: Phase I 06/26/17 18:24 Consult to Cardiology [CONS] Routine Consulting Provider: BROOK REED Reason For Exam: acs Primary care physician: PAGE SY MD Hospitalization Condition: Stable Disposition: DC-30 STILL A PATIENT Exam - Constitutional Vitals: Temp Pulse Resp BP Pulse Ox 97.3 F L 106 H 20 125/74 98 06/28/17 11:11 06/28/17 11:11 06/28/17 11:11 06/28/17 11:11 06/28/17 11:11 Plan Follow up with: PAGE SY MD [Primary Care Provider] - 7 Days
--- NOTE | 2017-06-28 15:56 | Progress Note ---
Assessment and Plan Chronic stable angina Acute renal failure Hx of CAD [facility] 06/01/2017 at [place]: 1. patent LAD s stent 2. s/p revascularization of the CLINICAL STATISTICAL PROGRAMMER of the RCA using synergy drug eluting stents Hypertension Ischemic Cardiomyopathy, EF 35% Recommend: Medical therapy for ischemic cardiomyopathy and coronary artery disease as tolerated. Consider other etiologies for noncardiac chest pain. Subjective Date of service: 06/28/17 Principal diagnosis: Heart fafilure exercebation, chest pain, RAYMUNDO Interval history: Patient is sitting up in bedside chair, tearful about recurrent symptoms requiring admission. Objective Vital Signs Temp Pulse Resp Resp BP BP Pulse Ox 06/28/17 11:11 97.3 F L 106 H 20 125/74 98 06/28/17 10:00 18 06/28/17 07:35 98.2 F 91 H 18 111/56 90 06/28/17 04:43 87 134/77 97 06/28/17 04:40 98.2 F 06/27/17 23:38 97.8 F 78 20 127/56 98 06/27/17 21:00 22 22 94 06/27/17 20:30 94 06/27/17 19:34 101 H 06/27/17 19:18 85 94 06/27/17 19:16 99.0 F 69 20 131/60 96 06/27/17 16:08 81 96 - Physical Examination General: No Apparent Distress HEENT: Positive: PERRL Neck: Positive: trachea midline Cardiac: Positive: Reg Rate and Rhythm Lungs: Positive: Decreased Breath Sounds Neuro: Positive: Grossly Intact Extremities: Absent: edema - Labs and Meds Cardiac Enzymes 06/28/17 Range/Units 06:52 AST 11 (5-40) units/L CBC 06/28/17 Range/Units 06:52 WBC 5.5 (4.5-11.0) K/mm3 RBC 4.05 (3.65-5.03) M/mm3 Hgb 11.9 (10.1-14.3) gm/dl Hct 35.1 (30.3-42.9) % Plt Count 193 (140-440) K/mm3 Lymph # 1.6 (1.2-5.4) K/mm3 [place] # 0.4 (0.0-0.8) K/mm3 Eos # 0.3 (0.0-0.4) K/mm3 Baso # 0.0 (0.0-0.1) K/mm3 Comprehensive Metabolic Panel 06/28/17 Range/Units 06:52 Sodium 135 L (137-145) mmol/L Potassium 4.1 (3.6-5.0) mmol/L Chloride 93.9 L (98-107) mmol/L Carbon Dioxide 30 (22-30) mmol/L BUN 25 H (7-17) mg/dL Creatinine 1.1 (0.7-1.2) mg/dL Glucose 120 H (65-100) mg/dL Calcium 9.1 (8.4-10.2) mg/dL AST 11 (5-40) units/L ALT 13 (7-56) units/L Alkaline Phosphatase 80 (35-129) units/L Total Protein 6.6 (6.3-8.2) g/dL Albumin 3.6 L (3.9-5) g/dL
--- NOTE | 2017-06-28 16:03 | Progress Note ---
<CHERRY LEONARD - Last Filed: 06/28/17 15:54> Assessment and Plan Assessment and plan: Patient is a 66-year-old woman who presented to the emergency department with complaints of chest pain for 2 days prior to admission with worsening symptoms 24 hours prior to admission. Patient states that she has the same type of pain about once every 2 weeks. She took 4 nitroglycerin which eventually led to hypotension and acute renal failure. Atypical Chest pain Now resolved, GI workup initiated, will start with ultrasound to check for cholecystitis Acute exacerbation of CHF (congestive heart failure) Strict I/O, monitor uop q shift, supplemental oxygen, daily weight, cardiology consulted in ED, Acute coronary syndrome serial cardiac enzymes, ekg, telemetry, morphine, supplemental oxygen, nitro, antiplatelet therapy Nicotine dependence Patient counseled on cessation, supportive care Acute renal failure Improving, monitor uop q shift, urine electrolytes, monitor serum creatnine, DVT prophylaxis Lovenox History Interval history: Patient seen and examined. She has no new complaints at this time, chest pain has resolved. Labs and nursing notes reviewed. Hospitalist Physical - Physical exam Narrative exam: General appearance: Present: no acute distress, well-nourished - EENT Eyes: Present: PERRL, EOM intact ENT: hearing intact, clear oral mucosa - Neck Present: supple, normal ROM - Respiratory Respiratory effort: normal Respiratory: bilateral: CTA - Cardiovascular Rhythm: regular Heart Sounds: Present: S1 & S2 - Extremities Extremities: no ischemia, No edema - Abdominal General gastrointestinal: soft, non-tender, non-distended - Integumentary Integumentary: Present: clear, warm, dry - Psychiatric Psychiatric: appropriate mood/affect, intact judgment & insight, cooperative - Neurologic Neurologic: CNII-XII intact, moves all extremities - Constitutional Vitals: Temp Pulse Resp BP Pulse Ox 97.3 F L 106 H 20 125/74 98 06/28/17 11:11 06/28/17 11:11 06/28/17 11:11 06/28/17 11:11 06/28/17 11:11 Results - Labs CBC & Chem 7: 06/28/17 06:52 06/28/17 06:52 Labs: Laboratory Last Values WBC 5.5 K/mm3 (4.5-11.0) 06/28/17 06:52 RBC 4.05 M/mm3 (3.65-5.03) 06/28/17 06:52 Hgb 11.9 gm/dl (10.1-14.3) 06/28/17 06:52 Hct 35.1 % (30.3-42.9) 06/28/17 06:52 MCV 87 fl (79-97) 06/28/17 06:52 MCH 30 pg (28-32) 06/28/17 06:52 MCHC 34 % (30-34) 06/28/17 06:52 RDW 15.2 % (13.2-15.2) 06/28/17 06:52 Plt Count 193 K/mm3 (140-440) 06/28/17 06:52 Lymph % (Auto) 28.8 % (13.4-35.0) 06/28/17 06:52 [place] % (Auto) 7.8 % (0.0-7.3) H 06/28/17 06:52 Eos % (Auto) 4.8 % (0.0-4.3) H 06/28/17 06:52 Baso % (Auto) 0.6 % (0.0-1.8) 06/28/17 06:52 Lymph # 1.6 K/mm3 (1.2-5.4) 06/28/17 06:52 [place] # 0.4 K/mm3 (0.0-0.8) 06/28/17 06:52 Eos # 0.3 K/mm3 (0.0-0.4) 06/28/17 06:52 Baso # 0.0 K/mm3 (0.0-0.1) 06/28/17 06:52 Seg Neutrophils % 58.0 % (40.0-70.0) 06/28/17 06:52 Seg Neutrophils # 3.2 K/mm3 (1.8-7.7) 06/28/17 06:52 Sodium 135 mmol/L (137-145) L 06/28/17 06:52 Potassium 4.1 mmol/L (3.6-5.0) 06/28/17 06:52 Chloride 93.9 mmol/L (98-107) L 06/28/17 06:52 Carbon Dioxide 30 mmol/L (22-30) 06/28/17 06:52 Anion Gap 15 mmol/L 06/28/17 06:52 BUN 25 mg/dL (7-17) H 06/28/17 06:52 Creatinine 1.1 mg/dL (0.7-1.2) 06/28/17 06:52 Estimated GFR 50 ml/min 06/28/17 06:52 BUN/Creatinine Ratio 23 % 06/28/17 06:52 Glucose 120 mg/dL (65-100) H 06/28/17 06:52 Calcium 9.1 mg/dL (8.4-10.2) 06/28/17 06:52 Total Bilirubin 0.40 mg/dL (0.1-1.2) 06/28/17 06:52 AST 11 units/L (5-40) 06/28/17 06:52 ALT 13 units/L (7-56) 06/28/17 06:52 Alkaline Phosphatase 80 units/L (35-129) 06/28/17 06:52 Troponin T < 0.010 ng/mL (0.00-0.029) 06/27/17 00:59 NT-Pro-B Natriuret Pep 415.5 pg/mL (0-900) 06/26/17 16:42 Total Protein 6.6 g/dL (6.3-8.2) 06/28/17 06:52 Albumin 3.6 g/dL (3.9-5) L 06/28/17 06:52 Albumin/Globulin Ratio 1.2 % 06/28/17 06:52 <ELAINE MORGAN M - Last Filed: 06/29/17 07:20> Assessment and Plan Assessment and plan: I saw and evaluated the patient. I agree with the findings and the plan of care as documented in the PA's note, with the following corrections and additions. Patient didn't have ACS at this time. Patient is being worked up for possible cholelithiasis/cholecystistis and will follow the results. Surgery consult. Hospitalist Physical - Constitutional Vitals: Temp Pulse Resp BP Pulse Ox 97.9 F 73 20 100/51 100 06/29/17 01:22 06/29/17 06:51 06/29/17 01:22 06/29/17 01:22 06/29/17 01:22 Results - Labs CBC & Chem 7: 06/29/17 05:45 06/29/17 05:45 Labs: Laboratory Last Values WBC 6.7 K/mm3 (4.5-11.0) 06/29/17 05:45 RBC 3.88 M/mm3 (3.65-5.03) 06/29/17 05:45 Hgb 11.5 gm/dl (10.1-14.3) 06/29/17 05:45 Hct 33.3 % (30.3-42.9) 06/29/17 05:45 MCV 86 fl (79-97) 06/29/17 05:45 MCH 30 pg (28-32) 06/29/17 05:45 MCHC 35 % (30-34) H 06/29/17 05:45 RDW 15.1 % (13.2-15.2) 06/29/17 05:45 Plt Count 209 K/mm3 (140-440) 06/29/17 05:45 Lymph % (Auto) 28.5 % (13.4-35.0) 06/29/17 05:45 [place] % (Auto) 7.8 % (0.0-7.3) H 06/29/17 05:45 Eos % (Auto) 4.7 % (0.0-4.3) H 06/29/17 05:45 Baso % (Auto) 0.7 % (0.0-1.8) 06/29/17 05:45 Lymph # 1.9 K/mm3 (1.2-5.4) 06/29/17 05:45 [place] # 0.5 K/mm3 (0.0-0.8) 06/29/17 05:45 Eos # 0.3 K/mm3 (0.0-0.4) 06/29/17 05:45 Baso # 0.0 K/mm3 (0.0-0.1) 06/29/17 05:45 Seg Neutrophils % 58.3 % (40.0-70.0) 06/29/17 05:45 Seg Neutrophils # 3.9 K/mm3 (1.8-7.7) 06/29/17 05:45 Sodium 136 mmol/L (137-145) L 06/29/17 05:45 Potassium 4.7 mmol/L (3.6-5.0) 06/29/17 05:45 Chloride 97.2 mmol/L (98-107) L 06/29/17 05:45 Carbon Dioxide 33 mmol/L (22-30) H 06/29/17 05:45 Anion Gap 11 mmol/L 06/29/17 05:45 BUN 21 mg/dL (7-17) H 06/29/17 05:45 Creatinine 1.2 mg/dL (0.7-1.2) 06/29/17 05:45 Estimated GFR 45 ml/min 06/29/17 05:45 BUN/Creatinine Ratio 18 % 06/29/17 05:45 Glucose 118 mg/dL (65-100) H 06/29/17 05:45 Calcium 9.4 mg/dL (8.4-10.2) 06/29/17 05:45 Total Bilirubin 0.50 mg/dL (0.1-1.2) 06/29/17 05:45 AST 12 units/L (5-40) 06/29/17 05:45 ALT 13 units/L (7-56) 06/29/17 05:45 Alkaline Phosphatase 74 units/L (35-129) 06/29/17 05:45 Troponin T < 0.010 ng/mL (0.00-0.029) 06/27/17 00:59 NT-Pro-B Natriuret Pep 415.5 pg/mL (0-900) 06/26/17 16:42 Total Protein 6.4 g/dL (6.3-8.2) 06/29/17 05:45 Albumin 3.5 g/dL (3.9-5) L 06/29/17 05:45 Albumin/Globulin Ratio 1.2 % 06/29/17 05:45
[2017-06-28] MEDS ORDERED: NON-FORMULARY (Duloxetine Hcl [Duloxetine] 60 MG) PO SCH (19:00)
[2017-06-28] MEDS ORDERED: LOPRESSOR PO SCH (22:00)
[2017-06-28] MEDS: CYMBALTA PO SCH (22:17)
[2017-06-28] MEDS: NEURONTIN PO SCH (22:17)
[2017-06-28] MEDS: LOPRESSOR PO SCH (22:18)
[2017-06-29 06:08] LABS: Basophils % (Auto) 0.7 % (0.0-1.8); Eosinophils # (Auto) 0.3 K/mm3 (0.0-0.4); Eosinophils % (Auto) 4.7 % (0.0-4.3); Hematocrit 33.3 % (30.3-42.9); Hemoglobin 11.5 gm/dl (10.1-14.3); Lymphocytes # (Auto) 1.9 K/mm3 (1.2-5.4); Lymphocytes % (Auto) 28.5 % (13.4-35.0); Mean Corpuscular HGB Conc 35 % (30-34); Mean Corpuscular Hemoglobin 30 pg (28-32); Mean Corpuscular Volume 86 fl (79-97); Monocytes # (Auto) 0.5 K/mm3 (0.0-0.8); Monocytes % (Auto) 7.8 % (0.0-7.3); Platelet Count 209 K/mm3 (140-440); Red Blood Count 3.88 M/mm3 (3.65-5.03); Red Cell Distribution Width 15.1 % (13.2-15.2)
[2017-06-29 06:57] LABS: Albumin 3.5 g/dL (3.9-5); Calcium 9.4 mg/dL (8.4-10.2)
--- NOTE | 2017-06-29 09:41 | Progress Note ---
Assessment and Plan Epigastric pain Acute renal failure Hx of CAD [facility] 06/01/2017 at [place]: 1. patent LAD s stent 2. 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 Consider other etiologies for noncardiac chest pain. Subjective Date of service: 06/29/17 Principal diagnosis: Heart fafilure exercebation, chest pain, RAYMUNDO Interval history: Patient has no cardiac complaints. Objective Vital Signs Temp Pulse Resp BP BP Pulse Ox 06/29/17 07:46 97.7 F 73 18 106/61 94 06/29/17 06:51 73 06/29/17 06:06 97.9 F 75 20 111/62 90 06/29/17 01:22 97.9 F 73 20 100/51 100 06/29/17 00:52 74 93 06/29/17 00:50 72 94 06/28/17 22:18 84 146/72 06/28/17 20:06 97.9 F 84 146/72 98 06/28/17 16:56 98.2 F 96 H 20 155/80 99 06/28/17 11:11 97.3 F L 106 H 20 125/74 98 06/28/17 10:00 86 18 94 - Physical Examination General: No Apparent Distress HEENT: Positive: PERRL Cardiac: Positive: Reg Rate and Rhythm Neuro: Positive: Grossly Intact Extremities: Absent: edema - Labs and Meds Cardiac Enzymes 06/29/17 Range/Units 05:45 AST 12 (5-40) units/L CBC 06/29/17 Range/Units 05:45 WBC 6.7 (4.5-11.0) K/mm3 RBC 3.88 (3.65-5.03) M/mm3 Hgb 11.5 (10.1-14.3) gm/dl Hct 33.3 (30.3-42.9) % Plt Count 209 (140-440) K/mm3 Lymph # 1.9 (1.2-5.4) K/mm3 [place] # 0.5 (0.0-0.8) K/mm3 Eos # 0.3 (0.0-0.4) K/mm3 Baso # 0.0 (0.0-0.1) K/mm3 Comprehensive Metabolic Panel 06/29/17 Range/Units 05:45 Sodium 136 L (137-145) mmol/L Potassium 4.7 (3.6-5.0) mmol/L Chloride 97.2 L (98-107) mmol/L Carbon Dioxide 33 H (22-30) mmol/L BUN 21 H (7-17) mg/dL Creatinine 1.2 (0.7-1.2) mg/dL Glucose 118 H (65-100) mg/dL Calcium 9.4 (8.4-10.2) mg/dL AST 12 (5-40) units/L ALT 13 (7-56) units/L Alkaline Phosphatase 74 (35-129) units/L Total Protein 6.4 (6.3-8.2) g/dL Albumin 3.5 L (3.9-5) g/dL
[2017-06-29] MEDS ORDERED: IMDUR PO SCH (10:00)
--- NOTE | 2017-06-29 12:01 | Consultation ---
History of Present Illness Consult date: 06/29/17 Chief complaint: chest pain - History of present illness History of present illness: 66 yo F with hx of CAD s/p stent last month, CHF, currently on plavix/asa presented to ER with c/o midsternal chest pain radiating to her right chest, vice-like, 5/10 in nature. The pain comes on suddenly and goes away gradually. It is not associated with any activity, food. It comes on every 2 weeks. She denies f/c, n/v, abd pain, c/d, hematochezia, melena. Past History Past Medical History: acute [place], CAD, heart failure, hypertension Past Surgical History: Other (Cardiac Stent, tubal ligation) Social history: , lives with family Family history: hypertension Medications and Allergies Allergies Allergy/AdvReac Type Severity Reaction Status Date / Time No Known Allergies Allergy Unverified 06/17/17 11:29 Home Medications Medication Instructions Recorded Confirmed Last Taken Type Losartan [Cozaar] 50 mg PO QDAY #30 tablet 12/30/15 06/27/17 2 Days Ago Rx ~06/06/17 Metoprolol [Lopressor TAB] 50 mg PO BID 10/26/16 06/27/17 2 Days Ago History ~06/06/17 Aspirin EC [Aspirin Enteric Coated 81 mg PO DAILY #30 tablet 03/01/17 06/27/17 2 Days Ago Rx TAB] ~06/06/17 AtorvaSTATin [Lipitor] 40 mg PO QHS #30 tablet 03/01/17 06/27/17 2 Days Ago Rx ~06/06/17 Clopidogrel [Plavix] 75 mg PO DAILY #30 tablet 03/01/17 06/27/17 2 Days Ago Rx ~06/06/17 Ranolazine ER [Ranexa ER] 1,000 mg PO BID #60 day 03/01/17 06/27/17 2 Days Ago Rx ~06/06/17 Gabapentin [Neurontin] 300 mg PO HS 05/18/17 06/27/17 2 Days Ago History ~06/06/17 ISOSORBIDE MONOnitrate [Imdur ER] 60 mg PO QDAY 05/18/17 06/27/17 2 Days Ago History ~06/06/17 HYDROcodone/APAP 7.5-325 [[place] 1 tab PO Q12H PRN 06/17/17 06/27/17 Unknown History 7.5-325 mg TAB] LORazepam [Ativan] 1 mg PO DAILY PRN 06/17/17 06/27/17 Unknown History Nitroglycerin [Nitrostat] 0.4 mg SL Q5M PRN 06/17/17 06/27/17 Unknown History Pantoprazole [Protonix TAB] 40 mg PO QDAY 06/17/17 06/27/17 Unknown History Cephalexin [Keflex] 500 mg PO BID #6 capsule 06/20/17 06/27/17 Unknown Rx Furosemide [Lasix] 40 mg PO DAILY #60 06/20/17 06/27/17 2 Days Ago Rx ~06/06/17 Potassium Chloride [Klor-Con 10] 10 meq PO DAILY 06/27/17 06/27/17 Unknown History Duloxetine HCl [DULoxetine] 60 mg PO DAILY 06/28/17 06/28/17 06/25/17 History 60 mg Active Meds: Active Medications Acetaminophen (Tylenol) 650 mg PO Q4H PRN PRN Reason: Pain MILD(1-3)/Fever >100.5/AVENDANO Albuterol (Proventil) 2.5 mg IH Q4HRT PRN PRN Reason: Shortness Of Breath Aspirin (Halfprin Ec) 81 mg PO DAILY [facility] Last Admin: 06/28/17 09:38 Dose: 81 mg Atorvastatin Calcium (Lipitor) 40 mg PO QHS [facility] Last Admin: 06/28/17 22:17 Dose: 40 mg Clopidogrel Bisulfate (Plavix) 75 mg PO DAILY [facility] Last Admin: 06/28/17 09:37 Dose: 75 mg Duloxetine HCl (Cymbalta) 60 mg PO QDAY [facility] Last Admin: 06/28/17 22:17 Dose: 60 mg Enoxaparin Sodium (Lovenox) 120 mg 1 mg/kg (120 mg) SUB-Q Q12HR [facility] Last Admin: 06/28/17 22:16 Dose: 120 mg Gabapentin (Neurontin) 300 mg PO HS [facility] Last Admin: 06/28/17 22:17 Dose: 300 mg Isosorbide Mononitrate (Imdur) 60 mg PO QDAY [facility] Lorazepam (Ativan) 1 mg PO DAILY PRN PRN Reason: Anxiety Last Admin: 06/28/17 00:26 Dose: 1 mg Metoprolol Tartrate (Lopressor) 50 mg PO BID [facility] Last Admin: 06/28/17 22:18 Dose: 50 mg Nitroglycerin (Nitrostat) 0.4 mg SL Q5M PRN PRN Reason: Chest Pain Ondansetron HCl (Zofran) 4 mg IV Q8H PRN PRN Reason: Nausea And Vomiting Pantoprazole Sodium (Protonix) 40 mg PO QDAY [facility] Last Admin: 06/28/17 09:37 Dose: 40 mg Ranolazine (Ranexa Er) 1,000 mg PO BID [facility] Last Admin: 06/28/17 22:17 Dose: 1,000 mg Sodium Chloride (Sodium Chloride Flush Syringe 10 Ml) 10 ml IV BID [facility] Last Admin: 06/28/17 22:21 Dose: 10 ml Sodium Chloride (Sodium Chloride Flush Syringe 10 Ml) 10 ml IV PRN PRN PRN Reason: LINE FLUSH Sodium Chloride (Sodium Chloride Flush Syringe 10 Ml) 10 ml IV PRN PRN PRN Reason: LINE FLUSH Review of Systems All systems: negative (10 point ROS performed and negative except for that listed in HPI) Exam Vital Signs Temp Pulse Resp BP Pulse Ox 98.6 F 61 24 82/35 94 06/26/17 15:28 06/26/17 15:28 06/26/17 15:28 06/26/17 15:28 06/26/17 15:28 Narrative exam: Gen: AAOx3. NAD ENT: no scleral icterus or conjunctival pallor CV: S1, S2+ Resp: even and unlabored Abd: soft, NT, ND. Well-healed midline infraumbilical surgical scar Ext: no c/c/e Results - Labs 06/29/17 05:45 06/29/17 05:45 Abnormal lab results 06/29/17 06/29/17 Range/Units 05:45 05:45 MCHC 35 H (30-34) % Schley % (Auto) 7.8 H (0.0-7.3) % Eos % (Auto) 4.7 H (0.0-4.3) % Sodium 136 L (137-145) mmol/L Chloride 97.2 L (98-107) mmol/L Carbon Dioxide 33 H (22-30) mmol/L BUN 21 H (7-17) mg/dL Glucose 118 H (65-100) mg/dL Albumin 3.5 L (3.9-5) g/dL Diabetes panel 06/29/17 Range/Units 05:45 Sodium 136 L (137-145) mmol/L Potassium 4.7 (3.6-5.0) mmol/L Chloride 97.2 L (98-107) mmol/L Carbon Dioxide 33 H (22-30) mmol/L BUN 21 H (7-17) mg/dL Creatinine 1.2 (0.7-1.2) mg/dL Glucose 118 H (65-100) mg/dL Calcium 9.4 (8.4-10.2) mg/dL AST 12 (5-40) units/L ALT 13 (7-56) units/L Alkaline Phosphatase 74 (35-129) units/L Total Protein 6.4 (6.3-8.2) g/dL Albumin 3.5 L (3.9-5) g/dL Calcium panel 06/29/17 Range/Units 05:45 Calcium 9.4 (8.4-10.2) mg/dL Albumin 3.5 L (3.9-5) g/dL Pituitary panel 06/29/17 Range/Units 05:45 Sodium 136 L (137-145) mmol/L Potassium 4.7 (3.6-5.0) mmol/L Chloride 97.2 L (98-107) mmol/L Carbon Dioxide 33 H (22-30) mmol/L BUN 21 H (7-17) mg/dL Creatinine 1.2 (0.7-1.2) mg/dL Glucose 118 H (65-100) mg/dL Calcium 9.4 (8.4-10.2) mg/dL Adrenal panel 06/29/17 Range/Units 05:45 Sodium 136 L (137-145) mmol/L Potassium 4.7 (3.6-5.0) mmol/L Chloride 97.2 L (98-107) mmol/L Carbon Dioxide 33 H (22-30) mmol/L BUN 21 H (7-17) mg/dL Creatinine 1.2 (0.7-1.2) mg/dL Glucose 118 H (65-100) mg/dL Calcium 9.4 (8.4-10.2) mg/dL Total Bilirubin 0.50 (0.1-1.2) mg/dL AST 12 (5-40) units/L ALT 13 (7-56) units/L Alkaline Phosphatase 74 (35-129) units/L Total Protein 6.4 (6.3-8.2) g/dL Albumin 3.5 L (3.9-5) g/dL - Imaging US - abdomen: report reviewed, image reviewed Assessment and Plan 66-year-old female with atypical chest pain, rule out gallbladder source 1. Abdominal ultrasound imaging reviewed. No stones, sludge, gallbladder wall thickening, pericholecystic fluid to suggest gallbladder pathology. The official radiology read is still pending 2. Continue cardiac diet as patient is currently tolerating without difficulty 3. Continue cardiac meds 4. Recommend outpatient follow-up with gastroenterology 5. May be discharged from a surgical standpoint Discussed with Dr. Lopez Thank you for this consultation, please call with any questions or concerns
[2017-06-29] MEDS: CYMBALTA PO SCH (12:14)
[2017-06-29] MEDS: HALFPRIN EC PO SCH (12:15)
[2017-06-29] MEDS: LOPRESSOR PO SCH (12:16)
[2017-06-29] MEDS: PLAVIX PO SCH (12:17)
[2017-06-29] MEDS: PROTONIX PO SCH (12:18)
[2017-06-29] MEDS: RANEXA ER PO SCH (12:19)
[2017-06-29] MEDS: LOVENOX SUB-Q SCH (12:20)
[2017-06-29] MEDS: SODIUM CHLORIDE FLUSH SYRINGE 10 ML IV SCH (12:20)
--- NOTE | 2017-06-29 13:22 | Discharge Summary ---
Providers - Providers Date of Admission: 06/26/17 18:24 Date of discharge: 06/29/17 Attending physician: ELAINE MORGAN MD 06/26/17 Consult to Cardiac Rehabilitation [CONS] Routine Reason For Exam: Phase I 06/26/17 18:24 Consult to Cardiology [CONS] Routine Consulting Provider: BROOK REED Reason For Exam: acs 06/28/17 14:58 Consult to Physician [CONS] Routine Comment: Consulting Provider: LEONARD MEHTA Physician Instructions: Reason For Exam: possible cholecystitis Primary care physician: ELECTRICAL LOGGING ENGINEER Hospitalization Condition: Stable Hospital course: Patient is a 66-year-old woman who presented to the emergency department with complaints of chest pain for 2 days prior to admission with worsening symptoms 24 hours prior to admission. Patient states that she has the same type of pain about once every 2 weeks. She took 4 nitroglycerin which eventually led to hypotension and acute renal failure. Serial cardiac enzymes were negative. Cardiology services was consulted and determined that no further workup recommended at this time. Patient's chest pain was atypical and etiology is likely GI in nature. Patient will resume her cardiac regimen on discharge. Patient was initiated on IV fluids after which her blood pressure normalized and her kidney function returned to baseline. Patient was clinically and hemodynamically stable for discharge and instructed to follow up with primary care provider within 1 week of discharged. Patient will also follow-up with GI as an outpatient within 2 weeks of discharge. Discharge diagnoses Atypical chest pain Acute exacerbation of CHF Acute coronary syndrome Nicotine dependence Acute renal failure Disposition: - TO HOME OR SELFCARE Time spent for discharge: 32 minutes Core Measure Documentation - Palliative Care Palliative Care/ Comfort Measures: Not Applicable - Core Measures Any of the following diagnoses?: none Exam - Physical Exam Narrative exam: General appearance: Present: no acute distress, well-nourished - EENT Eyes: Present: PERRL, EOM intact ENT: hearing intact, clear oral mucosa - Neck Present: supple, normal ROM - Respiratory Respiratory effort: normal Respiratory: bilateral: CTA - Cardiovascular Rhythm: regular Heart Sounds: Present: S1 & S2 - Extremities Extremities: no ischemia, No edema - Abdominal General gastrointestinal: soft, non-tender, non-distended - Integumentary Integumentary: Present: clear, warm, dry - Psychiatric Psychiatric: appropriate mood/affect, intact judgment & insight, cooperative - Neurologic Neurologic: CNII-XII intact, moves all extremities - Constitutional Vitals: Temp Pulse Resp BP Pulse Ox 97.7 F 73 18 106/61 94 06/29/17 07:46 06/29/17 07:46 06/29/17 07:46 06/29/17 07:46 06/29/17 07:46 Plan Follow up with: PAGE SY MD [Primary Care Provider] - 7 Days CHANTEL ZAPATA MD [Staff Physician] - 14 Days BROOK REED MD [Staff Physician] - 14 Days
[2017-06-29 15:43] VITALS: BP 115/67
--- NOTE | 2017-06-30 09:39 | Ultrasound Report ---
RIGHT UPPER QUADRANT ABDOMINAL ULTRASOUND: 06/29/17 CLINICAL: Right upper quadrant pain. FINDINGS: High-resolution ultrasound demonstrated a normal size liver with mild diffuse increased echogenicity. The gallbladder is partially contracted with a 2 mm thick wall. No calculi are identified. Normal intrahepatic and extra hepatic bile ducts. The common bile duct measures 4.2 mm diameter. Limited imaging of the pancreas. No signs of pancreatitis or pseudocyst. Normal upper abdominal aorta. The right kidney measures 12.5 x 6.0 x 5.0cm.Moderate renal parenchymal thinning and mild increased echogenicity of the kidney. No renal calculus, mass or cyst identified. No ascites or mass. IMPRESSION: Normal biliary tract with no cholelithiasis and no signs of acute cholecystitis.
== END 2017-06-29 15:36 | disposition home or self-care (01) | DRG 682 ==
LOC: ED 15:17 → 4A 18:24
PROVIDERS: ADMIT Internal Medicine; ATTEND Internal Medicine
DX: N17.0 Acute kidney failure with tubular necrosis (principal); I50.23 Acute on chronic systolic (congestive) heart failure; I24.9 Acute ischemic heart disease, unspecified; I11.0 Hypertensive heart disease with heart failure; F17.200 Nicotine dependence, unspecified, uncomplicated; F41.9 Anxiety disorder, unspecified; M19.90 Unspecified osteoarthritis, unspecified site; I95.9 Hypotension, unspecified; I25.5 Ischemic cardiomyopathy; I25.10 Atherosclerotic heart disease of native coronary artery without angina pectoris; E66.9 Obesity, unspecified; Z68.39 Body mass index [BMI] 39.0-39.9, adult; Z82.49 Family history of ischemic heart disease and other diseases of the circulatory system; Z95.5 Presence of coronary angioplasty implant and graft; Z79.899 Other long term (current) drug therapy; I25.2 Old myocardial infarction
CPT/HCPCS: 36415; 71045; 76705; 80048; 80053; 83880; 84484; 85025; 93005; 93010; 99406; A9270-GY; J1650; J2270; J2405; J7030

== ENCOUNTER 2018-05-23 16:31 | Emergency (ER) | payer MEDICARE ==
[2018-05-23] MEDS ORDERED: NACL 0.9% 500 ML 500 ML IV ONE ×3 (17:40→20:00)
[2018-05-23 18:10] LABS: Basophils # (Auto) 0.1 K/mm3 (0.0-0.1); Basophils % (Auto) 1.2 % (0.0-1.8); Eosinophils # (Auto) 0.2 K/mm3 (0.0-0.4); Eosinophils % (Auto) 2.5 % (0.0-4.3); Hematocrit 37.5 % (30.3-42.9); Hemoglobin 12.3 gm/dl (10.1-14.3); Lymphocytes # (Auto) 1.7 K/mm3 (1.2-5.4); Lymphocytes % (Auto) 21.7 % (13.4-35.0); Mean Corpuscular HGB Conc 33 % (30-34); Mean Corpuscular Volume 82 fl (79-97); Monocytes # (Auto) 0.5 K/mm3 (0.0-0.8); Monocytes % (Auto) 6.2 % (0.0-7.3); Platelet Count 271 K/mm3 (140-440); Red Blood Count 4.55 M/mm3 (3.65-5.03); Red Cell Distribution Width 18.2 % (13.2-15.2)
[2018-05-23 18:49] LABS: Calcium 8.9 mg/dL (8.4-10.2)
--- NOTE | 2018-05-23 19:20 | XRay Report ---
PROCEDURE: XR CHEST 1V AP TECHNIQUE: Frontal portable view of the chest HISTORY: dyspnea COMPARISONS: Chest x-ray dated February 01, 2018. The report of that study is not available for bryant rush at the time of this dictation. FINDINGS: Visualization of fine detail in the lung bases is limited by artifact created by large body habitus. There is prominence of the interstitial markings in both lungs similar in appearance to the previous study. There is a possible retrocardiac density in the right medial lung base. Differential diagnosis includ es artifact. There is no evidence of pneumothorax or pleural fluid collection. The cardiac silhouette is enlarged. The thoracic aorta and bony structures are unremarkable. Visualization of detail of the thoracic spin e is limited. IMPRESSION: 1. Study degraded by artifact created by large body habitus. 2. Possible retrocardiac density right medial lung base. Differential diagnosis includes artifact. CT chest would be helpful for further evaluation. 3. Stable enlarged cardiac silhouette. This document is electronically signed by Angella Lopez MD., May 23 2018 07:18:30 PM ET
[2018-05-23 19:54] LABS: Bacteria,Urine 1+ /HPF (Negative); Bilirubin,Urine NEG (Negative); Blood,Urine NEG (Negative); Color,Urine Amber (Yellow); Granular Casts,Urine 4 /LPF; Hyaline Casts,Urine 19 /LPF; Mucus,Urine FEW /HPF; Protein,Urine <15 mg/dL mg/dL (Negative)
--- NOTE | 2018-05-23 19:58 | Emergency Department Report ---
<KIRILL NG - Last Filed: 05/23/18 19:58> ED General Adult HPI - General Chief complaint: Dizziness Stated complaint: HYPOTENSION/LIGHT HEADED Time Seen by Provider: 05/23/18 17:34 Source: patient Mode of arrival: Stretcher Limitations: No Limitations - History of Present Illness Initial comments: Patient is a 67-year-old female who is presenting with hypotension from her nephrologists office. Patient states that her issue started approximately a week ago when she began to have some shortness of breath with ex ertion and leg swelling. Patient does have a history of mild CHF and her seating captain restarted her Lasix. The patient did diurese however her urinary frequency has dropped over the last several days and her seating captain thought that it may be a good idea for her to see nephrology to rule out kidney damage secondary to the Lasix. Patient states that her leg swelling has continued despite the Lasix At the nephrology office the patient's blood pressure was in the 70s sys. And the patient was experiencing dizziness. Severity scale (0 -10): 0 - Related Data Home Medications Medication Instructions Recorded Confirmed Last Taken Clopidogrel Bisulfate [Plavix] 1 tab PO DAILY 05/23/18 05/23/18 Unknown HYDROcodone/ACETAMINOPHEN 1 tab PO Q6HR 05/23/18 05/23/18 Unknown [Hydrocodone-Acetamin 7.5-300] Nitroglycerin [Nitrostat] 1 tab SL Q5MIN 05/23/18 05/23/18 Unknown Pantoprazole [Protonix] 40 mg PO QDAY 05/23/18 05/23/18 Unknown Ranolazine [Ranexa] 1 tab PO BID 05/23/18 05/23/18 Unknown Tizanidine HCl [tiZANidine] 1 - 2 tab PO DAILY PRN 05/23/18 05/23/18 Unknown Umeclidinium [place] [Incruse 1 puff IH DAILY 05/23/18 05/23/18 Unknown Ellipta] metOLazone [Metolazone] 5 mg PO DAILY 05/23/18 05/23/18 Unknown Allergies Allergy/AdvReac Type Severity Reaction Status Date / Time levofloxacin [From Levaquin] Allergy Itching Verified 02/01/18 20:36 ED Review of Systems Comment: All other systems reviewed and negative ED Past Medical Hx - Past Medical History Previous Medical History?: Yes Hx Hypertension: Yes Hx Heart Attack/AMI: Yes (x2) Hx Congestive Heart Failure: Yes Hx Diabetes: No Hx Arthritis: Yes Hx Asthma: No Hx COPD: Yes Hx HIV: No - Surgical History Hx Coronary Stent: Yes (x5) Hx Open Heart Surgery: No Additional Surgical History: cardiac stents - Social History Smoking Status: Former Smoker Substance Use Type: Alcohol - Medications Home Medications: Home Medications Medication Instructions Recorded Confirmed Last Taken Type Clopidogrel Bisulfate [Plavix] 1 tab PO DAILY 05/23/18 05/23/18 Unknown History HYDROcodone/ACETAMINOPHEN 1 tab PO Q6HR 05/23/18 05/23/18 Unknown History [Hydrocodone-Acetamin 7.5-300] Nitroglycerin [Nitrostat] 1 tab SL Q5MIN 05/23/18 05/23/18 Unknown History Pantoprazole [Protonix] 40 mg PO QDAY 05/23/18 05/23/18 Unknown History Ranolazine [Ranexa] 1 tab PO BID 05/23/18 05/23/18 Unknown History Tizanidine HCl [tiZANidine] 1 - 2 tab PO DAILY PRN 05/23/18 05/23/18 Unknown History Umeclidinium [place] [Incruse 1 puff IH DAILY 05/23/18 05/23/18 Unknown History Ellipta] metOLazone [Metolazone] 5 mg PO DAILY 05/23/18 05/23/18 Unknown History ED Physical Exam - General Limitations: No Limitations General appearance: alert, in no apparent distress - Head Head exam: Present: atraumatic, normocephalic - Eye Eye exam: Present: normal appearance - ENT ENT exam: Present: mucous membranes moist - Neck Neck exam: Present: normal inspection - Respiratory Respiratory exam: Present: normal lung sounds bilaterally. Absent: respiratory distress, wheezes, rales, rhonchi - Cardiovascular Cardiovascular Exam: Present: regular rate, normal rhythm, systolic murmur. Absent: diastolic murmur, rubs, gallop - GI/Abdominal GI/Abdominal exam: Present: soft, normal bowel sounds. Absent: distended, tenderness, guarding, rebound - Extremities Exam Extremities exam: Present: normal inspection, other (bilateral 2+ edema to the midcalf) - Back Exam Back exam: Present: normal inspection - Neurological Exam Neurological exam: Present: alert, oriented X3 - Psychiatric Psychiatric exam: Present: normal affect, normal mood - Skin Skin exam: Present: warm, dry, intact, normal color. Absent: rash ED Course - Reevaluation(s) Reevaluation #1: 05/23/18 19:57 Patient's blood pressure did improve with initial bolus of 500 mL IV fluid. Patient is to receive another bolus since her blood pressure dropped slightly after the first bolus. Review of the patient's labs patient does appear to be prerenal and likely is third spacing. Patient's intervascular volume is sl ightly depleted secondary to the Lasix. ED Medical Decision Making - Lab Data Result diagrams: 05/23/18 17:53 05/23/18 17:53 - EKG Data -: EKG Interpreted by Me - EKG Data 05/23/18 19:59 EKG shows sinus rhythm a rate of 77 axis is normal patient's intervals show a prolonged QT. There are no ST segment elevations or depressions present. Patient does have a left bundle-branch block ED Disposition Clinical Impression: Chronic renal insufficiency, Dependent edema Disposition: DC-01 TO HOME OR SELFCARE Condition: Stable Instructions: Chronic Kidney Disease (ED), Leg Edema (ED) Additional Instructions: Symptoms likely coming from excessive urination, likely secondary to increased utilization of Lasix medication. Discontinue Lasix prescription. Purchase pnla-[id number] compression stockings as we have discussed, which can be purchased at [facility], [id number], or purchased online at [employer] [facility] [employer] or a similar delivery service. Follow-up in 2-3 days for repeat checkup/evaluation. Patient may follow-up with her private rug cleaner hand, Dr. Shaila Waldrop or Kenroy Harp, or she may return to the emergency room for a repeat checkup/evaluation. If patient elects to follow up with her rug cleaner hand, please contact the office first thing in the morning, informed the office staff that we have spoken to Dr. Harp, that he would like to see you closely for outpatient follow-up, and the office staff should be able to accommodate with an appointment. If, for whatever reason, the nephrology team is not able to accommodate the patient with a close outpatient follow-up within the next 2-3 days, please return to this emergency room for a repeat checkup/evaluation. Return to the emergency room right away with new symptoms, projectile vomiting, change in mental status, confusion, inability to tolerate liquid feeds, new, w orsened or different symptoms. Referrals: DARCY HERNANDEZ [Other] - 3-5 Days GONZALEZ HARP DO [Staff Physician] - 3-5 Days YOHANA WALDROP MD [Staff Physician] - 3-5 Days <WINNIE CENTENO - Last Filed: 05/23/18 21:48> ED Review of Systems ROS: Stated complaint: HYPOTENSION/LIGHT HEADED Other details as noted in HPI ED Course Vital Signs 05/23/18 05/23/18 05/23/18 17:43 17:58 18:01 Temperature 97.4 F L Pulse Rate 80 Respiratory 22 Rate Blood Pressure 90/53 Blood Pressure [Left] O2 Sat by Pulse 96 94 96 Oximetry 05/23/18 05/23/18 05/23/18 18:15 18:31 18:45 Temperature Pulse Rate Respiratory Rate Blood Pressure 110/58 Blood Pressure [Left] O2 Sat by Pulse 97 97 96 Oximetry 05/23/18 05/23/18 19:23 19:30 Temperature 98.2 F Pulse Rate 89 Respiratory 18 15 Rate Blood Pressure Blood Pressure 111/60 [Left] O2 Sat by Pulse 99 94 Oximetry - Reevaluation(s) Reevaluation #2: 05/23/18 21:43 Patient is reassessed. Resting comfortably, and in no acute distress. Blood pressure 111/70. Patient's old charts and laboratory studies have been reviewed. She has presented multiple times for similar symptoms. I have recommended to the patient that she refrain from consuming Lasix at this time. I have recommended compression stockings for her lower extremity swelling. Urinalysis reviewed and appreciated, appears to be unchanged from baseline. Creatinine and renal tests are within patient's range of what is normal for her. Contacted her covering rug cleaner hand, Dr. Harp, and discussed her case. He is in minimal to have the patient closely follow-up in the office for a recheck. X-ray the chest interpretation is reviewed and appreciated, patient saturating well on room air, does not have crackles or rales, and does not have any acute respiratory complaints at this time, therefore, clinically do not suspect florid fluid overload in the lung bill. ED Medical Decision Making - Lab Data Result diagrams: 05/23/18 17:53 05/23/18 17:53 Vital Signs 05/23/18 05/23/18 05/23/18 17:43 17:58 18:01 Temperature 97.4 F L Pulse Rate 80 Respiratory 22 Rate Blood Pressure 90/53 Blood Pressure [Left] O2 Sat by Pulse 96 94 96 Oximetry 05/23/18 05/23/18 05/23/18 18:15 18:31 18:45 Temperature Pulse Rate Respiratory Rate Blood Pressure 110/58 Blood Pressure [Left] O2 Sat by Pulse 97 97 96 Oximetry 05/23/18 05/23/18 19:23 19:30 Temperature 98.2 F Pulse Rate 89 Respiratory 18 15 Rate Blood Pressure Blood Pressure 111/60 [Left] O2 Sat by Pulse 99 94 Oximetry Lab Results 05/23/18 05/23/18 05/23/18 Range/Units 17:53 17:53 17:53 WBC 7.8 (4.5-11.0) K/mm3 RBC 4.55 (3.65-5.03) M/mm3 Hgb 12.3 (10.1-14.3) gm/dl Hct 37.5 (30.3-42.9) % MCV 82 (79-97) fl MCH 27 L (28-32) pg MCHC 33 (30-34) % RDW 18.2 H (13.2-15.2) % Plt Count 271 (140-440) K/mm3 Lymph % (Auto) 21.7 (13.4-35.0) % Cobb % (Auto) 6.2 (0.0-7.3) % Eos % (Auto) 2.5 (0.0-4.3) % Baso % (Auto) 1.2 (0.0-1.8) % Lymph # 1.7 (1.2-5.4) K/mm3 Cobb # 0.5 (0.0-0.8) K/mm3 Eos # 0.2 (0.0-0.4) K/mm3 Baso # 0.1 (0.0-0.1) K/mm3 Seg Neutrophils % 68.4 (40.0-70.0) % Seg Neutrophils # 5.3 (1.8-7.7) K/mm3 Sodium 135 L (137-145) mmol/L Potassium 4.0 (3.6-5.0) mmol/L Chloride 97.2 L (98-107) mmol/L Carbon Dioxide 24 (22-30) mmol/L Anion Gap 18 mmol/L BUN 21 H (7-17) mg/dL Creatinine 1.4 H (0.7-1.2) mg/dL Estimated GFR 37 ml/min BUN/Creatinine Ratio 15 % Glucose 136 H (65-100) mg/dL Calcium 8.9 (8.4-10.2) mg/dL Troponin T < 0.010 (0.00-0.029) ng/mL NT-Pro-B Natriuret Pep 172.9 (0-900) pg/mL Urine Color (Yellow) Urine Turbidity (Clear) Urine pH (5.0-7.0) Ur Specific [place] (1.003-1.030) Urine Protein (Negative) mg/dL Urine Glucose (UA) (Negative) mg/dL Urine Ketones (Negative) mg/dL Urine Blood (Negative) Urine Nitrite (Negative) Urine Bilirubin (Negative) Urine Urobilinogen (<2.0) mg/dL Ur Leukocyte Esterase (Negative) Urine WBC (Auto) (0.0-6.0) /HPF Urine RBC (Auto) (0.0-6.0) /HPF U Epithel Cells (Auto) (0-13.0) /HPF Urine Bacteria (Auto) (Negative) /HPF Hyaline Casts /LPF Granular Casts /LPF Urine Mucus /HPF 05/23/18 Range/Units 19:37 WBC (4.5-11.0) K/mm3 RBC (3.65-5.03) M/mm3 Hgb (10.1-14.3) gm/dl Hct (30.3-42.9) % MCV (79-97) fl MCH (28-32) pg MCHC (30-34) % RDW (13.2-15.2) % Plt Count (140-440) K/mm3 Lymph % (Auto) (13.4-35.0) % Cobb % (Auto) (0.0-7.3) % Eos % (Auto) (0.0-4.3) % Baso % (Auto) (0.0-1.8) % Lymph # (1.2-5.4) K/mm3 Cobb # (0.0-0.8) K/mm3 Eos # (0.0-0.4) K/mm3 Baso # (0.0-0.1) K/mm3 Seg Neutrophils % (40.0-70.0) % Seg Neutrophils # (1.8-7.7) K/mm3 Sodium (137-145) mmol/L Potassium (3.6-5.0) mmol/L Chloride (98-107) mmol/L Carbon Dioxide (22-30) mmol/L Anion Gap mmol/L BUN (7-17) mg/dL Creatinine (0.7-1.2) mg/dL Estimated GFR ml/min BUN/Creatinine Ratio % Glucose (65-100) mg/dL Calcium (8.4-10.2) mg/dL Troponin T (0.00-0.029) ng/mL NT-Pro-B Natriuret Pep (0-900) pg/mL Urine Color Cathy (Yellow) Urine Turbidity Clear (Clear) Urine pH 5.0 (5.0-7.0) Ur Specific [place] 1.030 (1.003-1.030) Urine Protein <15 mg/dl (Negative) mg/dL Urine Glucose (UA) Neg (Negative) mg/dL Urine Ketones Neg (Negative) mg/dL Urine Blood Neg (Negative) Urine Nitrite Neg (Negative) Urine Bilirubin Neg (Negative) Urine Urobilinogen 2.0 (<2.0) mg/dL Ur Leukocyte Esterase Tr (Negative) Urine WBC (Auto) 10.0 H (0.0-6.0) /HPF Urine RBC (Auto) 1.0 (0.0-6.0) /HPF U Epithel Cells (Auto) 1.0 (0-13.0) /HPF Urine Bacteria (Auto) 1+ (Negative) /HPF Hyaline Casts 19 /LPF Granular Casts 4 /LPF Urine Mucus Few /HPF - Radiology Data Radiology results: report reviewed, image reviewed Print Report Referring Physician: KIRILL NG Patient Name: ONESIMO SAVAGE Date of : 1950 Sex: Female Report Date: 2018-05-23 Report Status: Finalized Findings [facility] [address] [place] [address] XRay Report Signed Patient: ONESIMO SAVAGE MR# : [id number] : 1950 Acct:[id number] Age/Sex: 67 / F ADM Date: 05/23/18 Loc: ED Attending Dr: Ordering Physician: KIRILL NG MD Date of Service: 05/23/18 Procedure(s): XR chest 1V ap Accession Number(s): [id number] cc: KIRILL NG MD Fluoro Time In Minutes: PROCEDURE: XR CHEST 1V AP TECHNIQUE: Frontal portable view of the chest HISTORY: dyspnea COMPARISONS: Chest x-ray dated February 01, 2018. The report of that study is not available for review at the time of this dictation. FINDINGS: Visualization of fine detail in the lung bases is limited by artifact created by large body habitus. There is prominence of the interstitial markings in both lungs similar in appearance to the previous study. There is a possible retrocardiac density in the right medial lung base. Differen tial diagnosis includes artifact. There is no evidence of pneumothorax or pleural fluid collection. The cardiac silhouette is enlarged. The thoracic aorta and bony structures are unremarkable. Visualization of detail of the thoracic spine is limited. IMPRESSION: 1. Study degraded by artifact created by large body habitus. 2. Possible retrocardiac density right medial lung base. Differential diagnosis includes artifact. CT chest would be helpful for further evaluation. 3. Stable enlarged cardiac silhouette. This document is electronically signed by Angella Lopez MD., May 23 2018 07:18:30 PM ET Transcribed By: ED Dictated By: ANGELLA LOPEZ MD Electronically Authenticated By: ANGELLA LOPEZ MD Signed Date/Time: 05/23/181919 Critical care attestation.: If time is entered above; I have spent that time in minutes in the direct care of this critically ill patient, excluding procedure time. ED Disposition Is pt being admited?: No Does the pt Need Aspirin: No
[2018-05-23 22:22] VITALS: BP 133/63
== END 2018-05-23 22:23 | disposition home or self-care (01) ==
LOC: ED 16:31
DX: I13.0 Hypertensive heart and chronic kidney disease with heart failure and stage 1 through stage 4 chronic kidney disease, or unspecified chronic kidney disease (principal); N18.9 Chronic kidney disease, unspecified; I50.9 Heart failure, unspecified; I25.2 Old myocardial infarction; M19.90 Unspecified osteoarthritis, unspecified site; J44.9 Chronic obstructive pulmonary disease, unspecified; R60.9 Edema, unspecified; Z87.891 Personal history of nicotine dependence; Z95.5 Presence of coronary angioplasty implant and graft; Z88.1 Allergy status to other antibiotic agents
CPT/HCPCS: 36415; 71045; 80048; 81001; 83880; 84484; 85025; 93005; 93010; 96360; 96361; 99284; J7040